=== PATIENT | male | born 1955 | race Caucasian/White ===

== ENCOUNTER → 2019-01-05 | Outpatient (CLI) | payer MEDICAID ==
--- NOTE | 2019-01-05 14:54 | Diagnostic Imaging Report ---
INDICATION: Chronic neck pain. Time of exam 2:34 p.m. FINDINGS: Three-view cervical spine were obtained. There is significant degenerative disc disease identified at the C5-6 and C6-7 levels. C7-T1 levels not included on the study. Prevertebral tissues are normal. Odontoid appears intact. No fractures are seen. IMPRESSION: Cervical spondylosis. No acute bony abnormality is detected. Dictated by: Dictated on workstation # [id number]
== END ==
LOC: RAD FS 14:28
PROVIDERS: ATTEND Family Medicine
DX: M47.812 Spondylosis without myelopathy or radiculopathy, cervical region (principal)
CPT/HCPCS: 72040

== ENCOUNTER 2019-07-08 11:59 | Emergency (ER) | payer MEDICAID ==
[~2019-07-08] VITALS: Ht 175 cm; Wt 93.0 kg
--- NOTE | 2019-07-08 12:27 | ED General ---
General Chief Complaint: General Problems/Pain Stated Complaint: GI/SOB Nursing Triage Note: NAUSEA AND HAD SOME COUGH WHEN LYING DOWN WITH SOB LAST PM Nursing Sepsis Screen: No Definite Risk Source of Information: Patient, EMS History of Present Illness Date Seen by Provider: Jul 08, 2019 Time Seen by Provider: 12:08 Initial Comments 64 yo M presenting with complaints of shortness of breath and epigastric bloating and discomfort. He states he was feeling bad at home and became so short of breath that he passed out. he has been constipated as well. He feels he has not been drinking enough water. This morning he felt that his mouth was dry and his stomach was bothering him some so he drank a coke instead of drinking his usual water or tea. Then he had increased gas and belching after that. He had some nausea with this as well. He also felt short of breath and took his breathing treatment at home. He felt light headed and was having a panic attack and states he passed out and his his left hand causing a bruise to it. He then had crawled to the couch and was trying to rest and make himself relax. He could not get the gas and bloating to improve so he finally called EMS to bring him to the hospital. Allergies and Home Medications Allergies Coded Allergies: No Known Drug Allergies (Unverified , 07/08/19) Home Medications Prednisone 20 Mg Tab, 40 MG PO DAILY Prescribed by: VASILE SMITH on 07/08/19 5592 Patient Home Medication List Home Medication List Reviewed: Yes Review of Systems Review of Systems Constitutional: No chills, No fever; malaise EENTM: No ear discharge, No ear pain, No hoarseness, No epistaxis, No nose congestion, No throat pain Respiratory: cough, dyspnea on exertion; No hemoptysis; phlegm, short of breath; No stridor; wheezing Cardiovascular: No chest pain, No palpitations; syncope (states he passed out when he became short of breath and panicked) Gastrointestinal: abdominal pain (bloating and gas since drinking coke this am), constipation; No diarrhea; nausea; No vomiting Genitourinary: no symptoms reported Musculoskeletal: other (bruise to left hand after hitting it when he passed out this am.) Skin: other (bruise to left hand from hitting it this am after he passed out) Psychiatric/Neurological: Denies Headache, Denies Seizure Past Cwuvmdq-Zxkyih-Mqkfrw Hx Past Med/Social Hx: Reviewed Nursing Past Med/Soc Hx Patient Social History Alcohol Use: Denies Use Recreational Drug Use: No Smoking Status: Never a Smoker 2nd Hand Smoke Exposure: No Recent Foreign Travel: No Contact w/Someone Who Travel: No Recent Infectious Disease Expo: No Recent Hopitalizations: No Physical Abuse: No Sexual Abuse: No Mistreated: No Fear: No Seasonal Allergies Seasonal Allergies: No Past Medical History Surgeries: Yes Gallbladder Respiratory: Yes COPD Cardiac: No Neurological: No Genitourinary: No Gastrointestinal: No Musculoskeletal: No Endocrine: No HEENT: No Cancer: No Psychosocial: No Integumentary: No Blood Disorders: No (CARLOS) Physical Exam Vital Signs Vital Signs - First Documented 07/08/19 07/08/19 12:11 13:52 Temp 36.9 Pulse 72 Resp 18 B/P (MAP) 139/85 (103) Pulse Ox 99 O2 Delivery Room Air Capillary Refill : Less Than 3 Seconds Height, Weight, BMI Height: '" Weight: lbs. oz. kg; 30.00 BMI Method: General Appearance: No Apparent Distress, WD/WN HEENT: PERRL/EOMI, Normal ENT Inspection, Pharynx Normal Neck: Full Range of Motion, Normal Inspection, Non Tender, Supple Respiratory: Chest Non Tender, Lungs Clear, Normal Breath Sounds, No Accessory Muscle Use, No Respiratory Distress Cardiovascular: Regular Rate, Rhythm, No Murmur, Normal Peripheral Pulses Gastrointestinal: No Pulsatile Mass, Soft, Abnormal Bowel Sounds (hyperactive), Distended; No Guarding, No Hepatomegaly, No Hernia, No Mass, No Rebound; Tenderness (mild epigastric tenderness) Rectal: Deferred Extremity: Normal Capillary Refill, Normal Inspection, Normal Range of Motion, Non Tender, No Pedal Edema Neurologic/Psychiatric: Alert, Oriented x3, No Motor/Sensory Deficits, Normal 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, 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 Skin: Warm/Dry, Other (mild faint bruise to back of left hand) Progress/Results/Core Measures Suspected Sepsis Recent Fever Within 48 Hours: No Infection Criteria Present: None New/Unexplained Altered Menta: No Sepsis Screen: No Definite Risk SIRS Temperature: Pulse: 72 Respiratory Rate: 18 Laboratory Tests 07/08/19 12:13: White Blood Count 13.8H Blood Pressure 139 /85 Mean: 103 Laboratory Tests 1/10/20 12:13: Creatinine 1.01, Platelet Count 242, Total Bilirubin 0.4 Results/Orders Lab Results Laboratory Tests Test 07/08/19 12:13 07/08/19 12:30 Range/Units White Blood Count 13.8 H 4.3-11.0 10^3/uL Red Blood Count 4.93 4.35-5.85 10^6/uL Hemoglobin 13.7 13.3-17.7 G/DL Hematocrit 43 40-54 % Mean Corpuscular Volume 87 80-99 FL Mean Corpuscular Hemoglobin 28 25-34 PG Mean Corpuscular Hemoglobin Concent 32 32-36 G/DL Red Cell Distribution Width 13.0 10.0-14.5 % Platelet Count 242 130-400 10^3/uL Mean Platelet Volume 10.0 7.4-10.4 FL Neutrophils (%) (Auto) 90 H 42-75 % Lymphocytes (%) (Auto) 3 L 12-44 % Monocytes (%) (Auto) 6 0-12 % Eosinophils (%) (Auto) 1 0-10 % Basophils (%) (Auto) 0 0-10 % Neutrophils # (Auto) 12.4 H 1.8-7.8 X 10^3 Lymphocytes # (Auto) 0.5 L 1.0-4.0 X 10^3 Monocytes # (Auto) 0.8 0.0-1.0 X 10^3 Eosinophils # (Auto) 0.1 0.0-0.3 10^3/uL Basophils # (Auto) 0.0 0.0-0.1 10^3/uL Neutrophils % (Manual) 85 % Lymphocytes % (Manual) 3 % Monocytes % (Manual) 3 % Eosinophils % (Manual) 1 % Band Neutrophils 8 % Blood Morphology Comment NORMAL Sodium Level 141 135-145 MMOL/L Potassium Level 3.9 3.6-5.0 MMOL/L Chloride Level 105 98-107 MMOL/L Carbon Dioxide Level 21 21-32 MMOL/L Anion Gap 15 H 5-14 MMOL/L Blood Urea Nitrogen 25 H 7-18 MG/DL Creatinine 1.01 0.60-1.30 MG/DL Estimat Glomerular Filtration Rate > 60 BUN/Creatinine Ratio 25 Glucose Level 138 H 70-105 MG/DL Calcium Level 8.8 8.5-10.1 MG/DL Corrected Calcium 8.6 8.5-10.1 MG/DL Total Bilirubin 0.4 0.1-1.0 MG/DL Aspartate Amino Transf (AST/SGOT) 26 5-34 U/L Alanine Aminotransferase (ALT/SGPT) 25 0-55 U/L Alkaline Phosphatase 52 40-136 U/L Total Protein 6.9 6.4-8.2 GM/DL Albumin 4.2 3.2-4.5 GM/DL Lipase 19 8-78 U/L Urine Color YELLOW Urine Clarity CLEAR Urine pH 6.0 5-9 Urine Specific [place] 1.025 H 1.016-1.022 Urine Protein NEGATIVE NEGATIVE Urine Glucose (UA) NEGATIVE NEGATIVE Urine Ketones NEGATIVE NEGATIVE Urine Nitrite NEGATIVE NEGATIVE Urine Bilirubin NEGATIVE NEGATIVE Urine Urobilinogen 0.2 < = 1.0 MG/DL Urine Leukocyte Esterase NEGATIVE NEGATIVE Urine RBC (Auto) NEGATIVE NEGATIVE Urine RBC NONE /HPF Urine WBC 0-2 /HPF Urine Squamous Epithelial Cells 0-2 /HPF Urine Crystals NONE /LPF Urine Bacteria NEGATIVE /HPF Urine Casts NONE /LPF Urine Mucus LARGE H /LPF Urine Culture Indicated NO My Orders Orders - VASILE SMITH MD Comprehensive Metabolic Panel (07/08/19 12:26) Lipase (07/08/19 12:26) Ua Culture If Indicated (07/08/19 12:26) Ed Iv/Invasive Line Start (07/08/19 12:26) Acute Abd Series (07/08/19 12:26) Cbc With Automated Diff (07/08/19 12:26) Manual Differential (07/08/19 12:13) Methylprednisolone Sod Succ (Solu-Medrol (07/08/19 13:41) Vital Signs/I&O 07/08/19 07/08/19 12:11 13:52 Temp 36.9 36.1 Pulse 72 72 Resp 18 18 B/P (MAP) 139/85 (103) 128/76 Pulse Ox 99 O2 Delivery Room Air Room Air Capillary Refill : Less Than 3 Seconds Blood Pressure Mean: 103 Progress Note #1: Progress Note obtain basic labs and check acute abdomen series films to check chest and abdomen. Give IVF for hydration. Progress Note #2: Progress Note No acute abnormality on Acute abdomen series. He does have increased stool and gas but no obstruction. no infiltrate on his lungs. Progress Note #3: Progress Note Labs stable with mild elevation of WBC count. He has improved symptoms with treatment in the ED. Will treat with steroid by IV and continue po at home for burst to help with his breathing and COPD. Check with pcp for continued concerns. For constipation try to push fluids and take stool softener. Take gas x medicine and limit soda to decrease his gas Diagnostic Imaging Diagonstic Imaging: Xray Plain Films/CT/US/NM/MRI: chest, abdomen Comments NAME: MAVIS GREENBERG [facility] REC#: [id number] PT STATUS: REG ER : 1955 PHYSICIAN: VASILE SMITH MD ADMIT DATE: 07/08/19/ER FS Draft Date of Exam:07/08/19 ACUTE ABD SERIES INDICATION: Cough, nausea COMPARISON: None available TECHNIQUE: 4 radiographs of the abdomen and chest dated 07/08/2019. FINDINGS: The cardiac silhouette is within normal limits in size. No significant pulmonary vascular congestion. The lungs are clear of focal pulmonary opacity. No pleural effusion. No pneumothorax. No acute osseous abnormality. Surgical clips are present within the right upper quadrant of the abdomen. Gas and stool is noted throughout the colon. No dilated loops of small bowel. No differential air-fluid levels. No free air. No suspicious calcifications overlying the renal shadows. No acute osseous abnormality. IMPRESSION: No acute abnormality identified. Dictated on workstation # [id number] Dict: 07/08/19 1251 Trans: 07/08/19 1256 [facility] [id number] Interpreted by: LAZARO FORBES MD Electronically signed by: Departure Impression Primary Impression: Mild dehydration Additional Impressions: COPD (chronic obstructive pulmonary disease) Qualified Codes: J41.0 - Simple chronic bronchitis Abdominal bloating Constipation Qualified Codes: K59.00 - Constipation, unspecified Disposition: HOME, SELF-CARE Condition: Stable Departure-Patient Inst. Decision time for Depature: 13:42 Referrals: DANYELLE CANTU MD (PCP/Family) Primary Care Physician Patient Instructions: Dehydration, Adult (DC), COPD Including Emphysema (DC), Constipation, Adult (DC) Add. Discharge Instructions: Continue to drink plenty of water and stay well hydrated. Avoid Coke and soda as they can cause you to have more gas and bloating. Try using the stool softener you have at home to help with the constipation and the Gas pill you have to help with gas and bloating. Check with clinic for continued problems and concerns All discharge instructions reviewed with patient and/or family. Voiced understanding. Scripts Prednisone (Prednisone) 20 Mg Tab 40 MG PO DAILY for COPD for 4 Days, #8 TAB 0 Refills Prov: VASILE SMITH MD 07/08/19 VASILE SMITH MD Jul 08, 2019 12:27
--- NOTE | 2019-07-08 12:56 | Diagnostic Imaging Report ---
INDICATION: Cough, nausea COMPARISON: None available TECHNIQUE: 4 radiographs of the abdomen and chest dated 07/08/2019. FINDINGS: The cardiac silhouette is within normal limits in size. No significant pulmonary vascular congestion. The lungs are clear of focal pulmonary opacity. No pleural effusion. No pneumothorax. No acute osseous abnormality. Surgical clips are present within the right upper quadrant of the abdomen. Gas and stool is noted throughout the colon. No dilated loops of small bowel. No differential air-fluid levels. No free air. No suspicious calcifications overlying the renal shadows. No acute osseous abnormality. IMPRESSION: No acute abnormality identified. Dictated by: Dictated on workstation # [id number]
[2019-07-08 13:10] LABS: CLARITY,URINE CLEAR; COLOR,URINE YELLOW
[2019-07-08 13:11] LABS: BACTERIA,URINE NEGATIVE /HPF; BILIRUBIN,URINE NEGATIVE (NEGATIVE); GLUCOSE, URINE (UA) NEGATIVE (NEGATIVE); KETONES,URINE NEGATIVE (NEGATIVE); LEUKOCYTE ESTERASE ,URINE NEGATIVE (NEGATIVE); NITRITE,URINE NEGATIVE (NEGATIVE); PROTEIN,URINE NEGATIVE (NEGATIVE); SQUAMOUS EPITHELIAL CELL,UR 0-2 /HPF; WBC,URINE 0-2 /HPF
[2019-07-08 13:12] LABS: ALKALINE PHOSPHATASE 52 U/L (40-136); BILIRUBIN,TOTAL 0.4 MG/DL (0.1-1.0); BUN/CREATININE RATIO 25; CALCIUM 8.8 MG/DL (8.5-10.1); CARBON DIOXIDE 21 MMOL/L (21-32); CHLORIDE 105 MMOL/L (98-107); CREATININE SERUM 1.01 MG/DL (0.60-1.30); GFR ESTIMATED > 60; GLUCOSE 138 MG/DL (70-105); POTASSIUM 3.9 MMOL/L (3.6-5.0); SODIUM 141 MMOL/L (135-145)
[2019-07-08 13:13] LABS: ALANINE AMINOTRANSFERASE 25 U/L (0-55); ALBUMIN 4.2 GM/DL (3.2-4.5); HEMATOCRIT 43 % (40-54); HEMOGLOBIN 13.7 G/DL (13.3-17.7); LIPASE 19 U/L (8-78); MEAN CORPUSCULAR HEMOGLOBIN 28 PG (25-34); MEAN CORPUSCULAR HGB CONC 32 G/DL (32-36); MEAN CORPUSCULAR VOLUME 87 FL (80-99); TOTAL PROTEIN 6.9 GM/DL (6.4-8.2); WHITE BLOOD COUNT 13.8 10^3/uL (4.3-11.0)
[2019-07-08 13:14] LABS: BASOPHILS % (AUTO) 0 % (0-10); EOSINOPHILS # (AUTO) 0.1 10^3/uL (0.0-0.3); EOSINOPHILS % (AUTO) 1 % (0-10); LYMPHOCYTES # (AUTO) 0.5 X 10^3 (1.0-4.0); LYMPHOCYTES % (AUTO) 3 % (12-44); MONOCYTES # (AUTO) 0.8 X 10^3 (0.0-1.0); MONOCYTES % (AUTO) 6 % (0-12); NEUTROPHILS # (AUTO) 12.4 X 10^3 (1.8-7.8); NEUTROPHILS % (AUTO) 90 % (42-75); PLATELET COUNT 242 10^3/uL (130-400)
[2019-07-08 13:15] LABS: BAND NEUTROPHILS 8 %; EOSINOPHILS % (MANUAL) 1 %; LYMPHOCYTES % (MANUAL) 3 %; MONOCYTES % (MANUAL) 3 %; NEUTROPHILS % (MANUAL) 85 %; RBC MORPH NORMAL
[2019-07-08] MEDS ORDERED: methylPREDNISolone 125 MG (Solu-MEDROL) VIAL IVP STA (13:41)
[2019-07-08] MEDS ORDERED: PRD20T PO (13:42)
[2019-07-08 13:52] VITALS: BP 128/76
== END 2019-07-08 13:53 | disposition home or self-care (01) ==
LOC: EDUNIT# 11:59 → ER FS 12:00
DX: E86.0 Dehydration (principal); J44.9 Chronic obstructive pulmonary disease, unspecified; K59.00 Constipation, unspecified
CPT/HCPCS: 36415; 74022; 80053; 81000; 83690; 85007; 85027

== ENCOUNTER 2019-07-12 12:51 | Emergency (ER) | payer MEDICAID ==
[~2019-07-12] VITALS: Ht 175.3 cm; Wt 72.7 kg
[~2019-07-12 12:51] MED LIST: PRD20T PO
--- NOTE | 2019-07-12 13:21 | ED Abdominal Pain ---
General Chief Complaint: Abdominal/GI Problems Stated Complaint: BOWEL CONSTIPATION Source of Information: Patient Exam Limitations: No Limitations History of Present Illness Date Seen by Provider: Jul 12, 2019 Time Seen by Provider: 13:00 Initial Comments The patient is a pleasant 64-year-old male presents for evaluation of abdominal discomfort and constipation for the last 2 weeks or so. He states that he came to the emergency department earlier and had an x-ray and some labs performed which were essentially unremarkable and he was sent home. He states he has not had a bowel movement since his ER visit. He also is complaining of some gas discomfort/left chest discomfort. He is alert and oriented 4, calm, and appears to be in no distress. He denies fevers or chills, nausea or vomiting, shortness of breath, back pain, dizziness, syncope, or any other complaints. Allergies and Home Medications Allergies Coded Allergies: No Known Drug Allergies (Unverified , 07/08/19) Home Medications Prednisone 20 Mg Tab, 40 MG PO DAILY Prescribed by: VASILE SMITH on 07/08/19 1342 Patient Home Medication List Home Medication List Reviewed: Yes Review of Systems Review of Systems Constitutional: no symptoms reported EENTM: No Symptoms Reported Respiratory: No Symptoms Reported Cardiovascular: No Symptoms Reported Gastrointestinal: Abdominal Pain, Constipated Genitourinary: No Symptoms Reported Musculoskeletal: no symptoms reported Skin: no symptoms reported Psychiatric/Neurological: No Symptoms Reported Endocrine: No Symptoms Reported Hematologic/Lymphatic: No Symptoms Reported All Other Systems Reviewed Negative Unless Noted: Yes Past Otjpwbv-Ztarmx-Qxrevf Hx Past Med/Social Hx: Reviewed Nursing Past Med/Soc Hx Patient Social History 2nd Hand Smoke Exposure: No Recent Foreign Travel: Yes Recent Hopitalizations: No Seasonal Allergies Seasonal Allergies: No Past Medical History Surgeries: Yes Gallbladder Respiratory: Yes COPD Cardiac: No Neurological: No Genitourinary: No Gastrointestinal: No Musculoskeletal: No Endocrine: No HEENT: No Cancer: No Psychosocial: No Integumentary: No Blood Disorders: No (CARLOS) Physical Exam Vital Signs Vital Signs - First Documented 07/12/19 12:55 Temp 36.7 Pulse 70 Resp 18 B/P (MAP) 142/99 (113) Pulse Ox 94 O2 Delivery Room Air Capillary Refill : Height/Weight/BMI Height: '" Weight: lbs. oz. kg; 30.00 BMI Method: General Appearance: WD/WN, no apparent distress HEENT: PERRL/EOMI, normal ENT inspection, TMs normal Neck: non-tender, full range of motion, supple Respiratory: chest non-tender, lungs clear, normal breath sounds, no respirato ry distress Cardiovascular: normal peripheral pulses, regular rate, rhythm, no edema, no gallop Gastrointestinal: normal bowel sounds, non tender, soft, abnormal bowel sounds (hypoactive), distended (mildly), tenderness (generalized, mild) Extremities: normal range of motion, non-tender, normal inspection, no pedal e bur[place], normal capillary refill 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, no motor/sensory deficits, alert, normal mood/affect, oriented x 3 Skin: normal color, warm/dry Progress/Results/Core Measures Results/Orders Lab Results Laboratory Tests Test 07/12/19 13:05 Range/Units White Blood Count 10.8 4.3-11.0 10^3/uL Red Blood Count 4.80 4.35-5.85 10^6/uL Hemoglobin 13.4 13.3-17.7 G/DL Hematocrit 41 40-54 % Mean Corpuscular Volume 85 80-99 FL Mean Corpuscular Hemoglobin 28 25-34 PG Mean Corpuscular Hemoglobin Concent 33 32-36 G/DL Red Cell Distribution Width 13.1 10.0-14.5 % Platelet Count 276 130-400 10^3/uL Mean Platelet Volume 10.1 7.4-10.4 FL Neutrophils (%) (Auto) 61 42-75 % Lymphocytes (%) (Auto) 26 12-44 % Monocytes (%) (Auto) 9 0-12 % Eosinophils (%) (Auto) 2 0-10 % Basophils (%) (Auto) 1 0-10 % Neutrophils # (Auto) 6.6 1.8-7.8 X 10^3 Lymphocytes # (Auto) 2.9 1.0-4.0 X 10^3 Monocytes # (Auto) 1.0 0.0-1.0 X 10^3 Eosinophils # (Auto) 0.2 0.0-0.3 10^3/uL Basophils # (Auto) 0.1 0.0-0.1 10^3/uL Sodium Level 141 135-145 MMOL/L Potassium Level 3.1 L 3.6-5.0 MMOL/L Chloride Level 104 98-107 MMOL/L Carbon Dioxide Level 22 21-32 MMOL/L Anion Gap 15 H 5-14 MMOL/L Blood Urea Nitrogen 12 7-18 MG/DL Creatinine 0.92 0.60-1.30 MG/DL Estimat Glomerular Filtration Rate > 60 BUN/Creatinine Ratio 13 Glucose Level 116 H 70-105 MG/DL Calcium Level 9.1 8.5-10.1 MG/DL Corrected Calcium 8.9 8.5-10.1 MG/DL Total Bilirubin 0.3 0.1-1.0 MG/DL Aspartate Amino Transf (AST/SGOT) 17 5-34 U/L Alanine Aminotransferase (ALT/SGPT) 36 0-55 U/L Alkaline Phosphatase 64 40-136 U/L Troponin I < 0.30 <0.30 NG/ML Total Protein 6.9 6.4-8.2 GM/DL Albumin 4.2 3.2-4.5 GM/DL My Orders Orders - RAMIREZ HOOKS DO Cbc With Automated Diff (07/12/19 13:01) Ekg Tracing (07/12/19 13:01) Comprehensive Metabolic Panel (07/12/19 13:01) O2 (07/12/19 13:01) Monitor-Rhythm Ecg Trace Only (07/12/19 13:01) Ed Iv/Invasive Line Start (07/12/19 13:01) Troponin I Fs (07/12/19 13:01) Acute Abd Series (07/12/19 13:01) Ct Abdomen/Pelvis W (07/12/19 13:13) Iohexol Injection (Omnipaque 350 Mg/Ml 1 (07/12/19 13:45) Received Contrast (Hold Metformin- Contr (07/12/19 13:45) Sodium Chloride Flush (Catheter Flush Sy (07/12/19 13:45) Ns (Ivpb) (Sodium Chloride 0.9% Ivpb Bag (07/12/19 13:45) Potassium Cl 10meq/50ml Ivpb (Kcl 10 Meq (07/12/19 14:45) Docusate Sodium Oral Solution (Colace Or (07/12/19 15:15) Magnesium Citrate Oral Soln (Citrate Of (07/12/19 15:15) Bisacodyl Suppository (Dulcolax Supposit (07/12/19 15:15) Potassium Chloride (Tablet) (K Dur Table (07/12/19 15:15) Medications Given in ED Current Medications Medications Dose Ordered Sig/Ghanshyam Route Start Time Stop Time Status Last Admin Dose Admin Iohexol 100 ml ONCE ONCE IV 07/12/19 13:45 07/12/19 13:46 DC 07/12/19 14:32 100 ML Sodium Chloride 10 ml NEEDED PRN IV 07/12/19 13:45 07/12/19 14:32 10 ML Sodium Chloride 100 ml ONCE ONCE IV 07/12/19 13:45 07/12/19 13:46 DC 07/12/19 14:32 100 ML Vital Signs/I&O 07/12/19 12:55 Temp 36.7 Pulse 70 Resp 18 B/P (MAP) 142/99 (113) Pulse Ox 94 O2 Delivery Room Air Progress Progress Note : Progress Note @1530 - Patient updated on lab and imaging results. There is no evidence of bowel obstruction. He states he would like to go home. He denies any chest discomfort or any other complaints at this time. He'll be given medications here and then additional medications to go home with to relieve his constipation. Advised patient to follow with his PCP in the next 1-2 days and to return to the Emergency Department immediately for new or worsening symptoms. Diagnostic Imaging Diagonstic Imaging: CT Comments CT ABDOMEN/PELVIS W EXAMINATION: CT Abdomen and Pelvis with intravenous contrast. TECHNIQUE: Multiple contiguous axial images were obtained through the abdomen and pelvis after the uneventful administration of intravenous contrast. All CT scans use one or more of the following dose optimizing techniques: automated exposure control, MA and/or KvP adjustment based on a patient size and exam type, or iterative reconstruction. HISTORY: Constipation for 3 days. COMPARISON: Abdominal radiographs performed earlier the same date. FINDINGS: The heart is unremarkable. The included lung bases are clear. There is a saccular aneurysm off the right renal artery measuring 1.7 x 1.3 cm (image 31 series 2). The kidneys have an unremarkable appearance without evidence of hydronephrosis or obstructing calculi. No enhancing renal masses are seen. The liver, spleen, pancreas, and adrenal glands have a normal appearance. The gallbladder is surgically absent. There is no pathologically enlarged mesenteric or retroperitoneal adenopathy. The bowel loops are nondilated. The appendix is visualized in the right lower quadrant and has a normal appearance. Diverticulosis of the colon is seen without evidence of acute diverticulitis. There is no free fluid or free air. No acute osseous abnormalities. There is calcified aortic and iliac atherosclerotic plaque without evidence of aneurysm. Ureters and bladder are grossly normal. There is no free air, loculated collection, or adenopathy in the pelvis. IMPRESSION: 1. No significant stool burden or evidence of bowel obstruction. 2. Diverticulosis without evidence of acute diverticulitis. 3. 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 Recommend follow-up in 6 months with CTA of the abdomen and pelvis to document stability. Dictated on workstation # [id number] Dict: 07/12/19 1444 Trans: 07/12/[address] [facility] [id number] Interpreted by: NGHIA TRUJILLO DO Electronically signed by: Departure Impression Primary Impression: Constipation Additional Impression: Hypokalemia Disposition: HOME, SELF-CARE Condition: Stable Departure-Patient Inst. Decision time for Depature: 15:42 Referrals: ADNYELLE CANTU MD (PCP/Family) Primary Care Physician Patient Instructions: Constipation, Adult (DC), Hypokalemia (DC) Add. Discharge Instructions: Take the prescribed medication as directed. Return to the Emergency Department immediately for new or worsening symptoms. Follow-up with your doctor in the next 2-3 days. Scripts Potassium Chloride (Potassium Chloride) 20 Meq Tablet.er 40 MEQ PO DAILY for 5 Days, #10 TAB Prov: RAMIREZ HOOKS DO 07/12/19 Magnesium Citrate (Magnesium Citrate) 296 Ml Solution 296 ML PO BID for Constipation for 7 Days, #14 EA Prov: RAMIREZ HOOKS DO 07/12/19 Bisacodyl (Dulcolax) 10 Mg Supp.rect 10 MG RC Q6H PRN for CONSTIPATION-1ST LINE for 7 Days, #14 SUPP.RECT Prov: RAMIREZ HOOKS DO 07/12/19 Docusate Sodium (Colace) 100 Mg Capsule 100 MG PO BID for 10 Days, #20 CAP Prov: RAMIREZ HOKOS DO 07/12/19 RAMIREZ HOOKS DO Jul 12, 2019 13:21
[2019-07-12] MEDS ORDERED: CATHETER FLUSH 10 ML SYR IV PRN (13:45)
[2019-07-12] MEDS ORDERED: HOLD METFORMIN - RECEIVED CONTRAST 20 ML VIAL IV SCH (13:45)
[2019-07-12] MEDS ORDERED: NS 100 ML (IVPB) BAG IV ONE (13:45)
[2019-07-12] MEDS ORDERED: IOHEXOL 350 MG/ML 100 ML (OMNIPAQUE 350) VIAL IV ONE (13:45)
--- NOTE | 2019-07-12 13:46 | Diagnostic Imaging Report ---
INDICATION: Constipation. TIME OF EXAM: 01:11 p.m. FINDINGS: The heart size is normal. The lungs are clear. No free air is detected. There is moderate stool throughout the colon. Bowel gas pattern is nonobstructed. No pathologic calcifications are seen. IMPRESSION: Moderate stool. The study is otherwise unremarkable. Dictated by: Dictated on workstation # [id number]
[2019-07-12 13:50] LABS: ALKALINE PHOSPHATASE 64 U/L (40-136); BILIRUBIN,TOTAL 0.3 MG/DL (0.1-1.0); BUN/CREATININE RATIO 13; CALCIUM 9.1 MG/DL (8.5-10.1); CARBON DIOXIDE 22 MMOL/L (21-32); CHLORIDE 104 MMOL/L (98-107); CREATININE SERUM 0.92 MG/DL (0.60-1.30); GFR ESTIMATED > 60; GLUCOSE 116 MG/DL (70-105); POTASSIUM 3.1 MMOL/L (3.6-5.0); SODIUM 141 MMOL/L (135-145)
[2019-07-12 13:51] LABS: ALANINE AMINOTRANSFERASE 36 U/L (0-55); ALBUMIN 4.2 GM/DL (3.2-4.5); HEMATOCRIT 41 % (40-54); HEMOGLOBIN 13.4 G/DL (13.3-17.7); MEAN CORPUSCULAR HEMOGLOBIN 28 PG (25-34); MEAN CORPUSCULAR VOLUME 85 FL (80-99); TOTAL PROTEIN 6.9 GM/DL (6.4-8.2); WHITE BLOOD COUNT 10.8 10^3/uL (4.3-11.0)
[2019-07-12 13:52] LABS: BASOPHILS # (AUTO) 0.1 10^3/uL (0.0-0.1); BASOPHILS % (AUTO) 1 % (0-10); EOSINOPHILS # (AUTO) 0.2 10^3/uL (0.0-0.3); EOSINOPHILS % (AUTO) 2 % (0-10); LYMPHOCYTES # (AUTO) 2.9 X 10^3 (1.0-4.0); LYMPHOCYTES % (AUTO) 26 % (12-44); MEAN CORPUSCULAR HGB CONC 33 G/DL (32-36); MEAN PLATELET VOLUME 10.1 FL (7.4-10.4); MONOCYTES % (AUTO) 9 % (0-12); NEUTROPHILS # (AUTO) 6.6 X 10^3 (1.8-7.8); NEUTROPHILS % (AUTO) 61 % (42-75); PLATELET COUNT 276 10^3/uL (130-400); RED CELL DISTRIBUTION WIDTH 13.1 % (10.0-14.5)
[2019-07-12] MEDS ORDERED: POTASSIUM CL 10MEQ/50ML IVPB 50 ML IV SCH (14:45)
--- NOTE | 2019-07-12 14:52 | Diagnostic Imaging Report ---
EXAMINATION: CT Abdomen and Pelvis with intravenous contrast. TECHNIQUE: Multiple contiguous axial images were obtained through the abdomen and pelvis after the uneventful administration of intravenous contrast. All CT scans use one or more of the following dose optimizing techniques: automated exposure control, MA and/or KvP adjustment based on a patient size and exam type, or iterative reconstruction. HISTORY: Constipation for 3 days. COMPARISON: Abdominal radiographs performed earlier the same date. FINDINGS: The heart is unremarkable. The included lung bases are clear. There is a saccular aneurysm off the right renal artery measuring 1.7 x 1.3 cm (image 31 series 2). The kidneys have an unremarkable appearance without evidence of hydronephrosis or obstructing calculi. No enhancing renal masses are seen. The liver, spleen, pancreas, and adrenal glands have a normal appearance. The gallbladder is surgically absent. There is no pathologically enlarged mesenteric or retroperitoneal adenopathy. The bowel loops are nondilated. The appendix is visualized in the right lower quadrant and has a normal appearance. Diverticulosis of the colon is seen without evidence of acute diverticulitis. There is no free fluid or free air. No acute osseous abnormalities. There is calcified aortic and iliac atherosclerotic plaque without evidence of aneurysm. Ureters and bladder are grossly normal. There is no free air, loculated collection, or adenopathy in the pelvis. IMPRESSION: 1. No significant stool burden or evidence of bowel obstruction. 2. Diverticulosis without evidence of acute diverticulitis. 3. 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 Recommend follow-up in 6 months with CTA of the abdomen and pelvis to document stability. Dictated by: Dictated on workstation # [id number]
[2019-07-12] MEDS ORDERED: BISACODYL 10 MG SUPP (DULCOLAX) PR ONE (15:15)
[2019-07-12] MEDS ORDERED: MAGNESIUM CITRATE 300 ML BTL PO ONE (15:15)
[2019-07-12] MEDS ORDERED: DOCUSATE SODIUM 10 MG/ML 10 ML UDC (COLACE) PO PRN (15:15)
[2019-07-12] MEDS ORDERED: KCL 20 MEQ TAB (K-DUR) PO ONE (15:15)
[2019-07-12] MEDS ORDERED: DOCU-143 PO (15:51)
[2019-07-12] MEDS ORDERED: BISA10SU58 RC (15:51)
[2019-07-12] MEDS ORDERED: MAGN296S50 PO (15:51)
[2019-07-12] MEDS ORDERED: POTA-51 PO (15:52)
[2019-07-12 16:30] VITALS: BP 122/74
== END 2019-07-12 16:30 | disposition home or self-care (01) ==
LOC: EDUNIT# 12:51 → ER FS 12:52
DX: K59.00 Constipation, unspecified (principal); E87.6 Hypokalemia; J44.9 Chronic obstructive pulmonary disease, unspecified
CPT/HCPCS: 36415; 74022; 74177; 80053; 84484; 85025; 93005; 93041; 96360

== ENCOUNTER 2020-04-02 13:48 | Emergency (ER) | payer MEDICAID ==
[~2020-04-02] VITALS: Ht 175.2 cm; Wt 97.0 kg
[~2020-04-02 13:48] MED LIST changes: +BISA10SU58 RC; +DOCU-143 PO; +MAGN296S71 PO; +POTA-51 PO
[2020-04-02 14:13] LABS: BASOPHILS % (AUTO) 1 % (0-10); EOSINOPHILS % (AUTO) 2 % (0-10); HEMATOCRIT 41 % (40-54); HEMOGLOBIN 13.5 G/DL (13.3-17.7); LYMPHOCYTES # (AUTO) 2.1 X 10^3 (1.0-4.0); LYMPHOCYTES % (AUTO) 25 % (12-44); MEAN CORPUSCULAR HEMOGLOBIN 28 PG (25-34); MEAN CORPUSCULAR HGB CONC 33 G/DL (32-36); MEAN CORPUSCULAR VOLUME 86 FL (80-99); MEAN PLATELET VOLUME 9.8 FL (7.4-10.4); MONOCYTES % (AUTO) 9 % (0-12); NEUTROPHILS # (AUTO) 5.3 X 10^3 (1.8-7.8); NEUTROPHILS % (AUTO) 62 % (42-75); PLATELET COUNT 285 10^3/uL (130-400); WHITE BLOOD COUNT 8.5 10^3/uL (4.3-11.0)
[2020-04-02 14:14] LABS: BASOPHILS # (AUTO) 0.1 10^3/uL (0.0-0.1); EOSINOPHILS # (AUTO) 0.2 10^3/uL (0.0-0.3); MONOCYTES # (AUTO) 0.8 X 10^3 (0.0-1.0)
[2020-04-02 14:20] LABS: INR 0.9 (0.8-1.4); PROTHROMBIN TIME PATIENT 12.7 SEC (12.2-14.7)
[2020-04-02 14:33] LABS: ALANINE AMINOTRANSFERASE 88 U/L (0-55); ALKALINE PHOSPHATASE 81 U/L (40-136); BILIRUBIN,TOTAL 0.2 MG/DL (0.1-1.0); BUN/CREATININE RATIO 19; CALCIUM 9.7 MG/DL (8.5-10.1); CARBON DIOXIDE 24 MMOL/L (21-32); CHLORIDE 104 MMOL/L (98-107); CREATININE SERUM 0.89 MG/DL (0.60-1.30); GFR ESTIMATED > 60; GLUCOSE 112 MG/DL (70-105); POTASSIUM 3.8 MMOL/L (3.6-5.0); SODIUM 142 MMOL/L (135-145)
[2020-04-02 14:34] LABS: ALBUMIN 4.4 GM/DL (3.2-4.5); TOTAL PROTEIN 7.4 GM/DL (6.4-8.2)
--- NOTE | 2020-04-02 14:35 | Diagnostic Imaging Report ---
HISTORY: Chest pain, cough, shortness of breath. COMPARISON: 07/12/2019. TECHNIQUE: Frontal view of the chest. FINDINGS: Lung volumes are normal. There is subtle airspace opacity in the right midlung. No pleural effusion or pneumothorax is seen. The cardiac silhouette is normal in size. IMPRESSION: 1. Mild airspace opacity in the right midlung, may represent infection in the appropriate clinical setting. Dictated by: Dictated on workstation # [id number]
--- NOTE | 2020-04-02 15:00 | ED General ---
General Chief Complaint: Chest Pain Stated Complaint: CHEST PAIN Nursing Triage Note: Patient presents to the ED with c/o of left chest pain. He states that the pain woke him up around 2am and he described it as very light pain. Patient reports that the pain started worsening around 0600 and has not improved. He denies anyother symptoms at this time. Nursing Sepsis Screen: No Definite Risk History of Present Illness Date Seen by Provider: Apr 02, 2020 Time Seen by Provider: 14:55 Initial Comments 64-year-old male has history of COPD no known cardiac history he states reports that at 2 AM 12 hours ago he had an episode of coughing pretty hard he noticed a twinge of pain in his left anterior ribs after that he noticed it again at 6 AM and has noted it intermittently since he has tenderness to palpation on the left anterior ribs and has pain with taking a deep breath is worried about a blood clot no hx of same Allergies and Home Medications Allergies Coded Allergies: No Known Drug Allergies (Unverified , 07/08/19) Home Medications Bisacodyl 10 Mg Supp.rect, 10 MG RC Q6H PRN for CONSTIPATION-1ST LINE Prescribed by: RAMIREZ HOOKS on 07/12/19 1551 Docusate Sodium 100 Mg Capsule, 100 MG PO BID Prescribed by: RAMIREZ HOOKS on 07/12/19 1551 Magnesium Citrate 296 Ml Solution, 296 ML PO BID Prescribed by: RAMIREZ HOOKS on 07/12/19 1551 Potassium Chloride 20 Meq Tablet.er, 40 MEQ PO DAILY Prescribed by: RAMIREZ HOOKS on 07/12/19 1552 Prednisone 20 Mg Tab, 40 MG PO DAILY Prescribed by: VASILE SMITH on 07/08/19 1342 Patient Home Medication List Home Medication List Reviewed: Yes Review of Systems Review of Systems Constitutional: no symptoms reported EENTM: no symptoms reported Respiratory: cough, other (episode at 2 AM has not persisted) Cardiovascular: chest pain; No palpitations, No syncope Gastrointestinal: no symptoms reported Genitourinary: no symptoms reported Musculoskeletal: no symptoms reported Past Vclcbcc-Mdxoyx-Bkpzaj Hx Patient Social History Alcohol Use: Denies Use Recreational Drug Use: No (HX of Drug use hasn't used since 1995) Smoking Status: Former Smoker Former Smoker, Quit: Jun 29, 1995 2nd Hand Smoke Exposure: No Recent Foreign Travel: No Contact w/Someone Who Travel: No Recent Infectious Disease Expo: No Recent Hopitalizations: No Physical Abuse: No Sexual Abuse: No Mistreated: No Fear: No Seasonal Allergies Seasonal Allergies: No Past Medical History Surgeries: Yes Gallbladder Respiratory: Yes COPD Cardiac: No Neurological: No Genitourinary: No Gastrointestinal: No Musculoskeletal: No Endocrine: No HEENT: No Cancer: No Psychosocial: No Integumentary: No Blood Disorders: No (CARLOS) Physical Exam Vital Signs Vital Signs - First Documented 04/02/20 13:59 Temp 36.7 Pulse 83 Resp 23 B/P (MAP) 154/90 (111) O2 Delivery Room Air Capillary Refill : Less Than 3 Seconds Height, Weight, BMI Height: '" Weight: lbs. oz. kg; 31.00 BMI Method: General Appearance: No Apparent Distress HEENT: Normal ENT Inspection, Moist Mucous Membranes Neck: Normal Inspection Respiratory: Lungs Clear, Normal Breath Sounds, No Accessory Muscle Use Cardiovascular: Regular Rate, Rhythm, Other (patient has definite left anterior rib cage tenderness to palpation which he states is the same pain he was concerned about) Gastrointestinal: Normal Bowel Sounds, Non Tender, Soft Extremity: Normal Inspection Progress/Results/Core Measures Suspected Sepsis Recent Fever Within 48 Hours: No Infection Criteria Present: None New/Unexplained Altered Menta: No Sepsis Screen: No Definite Risk SIRS Temperature: Pulse: 83 Respiratory Rate: 23 Laboratory Tests 04/02/20 13:55: White Blood Count 8.5 Blood Pressure 154 /90 Mean: 111 Laboratory Tests 04/02/20 13:55: Creatinine 0.89, INR Comment 0.9, Platelet Count 285, Total Bilirubin 0.2 Results/Orders Lab Results Laboratory Tests Test 04/02/20 13:55 Range/Units White Blood Count 8.5 4.3-11.0 10^3/uL Red Blood Count 4.78 4.35-5.85 10^6/uL Hemoglobin 13.5 13.3-17.7 G/DL Hematocrit 41 40-54 % Mean Corpuscular Volume 86 80-99 FL Mean Corpuscular Hemoglobin 28 25-34 PG Mean Corpuscular Hemoglobin Concent 33 32-36 G/DL Red Cell Distribution Width 12.8 10.0-14.5 % Platelet Count 285 130-400 10^3/uL Mean Platelet Volume 9.8 7.4-10.4 FL Immature Granulocyte % (Auto) 1 % Neutrophils (%) (Auto) 62 42-75 % Lymphocytes (%) (Auto) 25 12-44 % Monocytes (%) (Auto) 9 0-12 % Eosinophils (%) (Auto) 2 0-10 % Basophils (%) (Auto) 1 0-10 % Neutrophils # (Auto) 5.3 1.8-7.8 X 10^3 Lymphocytes # (Auto) 2.1 1.0-4.0 X 10^3 Monocytes # (Auto) 0.8 0.0-1.0 X 10^3 Eosinophils # (Auto) 0.2 0.0-0.3 10^3/uL Basophils # (Auto) 0.1 0.0-0.1 10^3/uL Immature Granulocyte # (Auto) 0.1 0.0-0.1 10^3/uL Prothrombin Time 12.7 12.2-14.7 SEC INR Comment 0.9 0.8-1.4 D-Dimer 0.32 0.00-0.49 UG/ML Sodium Level 142 135-145 MMOL/L Potassium Level 3.8 3.6-5.0 MMOL/L Chloride Level 104 98-107 MMOL/L Carbon Dioxide Level 24 21-32 MMOL/L Anion Gap 14 5-14 MMOL/L Blood Urea Nitrogen 17 7-18 MG/DL Creatinine 0.89 0.60-1.30 MG/DL Estimat Glomerular Filtration Rate > 60 BUN/Creatinine Ratio 19 Glucose Level 112 H 70-105 MG/DL Calcium Level 9.7 8.5-10.1 MG/DL Corrected Calcium 9.4 8.5-10.1 MG/DL Total Bilirubin 0.2 0.1-1.0 MG/DL Aspartate Amino Transf (AST/SGOT) 39 H 5-34 U/L Alanine Aminotransferase (ALT/SGPT) 88 H 0-55 U/L Alkaline Phosphatase 81 40-136 U/L Troponin I < 0.30 <0.30 NG/ML Total Protein 7.4 6.4-8.2 GM/DL Albumin 4.4 3.2-4.5 GM/DL My Orders Orders - ALESSIO BEASLEY MD Ekg Tracing (04/02/20 14:04) Chest 1 View Ap/Pa Only (04/02/20 14:04) Monitor-Rhythm Ecg Trace Only (04/02/20 14:04) Iv Heplock-Insert (Order) (04/02/20 14:04) Cbc With Automated Diff (04/02/20 14:04) Comprehensive Metabolic Panel (04/02/20 14:04) Troponin I Fs (04/02/20 14:04) Protime With Inr (04/02/20 14:04) Fibrin Degradation Products (04/02/20 14:39) Vital Signs/I&O 04/02/20 04/02/20 13:59 13:59 Temp 36.7 Pulse 83 Resp 23 B/P (MAP) 154/90 (111) O2 Delivery Room Air Capillary Refill : Less Than 3 Seconds Blood Pressure Mean: 111 Progress Note : Progress Note Chest x-ray does not show any definite infiltrate radiology notes "mild airspace capacity in the right mid lung may represent infection in the appropriate clinical setting" patient has not coughed since he's been here has no fever no increased white count Hemoglobin 13.5 white blood count 8500 CMP ess normal shows AST 39 ALT 88 troponin is negative d-dimer - neg INR 0.9 ECG Comment EKG shows a sinus rhythm at [address] changes Departure Impression Primary Impression: Chest pain Qualified Codes: R07.81 - Pleurodynia Disposition: 01 HOME, SELF-CARE Condition: Stable Departure-Patient Inst. Referrals: DANYELLE CANTU MD (PCP/Family) Primary Care Physician Patient Instructions: Pleuritic Chest Pain (DC) ALESSIO BEASLEY MD Apr 02, 2020 15:00
[2020-04-02 15:40] VITALS: BP 123/82
== END 2020-04-02 15:37 | disposition home or self-care (01) ==
LOC: EDUNIT# 13:48 → ER FS 13:50
DX: R07.9 Chest pain, unspecified (principal); J44.9 Chronic obstructive pulmonary disease, unspecified; Z87.891 Personal history of nicotine dependence; Z79.52 Long term (current) use of systemic steroids
CPT/HCPCS: 36415; 71045; 80053; 84484; 85025; 85379; 85610; 93005

== ENCOUNTER → 2021-06-14 | Outpatient (CLI) | payer MEDICAID ==
--- NOTE | 2021-06-14 14:38 | Diagnostic Imaging Report ---
Ultrasound head and neck. Indication: Throat pain There are no prior studies available for comparison. There is no solid or cystic mass identified. There is no adenopathy noted either. The thyroid gland was imaged during the course of the study. The right lobe measures 4.1 x 2.2 x 1.4 cm. Left lobe is estimated at 4.2 x 1.1 x 1.8 cm (normal gland 4-5 x 2 x 2 cm or less). Each lobe of the thyroid seems homogeneous. Impression: 1. There is no acute abnormality of the neck. There is no adenopathy identified either. 2. The thyroid gland is within normal limits. 3. If clinical concern regarding an underlying abnormality persists and further imaging is desired, then CT of the neck with contrast would be recommended. Dictated by: Dictated on workstation # [id number]
== END ==
LOC: RAD 13:50
PROVIDERS: ATTEND Otolaryngology Otolaryngology/Facial Plastic Surgery
DX: M54.2 Cervicalgia (principal); R07.0 Pain in throat
CPT/HCPCS: 76536

== ENCOUNTER 2021-12-16 16:07 | Inpatient (IN) | payer MEDICAID ==
[~2021-12-16] VITALS: Ht 172.7 cm; Wt 96.6 kg
--- NOTE | 2021-12-16 16:16 | ED General ---
General Stated Complaint: N/V/D,ABD PAIN Source of Information: Patient, EMS History of Present Illness Date Seen by Provider: Dec 16, 2021 Time Seen by Provider: 16:14 Initial Comments 66-year-old male presents with upper abdominal pain greater on the right than the left. Along with maybe some mild left-sided chest pain. He reports that abdominal pain started 2 days ago and was little bit worse today. That he started having some vomiting last night. He also complains of just some very minimal pain in the right side of his chest that started last night. Patient was brought in by EMS. In route he was given Compazine, 4 baby aspirin and a nitro. He reports that pain in his chest seems to be better. He feels like his belly is a little bit swollen. No reports of fever or chills. He reports about 2 hours ago he had a normal bowel movement. No cough, shortness of breath, suzi phoresis Allergies and Home Medications Allergies Coded Allergies: No Known Drug Allergies (Unverified , 07/08/19) Patient Home Medication List Home Medication List Reviewed: Yes Bisacodyl (Dulcolax) 10 Mg Supp.rect, 10 MG RC Q6H PRN for CONSTIPATION-1ST LINE Prescribed by: RAMIREZ HOOKS on 07/12/19 1551 Docusate Sodium (Colace) 100 Mg Capsule, 100 MG PO BID Prescribed by: RAMIREZ HOOKS on 07/12/19 1551 Magnesium Citrate (Magnesium Citrate) 296 Ml Solution, 296 ML PO BID Prescribed by: RAMIREZ HOOKS on 07/12/19 1551 Potassium Chloride (Potassium Chloride) 20 Meq Tablet.er, 40 MEQ PO DAILY Prescribed by: RAMIREZ HOOKS on 07/12/19 1552 Prednisone (Prednisone) 20 Mg Tab, 40 MG PO DAILY Prescribed by: VASILE SMITH on 07/08/19 1342 Review of Systems Review of Systems Constitutional: No chills, No fever Respiratory: No cough, No short of breath Cardiovascular: chest pain; No palpitations, No syncope Gastrointestinal: abdominal pain; No constipation, No diarrhea; nausea, vomiting Genitourinary: no symptoms reported Musculoskeletal: no symptoms reported Skin: no symptoms reported Psychiatric/Neurological: No Symptoms Reported Hematologic/Lymphatic: No Symptoms Reported Immunological/Allergic: no symptoms reported Past Czjlnwc-Ymcpuo-Ngwqyg Hx Seasonal Allergies Seasonal Allergies: No Past Medical History Surgeries: Yes Gallbladder Respiratory: Yes COPD Cardiac: No Neurological: No Genitourinary: No Gastrointestinal: No Musculoskeletal: No Endocrine: No HEENT: No Cancer: No Psychosocial: No Integumentary: No Blood Disorders: No (CARLOS) Physical Exam Vital Signs Vital Signs - First Documented 12/16/21 16:11 Temp 36.9 Pulse 78 Resp 18 B/P (MAP) 106/68 (81) O2 Delivery Room Air Capillary Refill : Height, Weight, BMI Height: '" Weight: lbs. oz. kg; 31.00 BMI Method: General Appearance: No Apparent Distress, WD/WN HEENT: PERRL/EOMI Neck: Non Tender, Supple Respiratory: Lungs Clear, Normal Breath Sounds Cardiovascular: Regular Rate, Rhythm, No Edema Gastrointestinal: Soft, Tenderness (Upper abdomen) Extremity: Normal Capillary Refill, Normal Inspection Neurologic/Psychiatric: Alert, Oriented x3, No Motor/Sensory Deficits, Normal Mood/Affect, solution developer II-XII Norm as Tested Skin: Normal Color, Warm/Dry Progress/Results/Core Measures Suspected Sepsis SIRS Temperature: Pulse: Respiratory Rate: Laboratory Tests 12/16/21 16:16: White Blood Count 7.7 Blood Pressure / Mean: Laboratory Tests 12/16/21 16:16: Creatinine 0.86, Platelet Count 239, Total Bilirubin 0.4 Results/Orders Lab Results Laboratory Tests Test 12/16/21 16:16 12/16/21 17:20 12/16/21 17:40 Range/Units White Blood Count 7.7 4.3-11.0 10^3/uL Red Blood Count 4.68 4.30-5.52 10^6/uL Hemoglobin 13.2 L 13.3-17.7 g/dL Hematocrit 37 L 40-54 % Mean Corpuscular Volume 79 L 80-99 fL Mean Corpuscular Hemoglobin 28 25-34 pg Mean Corpuscular Hemoglobin Concent 36 32-36 g/dL Red Cell Distribution Width 11.9 10.0-14.5 % Platelet Count 239 130-400 10^3/uL Mean Platelet Volume 9.1 9.0-12.2 fL Immature Granulocyte % (Auto) 1 % Neutrophils (%) (Auto) 62 42-75 % Lymphocytes (%) (Auto) 20 12-44 % Monocytes (%) (Auto) 16 H 0-12 % Eosinophils (%) (Auto) 1 0-10 % Basophils (%) (Auto) 1 0-10 % Neutrophils # (Auto) 4.8 1.8-7.8 10^3/uL Lymphocytes # (Auto) 1.5 1.0-4.0 10^3/uL Monocytes # (Auto) 1.2 H 0.0-1.0 10^3/uL Eosinophils # (Auto) 0.1 0.0-0.3 10^3/uL Basophils # (Auto) 0.1 0.0-0.1 10^3/uL Immature Granulocyte # (Auto) 0.0 0.0-0.1 10^3/uL Sodium Level 123 *L 122 *L 135-145 MMOL/L Potassium Level 3.6 3.6-5.0 MMOL/L Chloride Level 88 L 98-107 MMOL/L Carbon Dioxide Level 23 21-32 MMOL/L Anion Gap 12 5-14 MMOL/L Blood Urea Nitrogen 10 7-18 MG/DL Creatinine 0.86 0.60-1.30 MG/DL Estimat Glomerular Filtration Rate 97 BUN/Creatinine Ratio 12 Glucose Level 113 H 70-105 MG/DL Calcium Level 8.9 8.5-10.1 MG/DL Corrected Calcium 8.7 8.5-10.1 MG/DL Magnesium Level 1.7 1.6-2.4 MG/DL Total Bilirubin 0.4 0.1-1.0 MG/DL Aspartate Amino Transf (AST/SGOT) 26 5-34 U/L Alanine Aminotransferase (ALT/SGPT) 50 0-55 U/L Alkaline Phosphatase 73 40-136 U/L Troponin I < 0.30 <0.30 NG/ML C-Reactive Protein < 0.30 <0.50 MG/DL Total Protein 6.5 6.4-8.2 GM/DL Albumin 4.3 3.2-4.5 GM/DL Lipase 17 8-78 U/L Serum Alcohol < 10 <10 MG/DL Urine Color YELLOW Urine Clarity CLEAR Urine pH 7.0 5-9 Urine Specific [place] 1.010 L 1.016-1.022 Urine Protein NEGATIVE NEGATIVE Urine Glucose (UA) NEGATIVE NEGATIVE Urine Ketones NEGATIVE NEGATIVE Urine Nitrite NEGATIVE NEGATIVE Urine Bilirubin NEGATIVE NEGATIVE Urine Urobilinogen 0.2 < = 1.0 MG/DL Urine Leukocyte Esterase NEGATIVE NEGATIVE Urine RBC (Auto) NEGATIVE NEGATIVE Urine RBC NONE /HPF Urine WBC RARE /HPF Urine Squamous Epithelial Cells NONE /HPF Urine Crystals NONE /LPF Urine Bacteria NEGATIVE /HPF Urine Casts NONE /LPF Urine Mucus NEGATIVE /LPF Urine Culture Indicated NO My Orders Orders - VICENTA JOE L DO Cbc With Automated Diff (12/16/21 16:17) Comprehensive Metabolic Panel (12/16/21 16:17) Lipase (12/16/21 16:17) Magnesium (12/16/21 16:17) Ua Culture If Indicated (12/16/21 16:17) Crp Fs (12/16/21 16:17) Troponin I Fs (12/16/21 16:17) Acute Abd Series (12/16/21 16:17) Ed Iv/Invasive Line Start (12/16/21 16:17) Ekg Tracing (12/16/21 16:17) Monitor-Rhythm Ecg Trace Only (12/16/21 16:17) Ns Iv 1000 Ml (Sodium Chloride 0.9%) (12/16/21 16:17) Alcohol (12/16/21 16:55) Thyroid Stimulating Hormone (12/16/21 16:55) Phosphorus (12/16/21 16:55) Sodium (12/16/21 17:09) Sodium Chloride 3% (Hypertonic Sodium Ch (12/16/21 18:00) Vital Signs/I&O 12/16/21 16:11 Temp 36.9 Pulse 78 Resp 18 B/P (MAP) 106/68 (81) O2 Delivery Room Air Capillary Refill : Progress Note : Progress Note Patient with initial sodium of 123. Recheck to ensure that was not abnormal lab value came back at 122. Patient does have a GFR of 97. Discussed further with patient and he admits to drinking possibly gallons of free water a day. He does not drink any tea coffee or any other drink. I suspect he has hyponatremia from dilution. Initially was going to treat him with 3% saline however feel that he would likely do fine with a fluid restriction of free water. Patient to be transferred to [facility] for further inpatient evaluation and monitoring. Patient was accepted by Dr. Raymundo. Patient was transferred in stable condition ECG Initial ECG Impression Date: Dec 16, 2021 Initial ECG Impression Time: 16:16 Initial ECG Rate: 71 Initial ECG Rhythm: Normal Sinus Initial ECG Intervals: Normal Initial ECG Impression: Nonspecific Changes Comment no acute st changes Diagnostic Imaging Diagonstic Imaging: Xray Plain Films/CT/US/NM/MRI: abdomen Comments Date of Exam:12/16/21 ACUTE ABD SERIES INDICATION: Nausea and vomiting. Chest pain. Abdominal pain. COMPARISON: 04/02/2020 FINDINGS: Supine and upright views of the abdomen show a nondistended bowel gas pattern. No abnormal air fluid levels or free intraperitoneal air is seen. Moderate air and stool is noted within the ascending and transverse colon. No abnormal extraosseous calcifications are seen. Bony and soft tissue structures are within normal limits. No organomegaly is identified. Accompanying upright chest shows normal heart size and pulmonary vascularity. The lungs are well aerated and clear. The mediastinum is normal in appearance. IMPRESSION: 1. No bowel obstruction or free air. 2. Normal chest. No pneumonia or pulmonary edema. 3. Moderate colonic air and stool. Please correlate for constipation. Departure Impression Primary Impression: Hyponatremia Disposition: 30 STILL A PATIENT Condition: Stable Admissions Decision to Admit Reason: Admit from ER (General) Decision to Admit/Date: Dec 16, 2021 Time/Decision to Admit Time: 17:56 Departure-Patient Inst. Referrals: DANYELLE CANTU MD (PCP/Family) Primary Care Physician VICENTA JOE DO Dec 16, 2021 16:16
[2021-12-16] MEDS ORDERED: NS IV 1000 ML 1,000 ML IV STA (16:17)
[2021-12-16 16:30] LABS: BASOPHILS # (AUTO) 0.1 10^3/uL (0.0-0.1); BASOPHILS % (AUTO) 1 % (0-10); EOSINOPHILS # (AUTO) 0.1 10^3/uL (0.0-0.3); EOSINOPHILS % (AUTO) 1 % (0-10); HEMATOCRIT 37 % (40-54); HEMOGLOBIN 13.2 g/dL (13.3-17.7); LYMPHOCYTES # (AUTO) 1.5 10^3/uL (1.0-4.0); LYMPHOCYTES % (AUTO) 20 % (12-44); MEAN CORPUSCULAR HEMOGLOBIN 28 pg (25-34); MEAN CORPUSCULAR HGB CONC 36 g/dL (32-36); MEAN CORPUSCULAR VOLUME 79 fL (80-99); MEAN PLATELET VOLUME 9.1 fL (9.0-12.2); MONOCYTES # (AUTO) 1.2 10^3/uL (0.0-1.0); MONOCYTES % (AUTO) 16 % (0-12); NEUTROPHILS # (AUTO) 4.8 10^3/uL (1.8-7.8); NEUTROPHILS % (AUTO) 62 % (42-75); PLATELET COUNT 239 10^3/uL (130-400); WHITE BLOOD COUNT 7.7 10^3/uL (4.3-11.0)
--- NOTE | 2021-12-16 16:46 | Diagnostic Imaging Report ---
INDICATION: Nausea and vomiting. Chest pain. Abdominal pain. COMPARISON: 04/02/2020 FINDINGS: Supine and upright views of the abdomen show a nondistended bowel gas pattern. No abnormal air fluid levels or free intraperitoneal air is seen. Moderate air and stool is noted within the ascending and transverse colon. No abnormal extraosseous calcifications are seen. Bony and soft tissue structures are within normal limits. No organomegaly is identified. Accompanying upright chest shows normal heart size and pulmonary vascularity. The lungs are well aerated and clear. The mediastinum is normal in appearance. IMPRESSION: 1. No bowel obstruction or free air. 2. Normal chest. No pneumonia or pulmonary edema. 3. Moderate colonic air and stool. Please correlate for constipation. Dictated by: Dictated on workstation # [id number]
[2021-12-16 16:47] LABS: ALANINE AMINOTRANSFERASE 50 U/L (0-55); ALBUMIN 4.3 GM/DL (3.2-4.5); ALKALINE PHOSPHATASE 73 U/L (40-136); BILIRUBIN,TOTAL 0.4 MG/DL (0.1-1.0); BUN/CREATININE RATIO 12; CALCIUM 8.9 MG/DL (8.5-10.1); CARBON DIOXIDE 23 MMOL/L (21-32); CHLORIDE 88 MMOL/L (98-107); CREATININE SERUM 0.86 MG/DL (0.60-1.30); GFR ESTIMATED 97; GLUCOSE 113 MG/DL (70-105); LIPASE 17 U/L (8-78); MAGNESIUM 1.7 MG/DL (1.6-2.4); POTASSIUM 3.6 MMOL/L (3.6-5.0); TOTAL PROTEIN 6.5 GM/DL (6.4-8.2)
[2021-12-16 16:49] LABS: SODIUM 123 MMOL/L (135-145)
[2021-12-16 17:46] LABS: BILIRUBIN,URINE NEGATIVE (NEGATIVE); CLARITY,URINE CLEAR; COLOR,URINE YELLOW; GLUCOSE, URINE (UA) NEGATIVE (NEGATIVE); KETONES,URINE NEGATIVE (NEGATIVE); LEUKOCYTE ESTERASE ,URINE NEGATIVE (NEGATIVE); NITRITE,URINE NEGATIVE (NEGATIVE); PROTEIN,URINE NEGATIVE (NEGATIVE)
[2021-12-16 17:52] LABS: BACTERIA,URINE NEGATIVE /HPF; WBC,URINE RARE /HPF
[2021-12-16] MEDS ORDERED: SODIUM CHLORIDE 3% 500 ML IV SCH (18:00)
[2021-12-16 20:35] VITALS: BP 113/71
[2021-12-16] MEDS ORDERED: MELO15TA39 PO (21:19)
[2021-12-16] MEDS ORDERED: ZOLP10TA PO (21:19)
[2021-12-16] MEDS ORDERED: CETI10TA17 PO (21:19)
[2021-12-16] MEDS ORDERED: LISI10TA25 PO (21:19)
[2021-12-16] MEDS ORDERED: IPRA3AMP31 IH (21:24)
[2021-12-16] MEDS ORDERED: MILK OF MAGNESIA 400 MG/5 ML 30 ML UDC PO PRN (22:00)
[2021-12-16] MEDS ORDERED: RT-ALBUTEROL SULF 2.5 MG/3 ML PRE-MIX VIAL ONE (22:12)
[2021-12-16 22:34] LABS: POTASSIUM 4.2 MMOL/L (3.6-5.0)
[2021-12-16] MEDS ORDERED: ZOLPIDEM 5 MG (AMBIEN) TAB ONE (22:34)
[2021-12-16 22:35] LABS: CALCIUM 9.2 MG/DL (8.5-10.1)
[2021-12-16 22:39] LABS: CREATININE SERUM 0.95 MG/DL (0.60-1.30)
[2021-12-16] MEDS: ZOLPIDEM 5 MG (AMBIEN) TAB PO SCH (22:39)
[2021-12-16 23:13] VITALS: BP 130/72
[2021-12-17] MEDS ORDERED: RT-ALBUTEROL SULF 2.5 MG/3 ML PRE-MIX VIAL INH SCH (03:00)
[2021-12-17 03:44] VITALS: BP 118/70
--- NOTE | 2021-12-17 05:35 | History & Physical-Hospitalist ---
History of Present Illness HPI/Chief Complaint CC: Hyponatremia HPI: This is a 66 yr old male. He presented with nausea, vomiting, and abdominal pain. He was found to have a sodium level of 121, repeat was 122. He was placed on fluid restriction. 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 I did clinical counselor him on the need to limit his fluid intake. He will be monitored closely. I will discontinue telemetry. I will order MagCitrate for his constipation. Source: patient Exam Limitations: no limitations Date Seen 12/17/21 Time Seen by a Provider: 09:00 Attending Physician Corinna Leal Aprn PCP Admitting Physician: Lisset Raymundo MD Attending Physician: Lisset Raymundo MD Referring Physician Date of Admission Dec 16, 2021 at 20:35 Home Medications & Allergies Home Medications Reviewed patient Home Medication Reconciliation performed by pharmacy medication reconciliations furniture technician and/or nursing. Patients Allergies have been reviewed. Allergies Allergies Coded Allergies No Known Drug Allergies (Unverified07/08/19) Past Iiovlni-Nvzdlu-Mfsynd Hx Patient Social History Marrital Status: single Employed/Student: unemployed Tobacco Use?: No Smoking Status: Never a Smoker Smokeless Tobacco Frequency: Never a User Use of E-Cig and/or Vaping dev: No Use of E-Cig and/or Vaping Tanvir: Never a User Substance use?: No Alcohol Use?: No Pt feels they are or have been: No Seasonal Allergies Seasonal Allergies: No Current Status Advance Directives: No Communicates: Verbally Primary Language: Ethiopian Preferred Spoken Language: Ethiopian Is interpretation needed?: No Sensory deficits: Vision impairment Implanted or Applied Medical D: None Past Medical History Surgeries: Gallbladder COPD Hypertension Depression Blood Disorders: No (CARLOS) Review of Systems Constitutional: see HPI, malaise, weakness EENTM: no symptoms reported Respiratory: no symptoms reported Cardiovascular: no symptoms reported Gastrointestinal: no symptoms reported Genitourinary: no symptoms reported Musculoskeletal: no symptoms reported Skin: no symptoms reported Psychiatric/Neurological: No Symptoms Reported All Other Systems Reviewed Negative Unless Noted: Yes Physical Exam Physical Exam Vital Signs Vital Signs - First Documented 12/16/21 12/16/21 16:11 19:27 Temp 36.9 Pulse 78 Resp 18 B/P (MAP) 106/68 (81) Pulse Ox 97 O2 Delivery Room Air Capillary Refill : Less Than 3 Seconds Height, Weight, BMI Height: '" Weight: lbs. oz. kg; 32.38 BMI Method: General Appearance: No Apparent Distress, Chronically ill Eyes: Right Eye Normal Inspection, Right Eye PERRL HEENT: PERRL/EOMI, Normal ENT Inspection, Pharynx Normal, Moist Mucous Membranes Neck: Full Range of Motion, Normal Inspection, Non Tender Respiratory: Chest Non Tender, Lungs Clear, Normal Breath Sounds, No Accessory Muscle Use, No Respiratory Distress Cardiovascular: Regular Rate, Rhythm, No Edema, No Gallop, No JVD, No Murmur, Normal Peripheral Pulses Gastrointestinal: Normal Bowel Sounds, No Organomegaly, No Pulsatile Mass, Non Tender, Soft Back: Normal Inspection, No CVA Tenderness, No Vertebral Tenderness Extremity: Normal Capillary Refill, Normal Inspection, Normal Range of Motion, Non Tender, No Calf Tenderness, No Pedal Edema Neurologic/Psychiatric: Alert, Oriented x3, No Motor/Sensory Deficits, Normal Mood/Affect Skin: Normal Color, Warm/Dry Lymphatic: No Adenopathy Results Results/Procedures Labs Laboratory Tests 12/16/21 16:16 12/16/21 17:20 12/16/21 22:07 12/17/21 05:24 Patient resulted labs reviewed. Assessment/Plan Admission Diagnosis Assessment: Hyponatermia due to HCTZ and psychogenic polydipsia HTN Constipation Plan: Fluid restriction BM tx Admission Status: Inpatient Order (span 2 midnights) Reason for Inpatient Admission: hyponatremia Diagnosis/Problems Diagnosis/Problems (1) Hyponatremia Status: Acute SNEHA TRAN DO Dec 17, 2021 05:35
[2021-12-17] MEDS: CATHETER FLUSH 10 ML SYR IVP SCH ×3 (06:15→22:01)
[2021-12-17 06:20] LABS: BASOPHILS % (AUTO) 1 % (0-10); EOSINOPHILS # (AUTO) 0.1 10^3/uL (0.0-0.3); EOSINOPHILS % (AUTO) 1 % (0-10); HEMATOCRIT 41 % (40-54); HEMOGLOBIN 14.2 g/dL (13.3-17.7); LYMPHOCYTES # (AUTO) 1.8 10^3/uL (1.0-4.0); LYMPHOCYTES % (AUTO) 23 % (12-44); MEAN CORPUSCULAR HEMOGLOBIN 28 pg (25-34); MEAN CORPUSCULAR HGB CONC 35 g/dL (32-36); MEAN CORPUSCULAR VOLUME 82 fL (80-99); MEAN PLATELET VOLUME 9.7 fL (9.0-12.2); MONOCYTES # (AUTO) 1.2 10^3/uL (0.0-1.0); MONOCYTES % (AUTO) 15 % (0-12); NEUTROPHILS # (AUTO) 4.7 10^3/uL (1.8-7.8); NEUTROPHILS % (AUTO) 60 % (42-75); PLATELET COUNT 298 10^3/uL (130-400); WHITE BLOOD COUNT 7.8 10^3/uL (4.3-11.0)
[2021-12-17] MEDS: RT-ALBUTEROL SULF 2.5 MG/3 ML PRE-MIX VIAL INH SCH (06:24)
[2021-12-17 06:32] LABS: ALBUMIN 4.4 GM/DL (3.2-4.5); POTASSIUM 3.9 MMOL/L (3.6-5.0)
[2021-12-17 06:34] LABS: CALCIUM 9.4 MG/DL (8.5-10.1)
[2021-12-17 06:35] LABS: TOTAL PROTEIN 7.4 GM/DL (6.4-8.2)
[2021-12-17 06:37] LABS: BILIRUBIN,TOTAL 0.5 MG/DL (0.1-1.0)
[2021-12-17 06:39] LABS: CREATININE SERUM 0.94 MG/DL (0.60-1.30)
[2021-12-17 06:40] LABS: BILIRUBIN,DIRECT 0.2 MG/DL (0.0-0.3); BILIRUBIN,INDIRECT 0.3 MG/DL
[2021-12-17 08:13] VITALS: BP 134/76
[2021-12-17] MEDS ORDERED: CALCIUM CARBONATE 500 MG (TUMS) TAB.CHEW PO PRN (09:15)
[2021-12-17] MEDS ORDERED: ALPRAZolam 0.25 MG (XANAX) TAB PO PRN (09:15)
[2021-12-17] MEDS ORDERED: diphenhydrAMINE 25 MG TAB (BENADRYL) PO PRN (09:15)
[2021-12-17] MEDS ORDERED: MELATONIN 3 MG TABLET PO PRN (09:15)
[2021-12-17] MEDS ORDERED: ONDANSETRON 4 MG (ZOFRAN) ORAL DISSOLVE TAB PO PRN (09:15)
[2021-12-17] MEDS ORDERED: ONDANSETRON 4 MG/2 ML (SDV) Z0FRAN IVP PRN (09:15)
[2021-12-17] MEDS ORDERED: RT-ALBUTEROL/IPRATROPIUM 3 ML (DUONEB) VIAL ONE (09:27)
[2021-12-17] MEDS ORDERED: SENNA W/DOCUSATE (SENOKOT S) TABLET PO ONE (09:30)
[2021-12-17] MEDS ORDERED: MAGNESIUM CITRATE 300 ML BTL PO ONE (09:30)
[2021-12-17] MEDS: RT-ALBUTEROL/IPRATROPIUM 3 ML (DUONEB) VIAL IH SCH ×3 (09:33→20:53)
[2021-12-17] MEDS: SENNA W/DOCUSATE (SENOKOT S) TABLET PO SCH ×2 (09:53→21:00)
[2021-12-17] MEDS: LORATADINE (CLARITIN) 10 MG TAB PO SCH (09:54)
[2021-12-17] MEDS: HYDROcodone/APAP 5 MG/325 MG (LORTAB) TAB PO PRN ×3 (09:54→22:00)
[2021-12-17] MEDS: ENOXAPARIN 40 MG/0.4 ML (LOVENOX) SYR SC SCH (09:54)
[2021-12-17] MEDS: DOCUSATE SODIUM 100 MG (COLACE) CAP PO SCH ×2 (09:54→21:00)
[2021-12-17] MEDS ORDERED: MULT-1029 PO (10:13)
[2021-12-17] MEDS ORDERED: CARB200T6 PO (10:13)
[2021-12-17] MEDS ORDERED: FLUT1AER4 INH (10:13)
[2021-12-17] MEDS ORDERED: LISI1TAB46 PO (10:13)
[2021-12-17] MEDS ORDERED: ATOR10TA66 PO (10:13)
[2021-12-17 10:23] LABS: PHOSPHORUS 2.7 MG/DL (2.3-4.7)
[2021-12-17 11:40] VITALS: BP 132/77
[2021-12-17] MEDS ORDERED: RT-ALBUTEROL/IPRATROPIUM 3 ML (DUONEB) VIAL IH PRN (13:45)
[2021-12-17] MEDS: RT--FLUTICASONE/SALMETEROL 113-14 (AIRDUO RespiCLICK) IH SCH (15:03)
[2021-12-17 16:06] VITALS: BP 136/64
[2021-12-17 19:38] VITALS: BP 122/73
[2021-12-17] MEDS ORDERED: SENNA W/DOCUSATE (SENOKOT S) TABLET PO SCH (21:00)
[2021-12-17] MEDS: ZOLPIDEM 5 MG (AMBIEN) TAB PO SCH (22:00)
[2021-12-17 23:35] VITALS: BP 125/84
[2021-12-18] MEDS: RT-ALBUTEROL SULF 2.5 MG/3 ML PRE-MIX VIAL INH SCH (01:38)
[2021-12-18] MEDS ORDERED: RT-ALBUTEROL SULF 2.5 MG/3 ML PRE-MIX VIAL INH PRN (01:45)
[2021-12-18] MEDS: RT-ALBUTEROL/IPRATROPIUM 3 ML (DUONEB) VIAL IH SCH ×3 (02:59→15:09)
[2021-12-18] MEDS: CATHETER FLUSH 10 ML SYR IVP SCH ×2 (05:58→14:15)
[2021-12-18] MEDS ORDERED: MULTIVIT W/MINERALS TAB (THERAGRAN M) PO SCH (07:00)
[2021-12-18 07:29] VITALS: BP 132/85
[2021-12-18] MEDS: DOCUSATE SODIUM 100 MG (COLACE) CAP PO SCH (08:16)
[2021-12-18] MEDS: LORATADINE (CLARITIN) 10 MG TAB PO SCH (08:16)
[2021-12-18] MEDS: ENOXAPARIN 40 MG/0.4 ML (LOVENOX) SYR SC SCH (08:17)
[2021-12-18] MEDS: SENNA W/DOCUSATE (SENOKOT S) TABLET PO SCH (08:17)
[2021-12-18] MEDS: RT--FLUTICASONE/SALMETEROL 113-14 (AIRDUO RespiCLICK) IH SCH ×2 (08:25→08:29)
[2021-12-18] MEDS ORDERED: lisINopril 20 MG (PRINIVIL) TABLET PO SCH (09:00)
[2021-12-18] MEDS ORDERED: carBAMazepine 200 MG (TEGretol) TAB PO SCH (09:00)
[2021-12-18] MEDS ORDERED: NON-FORMULARY MEDICATION 1 EA EA (Multivit-Min/FA/Lycopene/Lut (Centrum Silver Tablet) 1 E PO SCH (09:00)
[2021-12-18] MEDS ORDERED: lisINopril 10 MG (PRINIVIL) TABLET PO SCH (09:00)
[2021-12-18] MEDS ORDERED: MELOXICAM 7.5 MG (MOBIC) TABLET PO SCH (09:00)
[2021-12-18] MEDS ORDERED: AtorvaSTATin TABLET 10 MG TABLET PO SCH (09:00)
[2021-12-18 09:52] LABS: HEMATOCRIT 39 % (40-54); HEMOGLOBIN 13.5 g/dL (13.3-17.7); MEAN CORPUSCULAR HEMOGLOBIN 29 pg (25-34); MEAN CORPUSCULAR HGB CONC 35 g/dL (32-36); MEAN CORPUSCULAR VOLUME 83 fL (80-99); MEAN PLATELET VOLUME 9.4 fL (9.0-12.2); PLATELET COUNT 261 10^3/uL (130-400); WHITE BLOOD COUNT 7.3 10^3/uL (4.3-11.0)
[2021-12-18 10:21] LABS: CALCIUM 9.2 MG/DL (8.5-10.1); CREATININE SERUM 0.93 MG/DL (0.60-1.30); POTASSIUM 3.8 MMOL/L (3.6-5.0)
[2021-12-18] MEDS ORDERED: LISI20TA26 PO (12:39)
--- NOTE | 2021-12-18 12:40 | Discharge Summary ---
Discharge [facility] Discharge Medications New, Converted or Re-Newed RX: Transmitted to Pharmacy New Medications: Lisinopril (Lisinopril) 20 Mg Tablet 20 MG PO DAILY, #30 TAB 0 Refills Continued Medications: Atorvastatin Calcium (Atorvastatin Calcium) 10 Mg Tablet 10 MG PO DAILY, TAB Carbamazepine (Carbamazepine) 200 Mg Tablet 200 MG PO DAILY, TAB Cetirizine HCl (Cetirizine HCl) 10 Mg Tablet 10 MG PO DAILY Fluticasone/Salmeterol (Fluticasone-Salmeterol 113-14) 113 Mcg-14 Mcg/Actuation Aer.pow.ba 2 PUFF INH DAILY, EA Ipratropium/Albuterol Sulfate (Iprat-Albut 0.5-3(2.5) mg/3 ml) 0.5 Mg-3 Mg (2.5 Mg Base)/3 Ml Ampul.neb 3 ML IH Q6H PRN for SHORTNESS OF BREATH, EA Meloxicam (Meloxicam) 15 Mg Tablet 15 MG PO DAILY Multivit-Min/FA/Lycopene/Lut (Centrum Silver Tablet) 0.4 Mg-300 Mcg-250 Mcg Tab let 1 EACH PO DAILY, TAB Zolpidem Tartrate (Ambien) 10 Mg Tablet 10 MG PO HS Discontinued Medications: Lisinopril/Hydrochlorothiazide (Lisinopril-Hctz 20-12.5 mg Tab) 20 Mg-12.5 Mg Tablet 1 EA PO DAILY, TAB Patient Instructions Goal/Follow Up Appt: Follow up with primary provider within a week of discharge. Patient Instructions: Do not drink more than 2 liters of fluid daily. Talk to your primary to make sure you are up to date on cancer screeinngs and to recheck your sodium level. Return to The Hospital For: Fever, chest pain, shortness of breath, confusion, dizziness, weakness Activity & Diet Discharge Diet: Regular Diet Activity as Tolerated: Yes YURIDIA CARREON MD Dec 18, 2021 12:40
--- NOTE | 2021-12-18 15:25 | Discharge Summary ---
Discharge Summary Hospital Course Hospital Course Date of Admission: Dec 16, 2021 at 20:35 Admission Diagnosis : Hyponatremia Abdominal pain Constipation COPD Hypertension Family Physician/Provider: Corinna Leal Aprn Date of Discharge: 12/18/21 Discharge Diagnosis: Polydipsia Hyponatremia Abdominal pain Constipation COPD Hypertension Hospital Course: Pt admitted with sodium 121, admitted to drinking maybe gallons of water per day, he relates to dry mouth from medications. He also was on lisinopril/HCTZ combo. He was placed on fluid restriction and HCTZ was held and his sodium was up to 134 at d/c. Recommended 2 liters of water intake per day maximum for now and stay off of HCTZ and follow up with primary for further eval, suspect due to polydipsia and med, but need to follow up levels and ensure up to date on cancer screenings, etc, as SIADH may still be a possibility if hyponatremia persists when fluid restriction is discontinued. Labs and Pending Lab Test: Laboratory Tests 12/18/21 09:44: White Blood Count 7.3, Red Blood Count 4.69, Hemoglobin 13.5, Hematocrit 39L, Mean Corpuscular Volume 83, Mean Corpuscular Hemoglobin 29, Mean Corpuscular Hemoglobin Concent 35, Red Cell Distribution Width 12.4, Platelet Count 261, Mean Platelet Volume 9.4, Sodium Level 134L, Potassium Level 3.8, Chloride Level 100, Carbon Dioxide Level 25, Anion Gap 9, Blood Urea Nitrogen 8, Creatinine 0.93, Estimat Glomerular Filtration Rate 92, BUN/Creatinine Ratio 9, Glucose Level 88, Calcium Level 9.2 Home Meds Active Lisinopril 20 Mg Tablet 20 Mg PO DAILY Reported Centrum Silver Tablet (Multivit-Min/FA/Lycopene/Lut) 0.4 Mg-300 Mcg-250 Mcg Tablet 1 Each PO DAILY Atorvastatin Calcium 10 Mg Tablet 10 Mg PO DAILY Carbamazepine 200 Mg Tablet 200 Mg PO DAILY Fluticasone-Salmeterol 113-14 (Fluticasone/Salmeterol) 113 Mcg-14 Mcg/Actuation Aer.pow.ba 2 Puff INH DAILY Iprat-Albut 0.5-3(2.5) mg/3 ml (Ipratropium/Albuterol Sulfate) 0.5 Mg-3 Mg (2.5 Mg Base)/3 Ml Ampul.neb 3 Ml IH Q6H PRN Meloxicam 15 Mg Tablet 15 Mg PO DAILY Ambien (Zolpidem Tartrate) 10 Mg Tablet 10 Mg PO HS Cetirizine HCl 10 Mg Tablet 10 Mg PO DAILY Assessment/Pt DC Instructions Follow up with primary provider within a week of discharge. Discharge Diet: No Restrictions Activity as Tolerated: Yes Discharge Physical Examination Allergies: Coded Allergies: No Known Drug Allergies (Unverified , 07/08/19) General Appearance: No Apparent Distress Respiratory: Lungs Clear, Normal Breath Sounds Cardiovascular: Regular Rate, Rhythm, No Murmur Skin: Normal Color, Warm/Dry Neurologic/Psychiatric: Alert, Oriented x3, Normal Mood/Affect YURIDIA CARREON MD Dec 18, 2021 15:24
[2021-12-18 15:35] VITALS: BP 132/85
== END 2021-12-18 15:35 | disposition home or self-care (01) | DRG 641 ==
LOC: EDUNIT# 16:07 → ER FS 16:08 → 4TH 20:35
PROVIDERS: ADMIT Family Medicine; ATTEND Family Medicine
DX: E87.1 Hypo-osmolality and hyponatremia (principal); K59.00 Constipation, unspecified; J44.9 Chronic obstructive pulmonary disease, unspecified; I10 Essential (primary) hypertension; R63.1 Polydipsia; T50.2X5A Adverse effect of carbonic-anhydrase inhibitors, benzothiadiazides and other diuretics, initial encounter
CPT/HCPCS: 36415; 74022; 80048; 80053; 80076; 80320; 81000; 82436; 83690; 83735; 83930; 83935; 84100; 84295; 84300; 84443; 84484; 85025; 85027; 86141; 93005; 93041; 94640; 94760

== ENCOUNTER 2022-06-25 16:35 | Emergency (ER) | payer MEDICAID ==
[~2022-06-25] VITALS: Ht 175 cm; Wt 100.0 kg
[~2022-06-25 16:35] MED LIST changes: +ATOR10TA66 PO; +CARB200T6 PO; +CETI10TA17 PO; +FLUT1AER4 INH; +IPRA3AMP31 IH; +LISI10TA25 PO; +LISI1TAB46 PO; +LISI20TA26 PO; +MAGN296S68 PO; -MAGN296S71 PO; +MELO15TA39 PO; +MULT-1029 PO; +ZOLP10TA PO
[2022-06-25 16:46] VITALS: BP 152/86
--- NOTE | 2022-06-25 16:55 | ED General ---
General Chief Complaint: General Problems/Pain Stated Complaint: FATIGUE Source of Information: Patient, EMS Exam Limitations: No Limitations History of Present Illness Date Seen by Provider: Jun 25, 2022 Time Seen by Provider: 16:38 Initial Comments 67-year-old male with past medical history of hypertension, hyperlipidemia, and prior hyponatremia coming in due to concerns for his sodium being low. He states has been very thirsty, drinking likely gallons of water per day, and continues to have a dry tongue and feels thirsty despite this. Endorses some abdominal bloating, but denies any nausea, vomiting, diarrhea, severe abdominal pain, chest pain, shortness of breath, fever, chills, focal weakness or numbness , headache, or any other concerns. Allergies and Home Medications Allergies Coded Allergies: No Known Drug Allergies (Unverified , 07/08/19) Patient Home Medication List Home Medication List Reviewed: Yes Atorvastatin Calcium (Atorvastatin Calcium) 10 Mg Tablet, 10 MG PO DAILY, (Reported) Entered as Reported by: RUSSEL RAMIREZ on 12/17/21 1013 Carbamazepine (Carbamazepine) 200 Mg Tablet, 200 MG PO DAILY, (Reported) Entered as Reported by: RUSSEL RAMIREZ on 12/17/21 1013 Cetirizine HCl (Cetirizine HCl) 10 Mg Tablet, 10 MG PO DAILY, (Reported) Entered as Reported by: ROWAN CARLISLE on 12/16/212118 Fluticasone/Salmeterol (Fluticasone-Salmeterol 113-14) 113 Mcg-14 Mcg/Actuation Aer.pow.ba, 2 PUFF INH DAILY, (Reported) Entered as Reported by: RUSSEL RAMIREZ on 12/17/21 1013 Ipratropium/Albuterol Sulfate (Iprat-Albut 0.5-3(2.5) mg/3 ml) 0.5 Mg-3 Mg (2.5 Mg Base)/3 Ml Ampul.neb, 3 ML IH Q6H PRN for SHORTNESS OF BREATH, (Reported) Entered as Reported by: ROWAN CARLISLE on 12/16/212123 Lisinopril (Lisinopril) 20 Mg Tablet, 20 MG PO DAILY Prescribed by: YURIDIA CARREON on 12/18/21 1239 Meloxicam (Meloxicam) 15 Mg Tablet, 15 MG PO DAILY, (Reported) Entered as Reported by: ROWAN CARLISLE on 12/16/212118 Multivit-Min/FA/Lycopene/Lut (Centrum Silver Tablet) 0.4 Mg-300 Mcg-250 Mcg Tablet, 1 EACH PO DAILY, (Reported) Entered as Reported by: RUSSEL RAMIREZ on 12/17/21 1013 Zolpidem Tartrate (Ambien) 10 Mg Tablet, 10 MG PO HS, (Reported) Entered as Reported by: ROWAN CARLISLE on 12/16/212118 Review of Systems Review of Systems Constitutional: No fever EENTM: see HPI Respiratory: no symptoms reported Cardiovascular: no symptoms reported Gastrointestinal: no symptoms reported Genitourinary: no symptoms reported Musculoskeletal: no symptoms reported Skin: no symptoms reported Psychiatric/Neurological: No Symptoms Reported Hematologic/Lymphatic: No Symptoms Reported Immunological/Allergic: no symptoms reported All Other Systems Reviewed Negative Unless Noted: Yes Past Asuhcbc-Dwpgly-Nrberc Hx Patient Social History Tobacco Use?: No Use of E-Cig and/or Vaping dev: No Substance use?: No Alcohol Use?: No Pt feels they are or have been: Unable to obtain Seasonal Allergies Seasonal Allergies: No Past Medical History Surgeries: Yes Gallbladder Respiratory: Yes COPD Cardiac: No Hypertension Neurological: No Genitourinary: No Gastrointestinal: No Musculoskeletal: No Endocrine: No HEENT: No Cancer: No Psychosocial: No Depression Integumentary: No Blood Disorders: No (CARLOS) Physical Exam Vital Signs Vital Signs - First Documented 06/25/22 16:46 Temp 36.7 Pulse 87 Resp 18 B/P (MAP) 152/86 (108) Pulse Ox 95 O2 Delivery Room Air Capillary Refill : Height, Weight, BMI Height: '" Weight: lbs. oz. kg; 32.38 BMI Method: General Appearance: No Apparent Distress, WD/WN Eyes: Bilateral Eye Normal Inspection HEENT: PERRL/EOMI, Pharynx Normal, Other (dry tongue) Neck: Full Range of Motion, Normal Inspection, Non Tender, Supple Respiratory: Chest Non Tender, Lungs Clear, Normal Breath Sounds, No Accessory Muscle Use, No Respiratory Distress Cardiovascular: Regular Rate, Rhythm, No Edema, Normal Peripheral Pulses Gastrointestinal: Normal Bowel Sounds, Non Tender, Soft; No Distended, No Guarding Back: Normal Inspection, No CVA Tenderness, No Vertebral Tenderness Extremity: Normal Capillary Refill, Normal Inspection, Normal Range of Motion, Non Tender, No Calf Tenderness, No Pedal Edema Neurologic/Psychiatric: Alert, Oriented x3, No Motor/Sensory Deficits, Normal Mood/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, 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 Norm as Tested Skin: Normal Color, Warm/Dry Lymphatic: No Adenopathy Progress/Results/Core Measures Suspected Sepsis SIRS Temperature: Pulse: 87 Respiratory Rate: 18 Laboratory Tests 06/25/22 16:42: White Blood Count 9.5 Blood Pressure 152 /86 Mean: 108 Laboratory Tests 06/25/22 16:42: Creatinine 0.98, Platelet Count 255, Total Bilirubin 0.5 Results/Orders Lab Results Laboratory Tests Test 06/25/22 16:42 06/25/22 16:43 06/25/22 17:14 Range/Units White Blood Count 9.5 4.3-11.0 10^3/uL Red Blood Count 4.67 4.30-5.52 10^6/uL Hemoglobin 13.0 L 13.3-17.7 g/dL Hematocrit 39 L 40-54 % Mean Corpuscular Volume 84 80-99 fL Mean Corpuscular Hemoglobin 28 25-34 pg Mean Corpuscular Hemoglobin Concent 33 32-36 g/dL Red Cell Distribution Width 13.2 10.0-14.5 % Platelet Count 255 130-400 10^3/uL Mean Platelet Volume 9.6 9.0-12.2 fL Immature Granulocyte % (Auto) 0 % Neutrophils (%) (Auto) 87 H 42-75 % Lymphocytes (%) (Auto) 6 L 12-44 % Monocytes (%) (Auto) 6 0-12 % Eosinophils (%) (Auto) 0 0-10 % Basophils (%) (Auto) 0 0-10 % Neutrophils # (Auto) 8.3 H 1.8-7.8 10^3/uL Lymphocytes # (Auto) 0.5 L 1.0-4.0 10^3/uL Monocytes # (Auto) 0.6 0.0-1.0 10^3/uL Eosinophils # (Auto) 0.0 0.0-0.3 10^3/uL Basophils # (Auto) 0.0 0.0-0.1 10^3/uL Immature Granulocyte # (Auto) 0.0 0.0-0.1 10^3/uL Sodium Level 139 135-145 MMOL/L Potassium Level 4.0 3.6-5.0 MMOL/L Chloride Level 106 98-107 MMOL/L Carbon Dioxide Level 22 21-32 MMOL/L Anion Gap 11 5-14 MMOL/L Blood Urea Nitrogen 19 H 7-18 MG/DL Creatinine 0.98 0.60-1.30 MG/DL Estimat Glomerular Filtration Rate 86 BUN/Creatinine Ratio 19 Glucose Level 108 H 70-105 MG/DL Calcium Level 8.6 8.5-10.1 MG/DL Corrected Calcium 8.4 L 8.5-10.1 MG/DL Magnesium Level 1.9 1.6-2.4 MG/DL Total Bilirubin 0.5 0.1-1.0 MG/DL Aspartate Amino Transf (AST/SGOT) 274 H 5-34 U/L Alanine Aminotransferase (ALT/SGPT) 250 H 0-55 U/L Alkaline Phosphatase 104 40-136 U/L Total Protein 6.7 6.4-8.2 GM/DL Albumin 4.2 3.2-4.5 GM/DL Lipase 16 8-78 U/L Influenza Type A (RT-PCR) Not Detected Not Detecte Influenza Type B (RT-PCR) Not Detected Not Detecte SARS-CoV-2 RNA (RT-PCR) Not Detected Not Detecte My Orders Orders - DHAVAL GOMEZ MD Cbc With Automated Diff (06/25/22 16:39) Comprehensive Metabolic Panel (06/25/22 16:39) Lipase (06/25/22 16:39) Magnesium (06/25/22 16:39) Ua Culture If Indicated (06/25/22 16:39) Influenza A And B By Pcr (06/25/22 16:39) Covid 19 Inhouse Test (06/25/22 16:39) Acetaminophen Tablet (Tylenol Tablet) (06/25/22 17:30) Medications Given in ED Current Medications Medications Dose Ordered Sig/Ghanshyam Route Start Time Stop Time Status Last Admin Dose Admin Acetaminophen 1,000 mg ONCE ONCE PO 06/25/22 17:30 06/25/22 17:31 DC 06/25/22 17:28 1,000 MG Vital Signs/I&O 06/25/22 16:46 Temp 36.7 Pulse 87 Resp 18 B/P (MAP) 152/86 (108) Pulse Ox 95 O2 Delivery Room Air Capillary Refill : Progress Note : Progress Note 67-year-old male with above history coming in due to dry mucous membranes, feeling thirsty, concerned that his sodium was low. ABCs were intact and vitals were stable on presentation. Physical exam with some dry mucous membranes, but otherwise no acute abnormality. Neuro exam is normal. An IV was placed and labs were drawn and were significant for normal white blood cell count, normal sodium, normal creatinine, elevated transaminases which is nonspecific. Flu and COVID test negative. Abdominal exam reassuring. Unclear the etiology, however I will have him follow-up with his PCP for continued work-up. He may need a referral to a inserting machine operator if he has persistent thirst symptoms. It is possible of psychogenic. Departure Impression Primary Impression: Transaminitis Additional Impression: Always thirsty Disposition: 01 HOME, SELF-CARE Condition: Stable Departure-Patient Inst. Decision time for Depature: 17:42 Referrals: RAMESH LUONG APRN (PCP/Family) Primary Care Physician Patient Instructions: Dehydration, Adult (DC) Add. Discharge Instructions: Your sodium was normal today at 139. If you feel thirsty, drink water, but try not to overdo it. Please schedule an appointment tomorrow with your regular doctor to discuss your symptoms and see if they want to refer you to a inserting machine operator given your thirst. Your liver enzymes were also elevated around 200 for your AST and ALT. You need to have these redrawn within the next month or so to see if they improve on their own or if you need a work-up regarding this. Work/School Note: Work Release Form Date Seen in the Emergency Department: Jun 25, 2022 Return to Work: Jun 26, 2022 Restrictions: No Restrictions DHAVAL GOMEZ MD Jun 25, 2022 16:55
[2022-06-25 17:03] LABS: BASOPHILS % (AUTO) 0 % (0-10); EOSINOPHILS % (AUTO) 0 % (0-10); HEMATOCRIT 39 % (40-54); LYMPHOCYTES # (AUTO) 0.5 10^3/uL (1.0-4.0); LYMPHOCYTES % (AUTO) 6 % (12-44); MEAN CORPUSCULAR HEMOGLOBIN 28 pg (25-34); MEAN CORPUSCULAR HGB CONC 33 g/dL (32-36); MEAN CORPUSCULAR VOLUME 84 fL (80-99); MEAN PLATELET VOLUME 9.6 fL (9.0-12.2); MONOCYTES # (AUTO) 0.6 10^3/uL (0.0-1.0); MONOCYTES % (AUTO) 6 % (0-12); NEUTROPHILS # (AUTO) 8.3 10^3/uL (1.8-7.8); NEUTROPHILS % (AUTO) 87 % (42-75); PLATELET COUNT 255 10^3/uL (130-400); WHITE BLOOD COUNT 9.5 10^3/uL (4.3-11.0)
[2022-06-25] MEDS ORDERED: ACETAMINOPHEN 500 MG TAB (TYLENOL) PO ONE (17:30)
[2022-06-25 17:37] LABS: ALBUMIN 4.2 GM/DL (3.2-4.5); BILIRUBIN,TOTAL 0.5 MG/DL (0.1-1.0); CALCIUM 8.6 MG/DL (8.5-10.1); CREATININE SERUM 0.98 MG/DL (0.60-1.30); MAGNESIUM 1.9 MG/DL (1.6-2.4); TOTAL PROTEIN 6.7 GM/DL (6.4-8.2)
[2022-06-25 17:53] LABS: BILIRUBIN,URINE NEGATIVE (NEGATIVE); CLARITY,URINE CLEAR; COLOR,URINE YELLOW; GLUCOSE, URINE (UA) NEGATIVE (NEGATIVE); KETONES,URINE NEGATIVE (NEGATIVE); LEUKOCYTE ESTERASE ,URINE NEGATIVE (NEGATIVE); NITRITE,URINE NEGATIVE (NEGATIVE); PROTEIN,URINE NEGATIVE (NEGATIVE)
[2022-06-25 18:20] LABS: AMORPHOUS SEDIMENT,UR FEW AMOR URATES /LPF; BACTERIA,URINE TRACE /HPF; RBC,URINE 0-2 /HPF; SQUAMOUS EPITHELIAL CELL,UR 0-2 /HPF; WBC,URINE 0-2 /HPF
[2022-06-25 18:21] LABS: HYALINE CASTS, URINE RARE /LPF
== END 2022-06-25 18:05 | disposition home or self-care (01) ==
LOC: EDUNIT# 16:35 → ER FS 16:36
DX: R74.01 Elevation of levels of liver transaminase levels (principal); R63.1 Polydipsia; Z20.822 Contact with and (suspected) exposure to COVID-19
CPT/HCPCS: 36415; 80053; 81000; 83690; 83735; 85025; 87636; 99283

== ENCOUNTER 2023-03-30 23:14 | Emergency (ER) | payer MEDICAID ==
[~2023-03-30] VITALS: Ht 175.2 cm; Wt 102.5 kg
[~2023-03-30 23:14] MED LIST changes: +POTA-330 PO; -POTA-51 PO
--- NOTE | 2023-03-30 23:23 | ED Respiratory ---
General Chief Complaint: Respiratory Problems Source: patient Exam Limitations: no limitations History of Present Illness Date Seen by Provider: Mar 30, 2023 Time Seen by Provider: 23:12 Initial Comments 67-year-old male with COPD presents for shortness of breath. He states symptoms came on abruptly about 30 to 45 minutes prior to arrival. He states he had onset of wheezing and shortness of breath. No chest pain. No fevers or chills. No nausea or vomiting. No abdominal pain or changes in bowel or bladder habits. No sick contacts. EMS gave him a breathing treatment in route. He was noted to have significantly elevated blood pressures in route. On arrival he tells me he missed his blood pressure medicine this morning. On oxygen at home and arrives on 4 L of oxygen via nasal cannula. All other systems reviewed and negative except documented per HPI. Voice recognition software was used to help create this chart Allergies and Home Medications Allergies Coded Allergies: No Known Drug Allergies (Unverified , 03/30/23) Patient Home Medication List Home Medication List Reviewed: Yes Atorvastatin Calcium (Atorvastatin Calcium) 10 Mg Tablet, 10 MG PO DAILY, (Reported) Entered as Reported by: RUSSEL RAMIREZ on 12/17/21 1013 Carbamazepine (Carbamazepine) 200 Mg Tablet, 200 MG PO DAILY, (Reported) Entered as Reported by: RUSSEL RAMIREZ on 12/17/21 1013 Cetirizine HCl (Cetirizine HCl) 10 Mg Tablet, 10 MG PO DAILY, (Reported) Entered as Reported by: ROWAN CARLISLE on 12/16/212118 Fluticasone/Salmeterol (Fluticasone-Salmeterol 113-14) 113 Mcg-14 Mcg/Actuation Aer.pow.ba, 2 PUFF INH DAILY, (Reported) Entered as Reported by: RUSSEL RAMIREZ on 12/17/21 1013 Ipratropium/Albuterol Sulfate (Iprat-Albut 0.5-3(2.5) mg/3 ml) 0.5 Mg-3 Mg (2.5 Mg Base)/3 Ml Ampul.neb, 3 ML IH Q6H PRN for SHORTNESS OF BREATH, (Reported) Entered as Reported by: ROWAN CARLISLE on 12/16/212123 Lisinopril (Lisinopril) 20 Mg Tablet, 20 MG PO DAILY Prescribed by: YURIDIA CARREON on 12/18/21 1239 Meloxicam (Meloxicam) 15 Mg Tablet, 15 MG PO DAILY, (Reported) Entered as Reported by: ROWAN CARLISLE on 12/16/212118 Multivit-Min/FA/Lycopene/Lut (Centrum Silver Tablet) 0.4 Mg-300 Mcg-250 Mcg Tablet, 1 EACH PO DAILY, (Reported) Entered as Reported by: RUSSEL RAMIREZ on 12/17/21 1013 Prednisone (Prednisone) 50 Mg Tab, 50 MG PO DAILY Prescribed by: CESAR BAGLEY MD on 03/31/23 0018 Zolpidem Tartrate (Ambien) 10 Mg Tablet, 10 MG PO HS, (Reported) Entered as Reported by: ROWAN CARLISLE on 12/16/212118 Review of Systems Review of Systems Constitutional: see HPI Past Ckwdanv-Bxbsmq-Bpspup Hx Patient Social History Tobacco Use?: No Use of E-Cig and/or Vaping dev: No Substance use?: No Alcohol Use?: No Seasonal Allergies Seasonal Allergies: No Past Medical History Surgeries: Yes Gallbladder Respiratory: Yes COPD Cardiac: No Hypertension Neurological: No Genitourinary: No Gastrointestinal: No Musculoskeletal: No Endocrine: No HEENT: No Cancer: No Psychosocial: No Depression Integumentary: No Blood Disorders: No (CARLOS) Physical Exam Vital Signs - First Documented Capillary Refill : Height: '" Weight: lbs. oz. kg; 32.00 BMI Method: General Appearance: WD/WN, no apparent distress HEENT: normal ENT inspection, pharynx normal Neck: non-tender, supple Respiratory: chest non-tender, no respiratory distress, wheezing (Mild inspiratory and expiratory wheezes bilaterally) Cardiovascular: regular rate, rhythm, no murmur Gastrointestinal: normal bowel sounds, non tender, soft, no organomegaly Extremities: normal range of motion, normal inspection, no pedal edema Neurologic/Psychiatric: alert, oriented x 3 Skin: normal color, warm/dry Progress/Results/Core Measures Suspected Sepsis SIRS Temperature: Pulse: Respiratory Rate: Laboratory Tests 03/30/23 23:25: White Blood Count 9.6 Blood Pressure / Mean: Laboratory Tests 03/30/23 23:25: Creatinine 0.92, Platelet Count 241 Results/Orders Lab Results Laboratory Tests Test 03/30/23 23:25 Range/Units White Blood Count 9.6 4.3-11.0 10^3/uL Red Blood Count 4.89 4.30-5.52 10^6/uL Hemoglobin 13.8 13.3-17.7 g/dL Hematocrit 42 40-54 % Mean Corpuscular Volume 86 80-99 fL Mean Corpuscular Hemoglobin 28 25-34 pg Mean Corpuscular Hemoglobin Concent 33 32-36 g/dL Red Cell Distribution Width 12.9 10.0-14.5 % Platelet Count 241 130-400 10^3/uL Mean Platelet Volume 9.7 9.0-12.2 fL Immature Granulocyte % (Auto) 1 % Neutrophils (%) (Auto) 51 42-75 % Lymphocytes (%) (Auto) 34 12-44 % Monocytes (%) (Auto) 11 0-12 % Eosinophils (%) (Auto) 2 0-10 % Basophils (%) (Auto) 1 0-10 % Neutrophils # (Auto) 4.9 1.8-7.8 10^3/uL Lymphocytes # (Auto) 3.2 1.0-4.0 10^3/uL Monocytes # (Auto) 1.1 H 0.0-1.0 10^3/uL Eosinophils # (Auto) 0.2 0.0-0.3 10^3/uL Basophils # (Auto) 0.1 0.0-0.1 10^3/uL Immature Granulocyte # (Auto) 0.1 0.0-0.1 10^3/uL Sodium Level 138 135-145 MMOL/L Potassium Level 3.8 3.6-5.0 MMOL/L Chloride Level 101 98-107 MMOL/L Carbon Dioxide Level 25 21-32 MMOL/L Anion Gap 12 5-14 MMOL/L Blood Urea Nitrogen 11 7-18 MG/DL Creatinine 0.92 0.60-1.30 MG/DL Estimat Glomerular Filtration Rate 92 BUN/Creatinine Ratio 12 Glucose Level 109 H 70-105 MG/DL Calcium Level 8.9 8.5-10.1 MG/DL SARS-CoV-2 RNA (RT-PCR) Not Detected Not Detecte My Orders Orders - CESAR BAGLEY DO Cbc And Automated Diff (03/30/23 23:19) Basic Metabolic Panel (03/30/23 23:19) Chest 1 View Ap/Pa Only (03/30/23 23:19) Covid 19 Inhouse Test (03/30/23 23:19) Prednisone Tablet (Prednisone Tablet) (03/30/23 23:30) Lisinopril Tablet (Lisinopril Tablet) (03/30/23 23:30) Hydralazine Injection (Hydralazine Injec (03/30/23 23:30) Medications Given in ED Current Medications Medications Dose Ordered Sig/Ghanshyam Route Start Time Stop Time Status Last Admin Dose Admin Hydralazine HCl 10 mg ONCE ONCE IV 03/30/23 23:30 03/30/23 23:31 DC 03/30/23 23:44 10 MG Lisinopril 40 mg ONCE ONCE PO 03/30/23 23:30 03/30/23 23:31 DC 03/30/23 23:42 40 MG Prednisone 50 mg ONCE ONCE PO 03/30/23 23:30 03/30/23 23:31 DC 03/30/23 23:40 50 MG Vital Signs/I&O 03/30/23 03/30/23 23:15 23:15 Temp 36.7 Pulse 88 Resp 20 B/P (MAP) 218/112 (147) Pulse Ox 95 O2 Delivery Room Air Room Air Capillary Refill : Departure Communication (Admissions) Patient is hemodynamically stable. Oxygen saturation on room air on arrival is 96% he is in no respiratory distress but he does have some significant wheezing. This is cleared up after DuoNeb. The patient himself states he feels 100% better now back to normal. Was also given p.o. prednisone. Chest x-ray is clear on my independent review. Labs are reassuring and unremarkable. COVID test is negative. We discharged home with oral steroids and close follow-up. Impression Primary Impression: COPD exacerbation Disposition: 01 HOME, SELF-CARE Condition: Stable Departure-Patient Inst. Referrals: RAMESH LUONG APRN (PCP/Family) Primary Care Physician Patient Instructions: COPD Exacerbation, Adult ED Add. Discharge Instructions: Take the steroids as prescribed until they are gone. Continue your inhalers at home. Continue all blood pressure medication previously prescribed. Return to the emergency department for any severe concerns. Follow with your primary doctor within the next week for further treatment recommendations All discharge instructions reviewed with patient and/or family. Voiced understanding. Scripts Prednisone (Prednisone) 50 Mg Tab 50 MG PO DAILY for 5 Days, #5 TAB Prov: CESAR BAGLEY DO 03/31/23 CESAR BAGLEY DO Mar 30, 2023 23:23
[2023-03-30] MEDS ORDERED: hydrALAZINE INJECTION 20 MG/ML VIAL IV ONE (23:30)
[2023-03-30] MEDS ORDERED: predniSONE 20 MG TABLET PO ONE (23:30)
[2023-03-30 23:35] LABS: BASOPHILS # (AUTO) 0.1 10^3/uL (0.0-0.1); BASOPHILS % (AUTO) 1 % (0-10); EOSINOPHILS # (AUTO) 0.2 10^3/uL (0.0-0.3); EOSINOPHILS % (AUTO) 2 % (0-10); HEMATOCRIT 42 % (40-54); HEMOGLOBIN 13.8 g/dL (13.3-17.7); LYMPHOCYTES # (AUTO) 3.2 10^3/uL (1.0-4.0); LYMPHOCYTES % (AUTO) 34 % (12-44); MEAN CORPUSCULAR HEMOGLOBIN 28 pg (25-34); MEAN CORPUSCULAR HGB CONC 33 g/dL (32-36); MEAN CORPUSCULAR VOLUME 86 fL (80-99); MEAN PLATELET VOLUME 9.7 fL (9.0-12.2); MONOCYTES # (AUTO) 1.1 10^3/uL (0.0-1.0); MONOCYTES % (AUTO) 11 % (0-12); NEUTROPHILS # (AUTO) 4.9 10^3/uL (1.8-7.8); NEUTROPHILS % (AUTO) 51 % (42-75); PLATELET COUNT 241 10^3/uL (130-400); WHITE BLOOD COUNT 9.6 10^3/uL (4.3-11.0)
[2023-03-31 00:06] LABS: CALCIUM 8.9 MG/DL (8.5-10.1); CREATININE SERUM 0.92 MG/DL (0.60-1.30); POTASSIUM 3.8 MMOL/L (3.6-5.0)
[2023-03-31] MEDS ORDERED: PRD50T PO (00:18)
[2023-03-31 00:32] VITALS: BP 143/81
--- NOTE | 2023-03-31 08:52 | Diagnostic Imaging Report ---
EXAMINATION: Portable erect AP chest at 2327 hours. INDICATION: Dyspnea, wheezing. COMPARISON: 04/02/2020. FINDINGS: The heart size is stable when compared to the prior exam. The lungs are clear. There is no evidence for failure, pneumonia, or pleural effusion. The mediastinum is not widened. The osseous structures are intact. IMPRESSION: There is no evidence for active disease. When compared to the prior exam, there has been no significant change. Dictated by: Dictated on workstation # [id number]
== END 2023-03-31 00:32 | disposition home or self-care (01) ==
LOC: EDUNIT# 23:14 → ER FS 23:16
DX: J44.9 Chronic obstructive pulmonary disease, unspecified (principal); Z99.81 Dependence on supplemental oxygen; Z20.822 Contact with and (suspected) exposure to COVID-19
CPT/HCPCS: 36415; 71045; 80048; 85025; 87636

== ENCOUNTER 2023-04-18 22:55 | Emergency (ER) | payer MEDICAID ==
[~2023-04-18] VITALS: Ht 69 cm; Wt 108.0 kg
[~2023-04-18 22:55] MED LIST changes: +PRD50T PO
--- NOTE | 2023-04-18 23:06 | ED Cardiac General ---
History of Present Illness General Stated Complaint: RAPID HEART RATE Source: patient, EMS (LITZY ANDRADE DO) History of Present Illness Date Seen by Provider: Apr 18, 2023 Time Seen by Provider: 22:57 Initial Comments PT ARRIVES VIA [facility] EMS FROM [facility] C/O SUDDEN ONSET OF DIZZINESS AND RAPID HEART BEAT AND SHORTNESS OF BREATH AT 2130 HE HAD BEEN SITTING IN A CHAIR AND STOOD UP TO GET A DRINK AND BEGAN HAVING THESE SYMPTOMS NO CHEST PAIN NO SWEATS NO NAUSEA/VOMITING NO SYNCOPE NO SWELLING IN LEGS/FEET EMS FOUND PT TO BE IN ATRIAL FIB/FLUTTER WITH HR IN 150'S EMS GAVE CARDIZEM 20 MG IV NO HISTORY OF HEART PROBLEMS PT HAS HTN AND COPD PT HAS HISTORY OF CIGARETTE SMOKING, ALCOHOL AND POLYSUBSTANCE ABUSE--STATES HE QUIT IT ALL IN 1988 PCP: MAGNO LUONG AT [facility] (LITZY ANDRADE DO) Allergies and Home Medications Allergies Coded Allergies: No Known Drug Allergies (Unverified , 03/30/23) Patient Home Medication List Home Medication List Reviewed: Yes (JONATHAN VALE MD) Apixaban (Eliquis) 5 Mg Tablet, 5 MG PO BID Prescribed by: JONATHAN ZAPATA on 04/19/23 1610 Atorvastatin Calcium (Atorvastatin Calcium) 10 Mg Tablet, 10 MG PO DAILY, (Reported) Entered as Reported by: RUSSEL RAMIREZ on 12/17/21 1013 Carbamazepine (Carbamazepine) 200 Mg Tablet, 200 MG PO DAILY, (Reported) Entered as Reported by: RUSSEL RAMIREZ on 12/17/21 1013 Cetirizine HCl (Cetirizine HCl) 10 Mg Tablet, 10 MG PO DAILY, (Reported) Entered as Reported by: ROWAN CARLISLE on 12/16/219 Diltiazem HCl (Cardizem Cd) 180 Mg Cap.er.24h, 180 MG PO DAILY Prescribed by: JONATHAN ZAPATA on 04/19/23 1610 Fluticasone/Salmeterol (Fluticasone-Salmeterol 113-14) 113 Mcg-14 Mcg/Actuation Aer.pow.ba, 2 PUFF INH DAILY, (Reported) Entered as Reported by: RUSSEL RAMIREZ on 12/17/21 1013 Ipratropium/Albuterol Sulfate (Iprat-Albut 0.5-3(2.5) mg/3 ml) 0.5 Mg-3 Mg (2.5 Mg Base)/3 Ml Ampul.neb, 3 ML IH Q6H PRN for SHORTNESS OF BREATH, (Reported) Entered as Reported by: ROWAN CARLISLE on 12/16/212123 Lisinopril (Lisinopril) 20 Mg Tablet, 20 MG PO DAILY Prescribed by: YURIDIA CARREON on 12/18/21 1239 Meloxicam (Meloxicam) 15 Mg Tablet, 15 MG PO DAILY, (Reported) Entered as Reported by: ROWAN CARLISLE on 12/16/212118 Multivit-Min/FA/Lycopene/Lut (Centrum Silver Tablet) 0.4 Mg-300 Mcg-250 Mcg Tablet, 1 EACH PO DAILY, (Reported) Entered as Reported by: RUSSEL RAMIREZ on 12/17/21 1013 Prednisone (Prednisone) 50 Mg Tab, 50 MG PO DAILY Prescribed by: CESAR BAGLEY MD on 03/31/23 0018 Zolpidem Tartrate (Ambien) 10 Mg Tablet, 10 MG PO HS, (Reported) Entered as Reported by: ROWAN CARLISLE on 12/16/212118 Review of Systems Review of Systems Constitutional: no symptoms reported; No diaphoresis; dizziness EENTM: No Symptoms Reported Respiratory: See HPI, Shortness of Air Cardiovascular: See HPI; Denies Chest Pain; Irregular Heart Rate, Lightheadedness, Palpitations Gastrointestinal: No Symptoms Reported Genitourinary: No Symptoms Reported Musculoskeletal: no symptoms reported Psychiatric/Neurological: See HPI (DIZZINESS) Endocrine: No Symptoms Reported Hematologic/Lymphatic: No Symptoms Reported (RAYMONDLITZY Victorina DO) Past Twseowx-Wqdwjz-Wmcpgc Hx Patient Social History Tobacco Use?: Yes Tobacco type used: Cigarettes Smoking Status: Former Smoker Substance use?: Yes Alcohol Use?: Yes (LITZY ANDRADE DO) Immunizations Up To Date First/Initial COVID19 Vaccinat: 2 shots (LITZY ANDRADE DO) Seasonal Allergies Seasonal Allergies: No (ROB ANDRADEA Victorina ARTEAGA) Past Medical History Surgery/Hospitalization HX: htn, copd, mental health meds, insomnia cant remember Surgeries: Yes Gallbladder Respiratory: Yes COPD Cardiac: Yes Hypertension Neurological: Yes Headaches /Migraines Genitourinary: No Gastrointestinal: No Musculoskeletal: Yes (CHRONIC NECK PAIN ) Endocrine: No HEENT: No Cancer: No Psychosocial: Yes (POLYSUBSTANCE ABUSE) Anxiety, Depression Integumentary: No Blood Disorders: No (CARLOS) (LITZY ANDRADE DO) Family Medical History SOCIAL HISTORY: -PT SMOKED 4-5 PPD, QUIT 1988 -ETOH--DRANK AT LEAST 2 FIFTHS OF VODKA PLUS TEQUILA EVERY DAY--QUIT 1988 -DRUGS--"ANYTHING I COULD GET MY HANDS ON"--METH, CRACK COCAINE, SPEED, "YELLOW JACKETS" --"EVERYTHING", INCLUDING IV DRUG USE--QUIT 1988 (LITZY ANDRADE DO) Physical Exam Vital Signs Vital Signs - First Documented 04/18/23 22:55 Temp 36.9 Pulse 150 Resp 18 B/P (MAP) 186/129 (148) Pulse Ox 93 O2 Delivery Room Air (JONATHAN VALE MD) Vital Signs Capillary Refill : (LITZY ANDRADE DO) Height, Weight, BMI Height: '" Weight: lbs. oz. 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 as Tested Skin: Normal Color, Warm/Dry (LITZY ANDRADE DO) Progress/Results/Core Measures Results/Orders Lab Results Laboratory Tests Test 04/18/23 23:00 04/18/23 23:07 04/18/23 23:19 04/19/23 04:55 Range/Units White Blood Count 8.3 4.3-11.0 10^3/uL Red Blood Count 5.13 4.30-5.52 10^6/uL Hemoglobin 14.8 13.3-17.7 g/dL Hematocrit 44 40-54 % Mean Corpuscular Volume 85 80-99 fL Mean Corpuscular Hemoglobin 29 25-34 pg Mean Corpuscular Hemoglobin Concent 34 32-36 g/dL Red Cell Distribution Width 12.6 10.0-14.5 % Platelet Count 272 130-400 10^3/uL Mean Platelet Volume 9.5 9.0-12.2 fL Immature Granulocyte % (Auto) 0 % Neutrophils (%) (Auto) 68 42-75 % Lymphocytes (%) (Auto) 18 12-44 % Monocytes (%) (Auto) 11 0-12 % Eosinophils (%) (Auto) 2 0-10 % Basophils (%) (Auto) 1 0-10 % Neutrophils # (Auto) 5.7 1.8-7.8 10^3/uL Lymphocytes # (Auto) 1.5 1.0-4.0 10^3/uL Monocytes # (Auto) 0.9 0.0-1.0 10^3/uL Eosinophils # (Auto) 0.1 0.0-0.3 10^3/uL Basophils # (Auto) 0.1 0.0-0.1 10^3/uL Immature Granulocyte # (Auto) 0.0 0.0-0.1 10^3/uL Erythrocyte Sedimentation Rate 6 0-30 MM/HR Prothrombin Time 13.4 12.2-14.7 SEC INR Comment 1.0 0.8-1.4 Activated Partial Thromboplast Time 29 24-35 SEC D-Dimer 0.19 0.00-0.49 UG/ML Sodium Level 141 135-145 MMOL/L Potassium Level 3.8 3.6-5.0 MMOL/L Chloride Level 108 H 98-107 MMOL/L Carbon Dioxide Level 21 21-32 MMOL/L Anion Gap 12 5-14 MMOL/L Blood Urea Nitrogen 9 7-18 MG/DL Creatinine 0.92 0.60-1.30 MG/DL Estimat Glomerular Filtration Rate 92 BUN/Creatinine Ratio 10 Glucose Level 109 H 70-105 MG/DL Calcium Level 9.5 8.5-10.1 MG/DL Corrected Calcium 9.2 8.5-10.1 MG/DL Phosphorus Level 2.5 2.3-4.7 MG/DL Magnesium Level 2.2 1.6-2.4 MG/DL Total Bilirubin 0.4 0.1-1.0 MG/DL Aspartate Amino Transf (AST/SGOT) 18 5-34 U/L Alanine Aminotransferase (ALT/SGPT) 28 0-55 U/L Alkaline Phosphatase 72 40-136 U/L Total Creatine Kinase 65 30-200 U/L Creatine Kinase MB 0.5 <6.6 NG/ML Myoglobin 35.4 10.0-92.0 NG/ML Troponin I < 0.028 < 0.028 <0.028 NG/ML C-Reactive Protein High Sensitivity 0.11 0.00-0.50 MG/DL B-Type Natriuretic Peptide 40.3 <100.0 PG/ML Total Protein 7.5 6.4-8.2 GM/DL Albumin 4.4 3.2-4.5 GM/DL TSH [place] Testing 0.57 0.35-4.94 UIU/ML Serum Alcohol < 10 <10 MG/DL Urine Color YELLOW Urine Clarity CLEAR Urine pH 7.5 5-9 Urine Specific [place] 1.010 L 1.016-1.022 Urine Protein NEGATIVE NEGATIVE Urine Glucose (UA) NEGATIVE NEGATIVE Urine Ketones NEGATIVE NEGATIVE Urine Nitrite NEGATIVE NEGATIVE Urine Bilirubin NEGATIVE NEGATIVE Urine Urobilinogen 0.2 < = 1.0 MG/DL Urine Leukocyte Esterase NEGATIVE NEGATIVE Urine RBC (Auto) NEGATIVE NEGATIVE Urine RBC NEG /HPF Urine WBC NEG /HPF Urine Crystals NONE /LPF Urine Bacteria NEG /HPF Urine Casts NONE /LPF Urine Mucus NEGATIVE /LPF Urine Culture Indicated NO Urine Opiates Screen NEGATIVE NEGATIVE Urine Oxycodone Screen NEGATIVE NEGATIVE Urine Methadone Screen NEGATIVE NEGATIVE Urine Propoxyphene Screen NEGATIVE NEGATIVE Urine Barbiturates Screen NEGATIVE NEGATIVE Ur Tricyclic Antidepressants Screen NEGATIVE NEGATIVE Urine Phencyclidine Screen NEGATIVE NEGATIVE Urine Amphetamines Screen NEGATIVE NEGATIVE Urine Methamphetamines Screen NEGATIVE NEGATIVE Urine Benzodiazepines Screen POSITIVE H NEGATIVE Urine Cocaine Screen NEGATIVE NEGATIVE Urine Cannabinoids Screen NEGATIVE NEGATIVE Influenza Type A (RT-PCR) Not Detected Not Detecte Influenza Type B (RT-PCR) Not Detected Not Detecte SARS-CoV-2 RNA (RT-PCR) Not Detected Not Detecte (JONATHAN VALE MD) My Orders Orders - JONATHAN VALE MD Acetaminophen Tablet (Acetaminophen Ta (04/19/23 09:15) Diltiazem Er 24 Hr Capsule (Diltiazem Er (04/19/23 14:30) Heart Healthy (04/19/23 Lunch) Enoxaparin Injection (04/19/23 14:30) (JONATHAN VALE MD) Medications Given in ED Current Medications Medications Dose Ordered Sig/Ghanshyam Route Start Time Stop Time Status Last Admin Dose Admin Acetaminophen 1,000 mg ONCE ONCE PO 04/19/23 09:15 04/19/23 09:16 DC 04/19/23 09:11 1,000 MG Diltiazem HCl 180 mg ONCE ONCE PO 04/19/23 14:30 04/19/23 14:31 DC 04/19/23 14:45 180 MG Enoxaparin Sodium 120 mg ONCE ONCE SC 04/19/23 14:30 04/19/23 14:31 DC 04/19/23 15:48 120 MG (JONATHAN VALE MD) Vital Signs/I&O 04/18/23 04/18/23 04/18/23 04/19/23 22:55 23:11 23:11 17:15 Temp 36.9 Pulse 150 146 146 81 Resp 18 16 B/P (MAP) 186/129 (148) 173/114 173/114 141/90 Pulse Ox 93 96 O2 Delivery Room Air 04/19/23 00:00 Intake Total 500 ml Balance 500 ml (JONATHAN VALE MD) Progress Progress Note : Progress Note VITALS ON ARRIVAL: TEMP 36.9=98.4, HR 150, RR 18, BP 186/129, O2 SAT 93% ON ROOM AIR GIVEN: -ASPIRIN -LOVENOX -CARDIZEM BOLUS AND DRIP -TOPROL XL LABS: -CBC NORMAL -CMP NORMAL -MG NORMAL -TROPONIN NEGATIVE X 2 -BNP NORMAL -TSH NORMAL -SED RATE NORMAL -CRP NORMAL -PT/PTT/INR NORMAL -D-DIMER NEGATIVE -UA CLEAR -ETOH NEGATIVE -UDS + BENZO'S -COVID/FLU NEGATIVE EKG WITH A-FLUTTER MONITOR WITH A-FIB AND A-FLUTTER REPEAT EKG WITH SLOWER RATE, STILL IN A-FLUTTER CXR UNREMARKABLE, PENDING RADIOLOGIST REVIEW 0120--C/O NECK PAIN--CHRONIC PROBLEM, TYLENOL ORDERED 0250--C/O "MIGRAINE"--STATES THIS IS CHRONIC PROBLEM DUE TO CHRONIC NECK PAIN AND IS NO DIFFERENT IN ANY WAY FROM HIS NORMAL HEADACHES, FENTANYL ORDERED. HEADACHE AND NECK PAIN MUCH IMPROVED WITH FENTANYL 0600--CARE TURNED OVER TO DR. VALE AT SHIFT CHANGE. TRANSFER PENDING AT THIS TIME. VITALS ARE STABLE, WITH HR IN 70'S--STILL IN A-FLUTTER, BP 120'S/80'S, O2 SATS UPPER 90'S ON 2L/NC. PT IS SYMPTOM-FREE AT THIS TIME. (LITZY ANDRADE DO) Progress Note #1: Time: 13:51 Progress Note Patient has been completely stable since I assumed care this morning with pending transfer to [facility]. [facility] does not have a bed assignment. The transfer center states they are on admission diversion, so patient is essentially on a waiting list. Patient has been stable with a consistent heart rate in the 70s and 80s on Cardizem at 5 mg/h. I have discussed with him the possibility of converting to oral therapy and providing prescriptions for oral Cardizem and anticoagulation. He would like to explore that option. I requested consultation with the machine shop apprentice on-call, Dr. Mcnamara. He declines to discuss the case and defers to the current ER attending's discretion. He would not provide me with any advice or discussion about the case. Progress Note #2: Time: 16:13 Progress Note Mr. Greenberg remained in stable condition throughout his ER stay to this point. Heart rate has been steady in the 70s and 80s the majority of this time. He does, however, remain in atrial flutter on the nurse monitoring. He is asymptomatic. Blood pressure has improved significantly. Cardiology services and consult are not available at this facility today and will not be until [address] ANDRADE had arranged for transfer to [facility]. Transfer was excepted but no bed assignment was available as [facility] was on admission diversion. I discussed the case with Dr. Stanford, hospitalist on duty. It seemed reasonable after this discussion to offer a conversion to oral medications with plan to discharge home with close follow-up since he had remained stable. Risks and benefits of this plan were discussed with the patient. He elected an outpatient treatment plan after conversion to oral medication. Cardizem CD 180 mg was administered. The Cardizem drip was then turned off 30 minutes later. He was monitored for more than 30 minutes after discontinuing Cardizem drip. He presently remains in atrial flutter at a controlled rate of 82 bpm. Blood pressure is presently 137/108. Patient feels comfortable returning home. 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 I have discussed this plan with Dr. Hidalgo, outpatient provider on-call for [facility], and that she will help ensure that his treatment is facilitated and followed through. See discharge instructions for further discussion. [facility] did eventually call back with a bed assignment. However, this was after the outpatient plan was already set in motion and Mr. Greenberg received the oral Cardizem. He did not want to pursue admission at that point and requested discharge home, acknowledging the risks of returning home without continued monitoring, consultation with a machine shop apprentice, or further cardiac testing. I did inquire about contraindications for anticoagulation and patient did not report any contraindications that he could identify. (JONATHAN VALE MD) Initial ECG Impression Date: Apr 18, 2023 Initial ECG Impression Time: 23:00 Initial ECG Rate: 92 Initial ECG Rhythm: A Fib/Flutter (AFLUTTER) Initial ECG Intervals HI -N/A QRS 101 QT/QTC 382/432 Initial ECG Impression: Nonspecific Changes Initial ECG Comparisson: No Previous ECG Available Comment INTERPRETED BY ME EKG : EKG Time: 00:13 Rate: 77 Rhythm: A Fib/Flutter (AFLUTTER) Intervals HI N/A QRS 90 QT/QTC 378/409 (LITZY ANDRADE DO) Diagnostic Imaging Comments CXR--NO ACUTE PROCESS, PENDING RADIOLOGIST REVIEW Reviewed: Reviewed by Me (LITZY ANDRADE DO) Comments NAME: MAVIS GREENBERG MED REC#: [id number] PT STATUS: REG ER : 1955 PHYSICIAN: LITZY ANDRADE DO ADMIT DATE: 04/18/23/ER Signed Date of Exam:04/18/23 CHEST 1 VIEW, AP/PA ONLY Indication: Shortness of breath Portable chest 11:30 PM Heart size and pulmonary vascularity are normal. Lungs are clear. There are no effusions or pneumothoraces. 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 Decision time for Depature: 16:04 (JONATHAN VALE MD) Referrals: RAMESH LUONG APRN (PCP/Family) Primary Care Physician Patient Instructions: Atrial flutter, Going Home on Blood Thinners Add. Discharge Instructions: Please pickle water pump operator your medications immediately when the pharmacy opens tomorrow morning and take the first doses promptly. You will take the Eliquis twice daily and the Cardizem CD (long-acting diltiazem) in the morning. It is very important that you follow-up promptly in the clinic. Please schedule an appointment as soon as possible, preferably for a time this week. Be sure to inform the staff that this is an urgent follow-up from an ER visit. You need a referral to a machine shop apprentice promptly as well. Please ask your primary care provider to help you establish that referral. You are going home on a blood thinner medication. Please stop this medication promptly and seek help in an emergency room if you have any unusual bleeding of any kind or if you have any significant trauma such as a head injury. Return to the emergency room if you have any worsening of symptoms including a return of very rapid heart rate. Do not take meloxicam or any NSAID medications such as ibuprofen or naproxen while you are on Eliquis. Otherwise continue all of your usual medications as previously directed. Scripts Apixaban (Eliquis) 5 Mg Tablet 5 MG PO BID, #60 TAB Prov: JONATHAN VALE MD 04/19/23 Diltiazem HCl (Cardizem Cd) 180 Mg Cap.er.24h 180 MG PO DAILY, #30 CAP Prov: JONATHAN VALE MD 04/19/23 Copy Copies To 1: [facility]/LITZY HOLT DO Apr 18, 2023 23:06 JONATHAN VALE MD Apr 19, 2023 12:55
[2023-04-18] MEDS ORDERED: dilTIAZem INJ 25 MG/5 ML VIAL ONE (23:07)
[2023-04-18 23:09] LABS: BASOPHILS # (AUTO) 0.1 10^3/uL (0.0-0.1); BASOPHILS % (AUTO) 1 % (0-10); EOSINOPHILS # (AUTO) 0.1 10^3/uL (0.0-0.3); EOSINOPHILS % (AUTO) 2 % (0-10); HEMATOCRIT 44 % (40-54); HEMOGLOBIN 14.8 g/dL (13.3-17.7); LYMPHOCYTES # (AUTO) 1.5 10^3/uL (1.0-4.0); LYMPHOCYTES % (AUTO) 18 % (12-44); MEAN CORPUSCULAR HEMOGLOBIN 29 pg (25-34); MEAN CORPUSCULAR HGB CONC 34 g/dL (32-36); MEAN CORPUSCULAR VOLUME 85 fL (80-99); MEAN PLATELET VOLUME 9.5 fL (9.0-12.2); MONOCYTES # (AUTO) 0.9 10^3/uL (0.0-1.0); MONOCYTES % (AUTO) 11 % (0-12); NEUTROPHILS # (AUTO) 5.7 10^3/uL (1.8-7.8); NEUTROPHILS % (AUTO) 68 % (42-75); PLATELET COUNT 272 10^3/uL (130-400); WHITE BLOOD COUNT 8.3 10^3/uL (4.3-11.0)
[2023-04-18] MEDS ORDERED: ASPIRIN 81 MG CHEWABLE TABLET PO ONE (23:15)
[2023-04-18] MEDS ORDERED: dilTIAZem INJ 25 MG/5 ML VIAL IVP ONE (23:15)
[2023-04-18] MEDS ORDERED: dilTIAZem DRIP PRE-MIX 125 ML IV SCH (23:15)
[2023-04-18] MEDS ORDERED: ENOXAPARIN 120 MG/0.8 ML SYRINGE SQ ONE (23:15)
[2023-04-18 23:21] LABS: ALBUMIN 4.4 GM/DL (3.2-4.5); CHLORIDE 108 MMOL/L (98-107); POTASSIUM 3.8 MMOL/L (3.6-5.0); SODIUM 141 MMOL/L (135-145)
[2023-04-18 23:21] LABS: BACTERIA,URINE NEG /HPF; BILIRUBIN,URINE NEGATIVE (NEGATIVE); CLARITY,URINE CLEAR; COLOR,URINE YELLOW; GLUCOSE, URINE (UA) NEGATIVE (NEGATIVE); KETONES,URINE NEGATIVE (NEGATIVE); LEUKOCYTE ESTERASE ,URINE NEGATIVE (NEGATIVE); NITRITE,URINE NEGATIVE (NEGATIVE); PH,URINE 7.5 (5-9); PROTEIN,URINE NEGATIVE (NEGATIVE); RBC,URINE NEG /HPF; WBC,URINE NEG /HPF
[2023-04-18 23:22] LABS: CALCIUM 9.5 MG/DL (8.5-10.1)
[2023-04-18 23:24] LABS: ERYTHROCYTE SEDIMENTATION RATE 6 MM/HR (0-30); GLUCOSE 109 MG/DL (70-105); TOTAL PROTEIN 7.5 GM/DL (6.4-8.2)
[2023-04-18 23:25] LABS: BILIRUBIN,TOTAL 0.4 MG/DL (0.1-1.0); CARBON DIOXIDE 21 MMOL/L (21-32)
[2023-04-18 23:27] LABS: ALKALINE PHOSPHATASE 72 U/L (40-136); PHOSPHORUS 2.5 MG/DL (2.3-4.7)
[2023-04-18 23:28] LABS: CREATININE SERUM 0.92 MG/DL (0.60-1.30); GFR ESTIMATED 92
[2023-04-18 23:29] LABS: BUN/CREATININE RATIO 10
[2023-04-18 23:30] LABS: ALANINE AMINOTRANSFERASE 28 U/L (0-55); MAGNESIUM 2.2 MG/DL (1.6-2.4)
[2023-04-18 23:31] LABS: CREATINE KINASE 65 U/L (30-200)
[2023-04-18 23:32] LABS: AMPHETAMINE SCREEN, URINE NEGATIVE (NEGATIVE); BARBITURATE SCREEN URINE NEGATIVE (NEGATIVE); CANNABINOID SCREEN, URINE NEGATIVE (NEGATIVE); COCAINE SCREEN URINE NEGATIVE (NEGATIVE); METHADONE STAT NEGATIVE (NEGATIVE); OPIATE SCREEN URINE NEGATIVE (NEGATIVE); OXYCODONE STAT NEGATIVE (NEGATIVE); PROPOXYPHENE STAT NEGATIVE (NEGATIVE); TRICYCLIC ANTIDEPRESSANTS SCRE NEGATIVE (NEGATIVE)
[2023-04-18 23:33] LABS: FIBRIN DEGRADATION PRODUCTS 0.19 UG/ML (0.00-0.49)
--- NOTE | 2023-04-18 23:35 | Diagnostic Imaging Report ---
Indication: Shortness of breath Portable chest 11:30 PM Heart size and pulmonary vascularity are normal. Lungs are clear. There are no effusions or pneumothoraces. IMPRESSION: No acute abnormalities in the chest Dictated by: Dictated on workstation # [id number]
[2023-04-18 23:38] LABS: CREATINE KINASE MB 0.5 NG/ML (<6.6)
[2023-04-18 23:51] LABS: TSH (THYROID ANALYZER) 0.57 UIU/ML (0.35-4.94)
[2023-04-19 00:09] LABS: PROTHROMBIN TIME PATIENT 13.4 SEC (12.2-14.7)
[2023-04-19] MEDS ORDERED: ACETAMINOPHEN 500 MG TABLET PO ONE ×2 (01:30→09:15)
[2023-04-19] MEDS ORDERED: fentaNYL INJECTION 100 MCG/2 ML VIAL IVP ONE (03:00)
[2023-04-19] MEDS ORDERED: dilTIAZem ER 180 MG CAPSULE PO ONE (14:30)
[2023-04-19] MEDS ORDERED: ENOXAPARIN 60 MG/0.6 ML SYRINGE SC ONE (14:30)
[2023-04-19] MEDS ORDERED: APIX5TAB PO (16:10)
[2023-04-19] MEDS ORDERED: DILT180C67 PO (16:10)
[2023-04-19 17:15] VITALS: BP 141/90
[2023-04-20] MEDS ORDERED: ATOR20TA66 PO (15:57)
[2023-04-20] MEDS ORDERED: LISI40TA9 PO (15:57)
[2023-04-20] MEDS ORDERED: ACET-2840 PO (15:57)
[2023-04-20] MEDS ORDERED: DILT180C67 PO (15:57)
[2023-04-20] MEDS ORDERED: TRZ50T PO (15:57)
[2023-04-20] MEDS ORDERED: ALBU18HF2 INH (15:57)
[2023-04-20] MEDS ORDERED: APIX5TAB PO (15:57)
[2023-04-20] MEDS ORDERED: DIAZ5TAB49 PO (15:57)
== END 2023-04-19 17:15 | disposition home or self-care (01) ==
LOC: EDUNIT# 22:55 → ER 22:57
DX: I48.91 Unspecified atrial fibrillation (principal); I48.92 Unspecified atrial flutter; I10 Essential (primary) hypertension; Z87.891 Personal history of nicotine dependence
CPT/HCPCS: 71045; 80053; 80306; 81000; 82550; 82553; 83735; 83874; 83880; 84100; 84443; 84484 ×2; 85025; 85379; 85610; 85652; 85730; 86141; 87636; 93005; 93041; 99284; G0480; 36415; 80320

== ENCOUNTER 2023-04-20 10:29 | Inpatient (IN) | payer MEDICAID ==
[~2023-04-20] VITALS: Ht 175.3 cm; Wt 96.6 kg
[~2023-04-20 10:29] MED LIST changes: +APIX5TAB PO; +DILT180C67 PO
--- NOTE | 2023-04-20 10:53 | ED Cardiac General ---
History of Present Illness General Chief Complaint: Cardiac/General Problems Stated Complaint: SOB Nursing Triage Note: Patient has presented to ER with cc of palpitations that started about 0100. Source: patient, EMS, old records Exam Limitations: no limitations History of Present Illness Date Seen by Provider: Apr 20, 2023 Time Seen by Provider: 10:29 Initial Comments 67-year-old male with past medical history of hypertension, hyperlipidemia, COPD, and new a flutter coming in via EMS from home due to a flutter with rate in the 160s. The patient was seen in the ER on Thursday, diagnosed with a flutter at that time. He was given Lovenox and started on a Cardizem drip. They attempted transfer, were unable to do that him more than 12 hours based on bed availability at outside facilities. He was discharged home on Eliquis and extended release Cardizem. He took those medications this morning. He has been anticoagulated since Thursday night which is less than 48 hours. Around 1:30 AM this morning, he started feeling chest pain and like his heart was racing. Called EMS when he started feeling short of breath and having some chest discomfort this morning. On their arrival, he was in a flutter with a rate of 160s. They started an IV and gave him 20 mg of IV Cardizem as a bolus which brought him down to the 80s but still in a flutter. Patient states he feels better now. Allergies and Home Medications Allergies Coded Allergies: No Known Drug Allergies (Unverified , 03/30/23) Patient Home Medication List Home Medication List Reviewed: Yes Apixaban (Eliquis) 5 Mg Tablet, 5 MG PO BID Prescribed by: JONATHAN ZAPATA on 04/19/23 1610 Atorvastatin Calcium (Atorvastatin Calcium) 10 Mg Tablet, 10 MG PO DAILY, (Reported) Entered as Reported by: RUSSEL RAMIREZ on 12/17/21 1013 Carbamazepine (Carbamazepine) 200 Mg Tablet, 200 MG PO DAILY, (Reported) Entered as Reported by: RUSSEL RAMIREZ on 12/17/21 1013 Cetirizine HCl (Cetirizine HCl) 10 Mg Tablet, 10 MG PO DAILY, (Reported) Entered as Reported by: ROWAN CARLISLE on 12/16/212118 Diltiazem HCl (Cardizem Cd) 180 Mg Cap.er.24h, 180 MG PO DAILY Prescribed by: JONATHAN ZAPATA on 04/19/23 1610 Fluticasone/Salmeterol (Fluticasone-Salmeterol 113-14) 113 Mcg-14 Mcg/Actuation Aer.pow.ba, 2 PUFF INH DAILY, (Reported) Entered as Reported by: RUSSEL RAMIREZ on 12/17/21 1013 Ipratropium/Albuterol Sulfate (Iprat-Albut 0.5-3(2.5) mg/3 ml) 0.5 Mg-3 Mg (2.5 Mg Base)/3 Ml Ampul.neb, 3 ML IH Q6H PRN for SHORTNESS OF BREATH, (Reported) Entered as Reported by: ROWAN CARLISLE on 12/16/212123 Lisinopril (Lisinopril) 20 Mg Tablet, 20 MG PO DAILY Prescribed by: YURIDIA CARREON on 12/18/21 1239 Meloxicam (Meloxicam) 15 Mg Tablet, 15 MG PO DAILY, (Reported) Entered as Reported by: ROWAN CARLISLE on 12/16/212118 Multivit-Min/FA/Lycopene/Lut (Centrum Silver Tablet) 0.4 Mg-300 Mcg-250 Mcg Tablet, 1 EACH PO DAILY, (Reported) Entered as Reported by: RUSSEL RAMIREZ on 12/17/21 1013 Prednisone (Prednisone) 50 Mg Tab, 50 MG PO DAILY Prescribed by: CESAR BAGLEY MD on 03/31/23 0018 Zolpidem Tartrate (Ambien) 10 Mg Tablet, 10 MG PO HS, (Reported) Entered as Reported by: ROWAN CARLISLE on 12/16/212118 Review of Systems Review of Systems Constitutional: No fever EENTM: No Symptoms Reported Respiratory: No Symptoms Reported Cardiovascular: See HPI Gastrointestinal: No Symptoms Reported Genitourinary: No Symptoms Reported Musculoskeletal: no symptoms reported Skin: no symptoms reported Psychiatric/Neurological: No Symptoms Reported Endocrine: No Symptoms Reported Hematologic/Lymphatic: No Symptoms Reported All Other Systems Reviewed Negative Unless Noted: Yes Past Ngxtifj-Rskbol-Bivwhi Hx Patient Social History Tobacco Use?: No Substance use?: No Alcohol Use?: No Immunizations Up To Date First/Initial COVID19 Vaccinat: 2 shots Second COVID19 Vaccination Naman: 2 shots Third COVID19 Vaccination Date: 2 shots Seasonal Allergies Seasonal Allergies: No Past Medical History Surgery/Hospitalization HX: htn, copd, mental health meds, insomnia cant remember Surgeries: Yes Gallbladder Respiratory: Yes COPD Cardiac: Yes Hypertension Neurological: Yes Headaches /Migraines Genitourinary: No Gastrointestinal: No Musculoskeletal: Yes (CHRONIC NECK PAIN ) Endocrine: No HEENT: No Cancer: No Psychosocial: Yes (POLYSUBSTANCE ABUSE) Anxiety, Depression Integumentary: No Blood Disorders: No (CARLOS) Family Medical History SOCIAL HISTORY: -PT SMOKED 4-5 PPD, QUIT 1988 -ETOH--DRANK AT LEAST 2 FIFTHS OF VODKA PLUS TEQUILA EVERY DAY--QUIT 1988 -DRUGS--"ANYTHING I COULD GET MY HANDS ON"--METH, CRACK COCAINE, SPEED, "YELLOW JACKETS" --"EVERYTHING", INCLUDING IV DRUG USE--QUIT 1988 Physical Exam Vital Signs Vital Signs - First Documented 04/20/23 10:45 Temp 37.3 Pulse 100 Resp 16 B/P (MAP) 113/83 (93) Pulse Ox 16 O2 Delivery Room Air Capillary Refill : Height, Weight, BMI Height: '" Weight: lbs. oz. kg; 34.00 BMI Method: General Appearance: No Apparent Distress, WD/WN HEENT: PERRL/EOMI, Normal ENT Inspection, Pharynx Normal Neck: Full Range of Motion, Normal Inspection, Non Tender, Supple Respiratory: Chest Non Tender, Lungs Clear, Normal Breath Sounds, No Accessory Muscle Use, No Respiratory Distress Cardiovascular: Regular Rate, Rhythm, Normal Peripheral Pulses Gastrointestinal: Normal Bowel Sounds, Non Tender, Soft; No Distended, No Guarding Extremity: Normal Capillary Refill, Normal Inspection, Normal Range of Motion, Non Tender, No Calf Tenderness, No Pedal Edema Neurologic/Psychiatric: Alert, No Motor/Sensory Deficits, Normal Mood/Affect Skin: Normal Color, Warm/Dry Progress/Results/Core Measures Results/Orders Lab Results Laboratory Tests Test 04/20/23 10:51 Range/Units White Blood Count 10.8 4.3-11.0 10^3/uL Red Blood Count 5.18 4.30-5.52 10^6/uL Hemoglobin 14.8 13.3-17.7 g/dL Hematocrit 44 40-54 % Mean Corpuscular Volume 85 80-99 fL Mean Corpuscular Hemoglobin 29 25-34 pg Mean Corpuscular Hemoglobin Concent 34 32-36 g/dL Red Cell Distribution Width 13.0 10.0-14.5 % Platelet Count 316 130-400 10^3/uL Mean Platelet Volume 9.5 9.0-12.2 fL Immature Granulocyte % (Auto) 0 % Neutrophils (%) (Auto) 73 42-75 % Lymphocytes (%) (Auto) 15 12-44 % Monocytes (%) (Auto) 10 0-12 % Eosinophils (%) (Auto) 1 0-10 % Basophils (%) (Auto) 1 0-10 % Neutrophils # (Auto) 7.8 1.8-7.8 10^3/uL Lymphocytes # (Auto) 1.7 1.0-4.0 10^3/uL Monocytes # (Auto) 1.0 0.0-1.0 10^3/uL Eosinophils # (Auto) 0.1 0.0-0.3 10^3/uL Basophils # (Auto) 0.1 0.0-0.1 10^3/uL Immature Granulocyte # (Auto) 0.0 0.0-0.1 10^3/uL Percent Immature Platelet Fraction 2.0 0.0-7.6 % Prothrombin Time 13.2 12.2-14.7 SEC INR Comment 1.0 0.8-1.4 Activated Partial Thromboplast Time 32 24-35 SEC Sodium Level 137 135-145 MMOL/L Potassium Level 3.6 3.6-5.0 MMOL/L Chloride Level 104 98-107 MMOL/L Carbon Dioxide Level 20 L 21-32 MMOL/L Anion Gap 13 5-14 MMOL/L Blood Urea Nitrogen 13 7-18 MG/DL Creatinine 1.09 0.60-1.30 MG/DL Estimat Glomerular Filtration Rate 75 BUN/Creatinine Ratio 12 Glucose Level 109 H 70-105 MG/DL Calcium Level 9.4 8.5-10.1 MG/DL Corrected Calcium 9.3 8.5-10.1 MG/DL Magnesium Level 2.2 1.6-2.4 MG/DL Total Bilirubin 0.5 0.1-1.0 MG/DL Aspartate Amino Transf (AST/SGOT) 19 5-34 U/L Alanine Aminotransferase (ALT/SGPT) 33 0-55 U/L Alkaline Phosphatase 82 40-136 U/L Troponin I < 0.30 <0.30 NG/ML Pro-B-Type Natriuretic Peptide 2438.0 H <125.0 PG/ML Total Protein 6.9 6.4-8.2 GM/DL Albumin 4.1 3.2-4.5 GM/DL Lipase 14 8-78 U/L My Orders Orders - DHAVAL GOMEZ MD Cbc And Automated Diff (04/20/23 10:45) Magnesium (04/20/23 10:45) Chest 1 View Ap/Pa Only (04/20/23 10:45) Ekg Tracing (04/20/23 10:45) Comprehensive Metabolic Panel (04/20/23 10:45) Protime With Inr (04/20/23 10:45) Partial Thromboplastin Time (04/20/23 10:45) O2 (04/20/23 10:45) Monitor-Rhythm Ecg Trace Only (04/20/23 10:45) Ed Iv/Invasive Line Start (04/20/23 10:45) Lipase (04/20/23 10:45) Troponin I Fs (04/20/23 10:45) Probnp Fs (04/20/23 10:45) Diltiazem Injection (Diltiazem Injection (04/20/23 11:00) Ns (Ivpb) 100 Ml (S... W/Diltiazem Iv Fo (04/20/23 10:56) Diltiazem Drip Pre-Mix (Diltiazem Drip P (04/20/23 11:02) Potassium Chloride (Tablet) (Potassium C (04/20/23 12:00) Medications Given in ED Current Medications Medications Dose Ordered Sig/Ghanshyam Route Start Time Stop Time Status Last Admin Dose Admin Diltiazem HCl 20 mg ONCE ONCE IVP 04/20/23 11:00 04/20/23 11:01 DC 04/20/23 11:04 20 MG Vital Signs/I&O 04/20/23 04/20/23 04/20/23 10:45 11:04 11:10 Temp 37.3 Pulse 100 113 85 Resp 16 B/P (MAP) 113/83 (93) 123/95 108/80 Pulse Ox 16 O2 Delivery Room Air Blood Pressure Mean: 93 Progress Progress Note : Progress Note 67-year-old male with above history coming in via EMS from home due to elevated heart rate. The patient was in atrial flutter on arrival with a heart rate in the 80s after he received a diltiazem bolus by EMS. An IV was placed and we royer some basic labs including cardiac enzymes. EKG ordered and interpreted by me showing atrial flutter with a heart rate in the 80s with no acute ischemic changes. Patient feeling better when his heart rate was controlled. We decided to monitor him since he had already taken his oral diltiazem this morning, and see if his heart rate remained controlled. He stood up to use the restroom, heart rate immediately jumped up to 170s and he was feeling lightheaded and sym ptomatic. He was then started on a diltiazem drip after a repeat bolus here. Heart rate did improve after that, continue to get elevated with any type of movement even on the diltiazem drip. I contacted Dr. Goyal, he will be in consultation as a drama professor when the patient arrives to the ICU in [place]. I then contacted the resident on-call for Dr. Hidalgo, they will be admitting the patient. I then contacted the ICU physician for signout. Initial ECG Impression Date: Apr 20, 2023 Initial ECG Impression Time: 10:36 Initial ECG Rate: 84 Initial ECG Rhythm: A Fib/Flutter Comment Narrow QRS, normal axis, atrial flutter with 3-1 conduction, no STEMI Diagnostic Imaging Diagonstic Imaging: Xray (chest) Departure Impression Primary Impression: Atrial flutter Disposition: 30 STILL A PATIENT Condition: Stable Admissions Decision to Admit Reason: Admit from ER (General) Decision to Admit/Date: Apr 20, 2023 Time/Decision to Admit Time: 11:55 Departure-Patient Inst. Referrals: RAMESH LUONG APRN (PCP) Primary Care Physician [facility] (Family) Primary Care Physician DHAVAL GOMEZ MD Apr 20, 2023 10:53
[2023-04-20] MEDS ORDERED: dilTIAZem IV FOR DRIP 125 MG in NS (IVPB) 100 ML 100 ML IV STA (10:56)
[2023-04-20 10:57] LABS: BASOPHILS # (AUTO) 0.1 10^3/uL (0.0-0.1); BASOPHILS % (AUTO) 1 % (0-10); EOSINOPHILS # (AUTO) 0.1 10^3/uL (0.0-0.3); EOSINOPHILS % (AUTO) 1 % (0-10); HEMATOCRIT 44 % (40-54); HEMOGLOBIN 14.8 g/dL (13.3-17.7); LYMPHOCYTES # (AUTO) 1.7 10^3/uL (1.0-4.0); LYMPHOCYTES % (AUTO) 15 % (12-44); MEAN CORPUSCULAR HEMOGLOBIN 29 pg (25-34); MEAN CORPUSCULAR HGB CONC 34 g/dL (32-36); MEAN CORPUSCULAR VOLUME 85 fL (80-99); MEAN PLATELET VOLUME 9.5 fL (9.0-12.2); MONOCYTES % (AUTO) 10 % (0-12); NEUTROPHILS # (AUTO) 7.8 10^3/uL (1.8-7.8); NEUTROPHILS % (AUTO) 73 % (42-75); PLATELET COUNT 316 10^3/uL (130-400); WHITE BLOOD COUNT 10.8 10^3/uL (4.3-11.0)
[2023-04-20] MEDS ORDERED: dilTIAZem INJ 25 MG/5 ML VIAL IVP ONE (11:00)
[2023-04-20] MEDS ORDERED: dilTIAZem DRIP PRE-MIX 125 ML IV ONE (11:02)
[2023-04-20 11:15] LABS: CHLORIDE 104 MMOL/L (98-107); POTASSIUM 3.6 MMOL/L (3.6-5.0); PROTHROMBIN TIME PATIENT 13.2 SEC (12.2-14.7); SODIUM 137 MMOL/L (135-145)
--- NOTE | 2023-04-20 11:29 | Diagnostic Imaging Report ---
INDICATION: Substernal chest pain. EXAMINATION: Portable chest at 11:05 AM. FINDINGS: The heart size and pulmonary vascularity are normal. The lungs are clear. There are no effusions or pneumothoraces. IMPRESSION: Negative chest. Dictated by: Dictated on workstation # [id number]
[2023-04-20 11:30] LABS: BUN/CREATININE RATIO 12; CARBON DIOXIDE 20 MMOL/L (21-32); CREATININE SERUM 1.09 MG/DL (0.60-1.30); GFR ESTIMATED 75; GLUCOSE 109 MG/DL (70-105)
[2023-04-20 11:31] LABS: ALANINE AMINOTRANSFERASE 33 U/L (0-55); ALBUMIN 4.1 GM/DL (3.2-4.5); ALKALINE PHOSPHATASE 82 U/L (40-136); BILIRUBIN,TOTAL 0.5 MG/DL (0.1-1.0); CALCIUM 9.4 MG/DL (8.5-10.1); LIPASE 14 U/L (8-78); MAGNESIUM 2.2 MG/DL (1.6-2.4); TOTAL PROTEIN 6.9 GM/DL (6.4-8.2)
[2023-04-20] MEDS ORDERED: POTASSIUM CHLORIDE 20 MEQ TABLET PO ONE (12:00)
--- NOTE | 2023-04-20 12:18 | History & Physical ---
BLUE WYATT MD,RESIDENT 04/20/23 1218: HPI History of Present Illness: CC: HPI: 67-year-old male with past medical history significant for HTN, HLD, COPD, and new atrial flutter, presenting to ED via EMS from home due to a flutter with rate in the 160s. The patient was seen in the ER on Thursday, diagnosed with Aflutter at that time and was started on a Cardizem drip. They unsuccessfully attempted transfer, and he was discharged home on Eliquis and extended release Cardizem. He took those medications this morning (04/20), has been anticoagulated < 48hr. Around 1:30 AM this morning, he started feeling chest pain and like his heart was racing. He called EMS when he started feeling short of breath and having some chest discomfort this morning. On their arrival, he was in Aflutter with a rate of 160s. He was started on 20 mg of IV Cardizem as a bolus, this decreased his rate to the 80s, however his rhythm still irregular in Aflutter. Dr. Goyal was consulted in the ED. Pt admitted to ICU for further management. Source: patient Time Seen by Provider: 14:30 Attending Physician Corinna Leal Aprn PCP Admitting Physician: Attending Physician: Consult Date of Admission Home Medications Home Medications Reviewed patient Home Medication Reconciliation performed by pharmacy medication reconciliations plastic eye technician and/or nursing. Patients Allergies have been reviewed. Allergies Coded Allergies: No Known Drug Allergies (Unverified , 03/30/23) VNL-Txyczg-Hexkcp Hx Patient Social History 2nd Hand Smoke Exposure: No Recent Hopitalizations: No Alcohol Use?: No Immunizations Up To Date First/Initial COVID19 Vaccinat: 2 shots Second COVID19 Vaccination Naman: 2 shots Third COVID19 Vaccination Date: 2 shots Family Medical History Other Significan Family Hx: SOCIAL HISTORY: -PT SMOKED 4-5 PPD, QUIT 1988 -ETOH--DRANK AT LEAST 2 FIFTHS OF VODKA PLUS TEQUILA EVERY DAY--QUIT 1988 -DRUGS--"ANYTHING I COULD GET MY HANDS ON"--METH, CRACK COCAINE, SPEED, "YELLOW JACKETS" --"EVERYTHING", INCLUDING IV DRUG USE--QUIT 1988 Review of Systems ([facility]) Constitutional: no symptoms reported Respiratory: short of breath Cardiovascular: palpitations Gastrointestinal: no symptoms reported Musculoskeletal: no symptoms reported Skin: no symptoms reported Physical Ex[facility] Physical Exam Vital Signs VS - Last 72 Hours, by Label 04/20/23 04/20/23 04/20/23 04/20/23 10:45 11:04 11:10 12:34 Temp 37.3 Pulse 100 113 85 86 Resp 16 17 B/P (MAP) 113/83 (93) 123/95 108/80 121/80 Pulse Ox 16 95 O2 Delivery Room Air Room Air 04/20/23 04/20/23 14:00 14:20 Pulse 100 86 B/P (MAP) 133/93 (106) Pulse Ox 95 O2 Delivery Room Air Capillary Refill : General Appearance: no apparent distress Neck: full range of motion Respiratory: lungs clear, normal breath sounds, no respiratory distress, no accessory muscle use Cardiovascular: irregularly irregular Gastrointestinal: non tender, soft Extremities: no pedal edema Neurologic/Psychiatric: alert, normal mood/affect, oriented x 3 Skin: warm/dry Assessment/Plan Assessment/Plan Admission Dx Atrial flutter Admission Status: Inpatient Order (span 2 midnights) Reason for Inpatient Admission: Atrial flutter (1) Atrial flutter Status: Acute Assessment & Plan: Pt with new dx Aflutter a few days ago, now with uncontrolled atrial flutter on EKG PLAN: Consult cardiology Diltiazem gtt Telemetry ACCOUNT LIAISON Eliquis 5mg BID (last dose this morning 5mg) (2) Palpitations (3) COPD (chronic obstructive pulmonary disease) Assessment & Plan: Not on home O2 PLAN: MAT protocol Supplemental O2 if needed (4) HTN (hypertension) Assessment & Plan: PLAN: Resume ACCOUNT LIAISON lisinopril 40 mg when stable SVITLANA BURGESS MD 04/21/23 1731: Home Medications Allergies Coded Allergies: No Known Drug Allergies (Unverified , 03/30/23) Supervisory-Addendum Brief Supervisory Addendum I personally performed the logan portions of the visit, discussed case with resident and concur with resident documentation of history, physical exam, assessment and treatment plan unless otherwise noted. Patient seen by me for H&P 04/21 Reviewed Echo, normal EF with left ventricular hypertrophy BLUE WYATT MD,RESIDENT Apr 20, 2023 12:18 SVITLANA BURGESS MD Apr 21, 2023 17:31
[2023-04-20] MEDS ORDERED: LACTULOSE SYRUP 10GM/15ML 30ML UDC PO PRN (14:30)
[2023-04-20] MEDS ORDERED: ONDANSETRON INJECTION 4 MG/2 ML (SDV) IV PRN (14:30)
[2023-04-20] MEDS ORDERED: dilTIAZem IV FOR DRIP 125 MG in NS (IVPB) 100 ML 100 ML IV SCH (14:30)
[2023-04-20] MEDS ORDERED: diphenhydrAMINE 25 MG TABLET PO PRN (14:30)
[2023-04-20] MEDS ORDERED: diphenhydrAMINE INJ 50 MG/ML VIAL IVP PRN (14:30)
[2023-04-20] MEDS ORDERED: MELATONIN 3 MG TABLET PO PRN (14:30)
[2023-04-20] MEDS ORDERED: ANTACID SUSPENSION 30 ML UDC PO PRN (14:30)
[2023-04-20] MEDS ORDERED: ONDANSETRON 4 MG ORAL DISSOLVE TABLET PO PRN (14:30)
[2023-04-20] MEDS ORDERED: NS IV 500 ML 500 ML IV PRN (14:30)
[2023-04-20] MEDS ORDERED: BISACODYL 10 MG SUPPOSITORY PR PRN (14:30)
[2023-04-20] MEDS ORDERED: ACETAMINOPHEN 325 MG TABLET PO PRN (14:30)
[2023-04-20] MEDS ORDERED: ACETAMINOPHEN 500 MG TABLET PO PRN (14:30)
[2023-04-20] MEDS ORDERED: LIDOCAINE UROJET 2% GEL 10 ML PKG ONE (14:46)
--- NOTE | 2023-04-20 15:27 | Tele-ICU Progress Note ---
Subjective Date Seen by a Provider: Apr 20, 2023 Time Seen by a Provider: 15:25 Subjective/Events-last exam (Tele-ICU Physician , Progress Note ) Service provided via interactive audio and video telecommunications E-CARE system to a patient admitted to ICU bed in [facility]. Patient is seen today due to persistent need of ICU care Available chart/ vitals / labs / Images reviewed Video assessment done using teleICU camera, rest of exam as per RN He is a 67-year-old male with past medical history of hypertension, COPD, HLD and hyponatremia presented to the emergency room on 04/18/2023 with palpitation and found to have a atrial flutter with rapid ventricular rate. He is a treated with diltiazem and Eliquis. However today he presented again to the emergency room with chest pain and racing heart and found to have atrial flutter with rapid ventricular rate. Hence he is started again on diltiazem drip and admitted to the intensive care unit for further management and evaluation.. C ardiologist was consulted. He has no history of thyroid disorder. No history of coronary artery disease. Impression 1. New onset atrial flutter with rapid ventricular rate 2. Hypertension 3. History of COPD currently stable Recommendations 1. Continue diltiazem drip 2. Further evaluation and management 3. Continue anticoagulant therapy. 4. Hypertension management per cardiology and primary care. I have discussed the care with the UNDERWATER TRAPPER Yanet. Coordination of care with primary care physician and bedside consultants. I am remotely monitoring this patient from Tele icu station in [place]. I am unable to do the bedside exam, and history/physical and pertinent information is taken from other notes in the computer and bedside staff. Certain portions of this document may have been dictated utilizing voice recognition technology such as Zendesk. Inherent to this technology, t ypographical and grammatical errors may exist. As much as I am diligent to identify and correct to these mistakes, some errors may remain in the document. Critical care time devoted to this patient today is approximately is 20 minutes.-- Sepsis Event Evaluation Height, Weight, BMI Height: '" Weight: lbs. oz. kg; 200.58 BMI Method: Exam Exam Patient acknowledged, consented, and participated in this virtual visit which was conducted using real time audio/video Vital Signs Date Time Temp Pulse Resp B/P (MAP) Pulse Ox O2 Delivery O2 Flow Rate FiO2 04/20/23 14:20 86 04/20/23 14:00 100 133/93 (106) 95 Room Air 04/20/23 12:34 86 17 121/80 95 Room Air 04/20/23 11:10 85 108/80 04/20/23 11:04 113 123/95 04/20/23 10:45 37.3 100 16 113/83 (93) 16 Room Air Height & Weight Height: '" Weight: lbs. oz. kg; 200.58 BMI Method: General Appearance: No Apparent Distress, WD/WN HEENT: PERRL/EOMI, Normal ENT Inspection, Pharynx Normal Neck: Full Range of Motion, Normal Inspection, Non Tender, Supple Respiratory: Chest Non Tender, Lungs Clear, Normal Breath Sounds, No Accessory Muscle Use, No Respiratory Distress Cardiovascular: Regular Rate, Rhythm, Normal Peripheral Pulses Gastrointestinal: non tender, soft Extremity: Normal Capillary Refill, Normal Inspection, Normal Range of Motion, Non Tender, No Calf Tenderness, No Pedal Edema Neurologic/Psychiatric: Alert, No Motor/Sensory Deficits, Normal Mood/Affect Skin: Normal Color, Warm/Dry Results Lab Laboratory Tests 04/20/23 10:51 Assessment/Plan Assessment/Plan as above Critical Care: Critically Ill Patient Time spent with patient (mins): 20 TORSTEN RIVAS MD Apr 20, 2023 15:27
[2023-04-20] MEDS ORDERED: meTOprolol INJECTION 5 MG/5 ML VIAL IV NR (15:45)
[2023-04-20 15:56] VITALS: BP 133/93
[2023-04-20] MEDS ORDERED: TRZ50T PO (15:57)
[2023-04-20] MEDS ORDERED: DILT180C67 PO (15:57)
[2023-04-20] MEDS ORDERED: APIX5TAB PO (15:57)
[2023-04-20] MEDS ORDERED: ACET-2840 PO (15:57)
[2023-04-20] MEDS ORDERED: ALBU18HF2 INH (15:57)
[2023-04-20] MEDS ORDERED: ATOR20TA66 PO (15:57)
[2023-04-20] MEDS ORDERED: LISI40TA9 PO (15:57)
[2023-04-20] MEDS ORDERED: DIAZ5TAB49 PO (15:57)
[2023-04-20] MEDS ORDERED: RT-Ipratropium/Albuterol NEB 3 ML VIAL INH PRN (16:00)
--- NOTE | 2023-04-20 16:13 | Consultation-Cardiology ---
HPI-Cardiology Cardiology Consultation Date of Consultation 04/20/23 Date of Admission Time Seen by Provider: 16:09 Indication: Palpitation HPI 67-year-old gentleman with history of hypertension, started to have palpitation about 2 days ago, went to the emergency room and noted to be in atrial flutter with variable response, started on oral Cardizem which controlled his heart r ate, patient returned to the emergency room with recurrent episodes of palpitation feeling rapid heart rate. He was started on Cardizem drip and his heart rate is better controlled on the Cardizem drip but it started increasing with any movement. Denied any chest pain, no previous cardiac history Home Medications & Allergies Allergies: Coded Allergies: No Known Drug Allergies (Unverified , 03/30/23) Home Medication List Reviewed: Yes [id number] Hx Patient Social History Marital Status: Employed/Student: retired 2[employer] Smoke Exposure: No Recent Hopitalizations: No Alcohol Use?: No Past Medical History Discussed below Family Medical History Significant Family History: Heart Disease Family Medical Hx Sister has history of palpitation and irregular heartbeat Review of Systems-General Review of Systems Constitutional: no symptoms reported, malaise EENTM: see HPI, no symptoms reported Respiratory: see HPI; No cough, No dyspnea on exertion, No hemoptysis, No orthopnea, No phlegm; short of breath; No stridor, No wheezing, No other Cardiovascular: see HPI; No chest pain, No edema, No Hx of Intervention; palpitations; No syncope, No vascular heart diseas, No other Gastrointestinal: no symptoms reported Genitourinary: no symptoms reported, see HPI Musculoskeletal: no symptoms reported Skin: no symptoms reported Psychiatric/Neurological: No Symptoms Reported All Other Systems Reviewed Negative Unless Noted: Yes Reviewed Test Results Reviewed Test Results Lab Laboratory Tests Test 04/20/23 10:51 Range/Units White Blood Count 10.8 4.3-11.0 10^3/uL Red Blood Count 5.18 4.30-5.52 10^6/uL Hemoglobin 14.8 13.3-17.7 g/dL Hematocrit 44 40-54 % Mean Corpuscular Volume 85 80-99 fL Mean Corpuscular Hemoglobin 29 25-34 pg Mean Corpuscular Hemoglobin Concent 34 32-36 g/dL Red Cell Distribution Width 13.0 10.0-14.5 % Platelet Count 316 130-400 10^3/uL Mean Platelet Volume 9.5 9.0-12.2 fL Immature Granulocyte % (Auto) 0 % Neutrophils (%) (Auto) 73 42-75 % Lymphocytes (%) (Auto) 15 12-44 % Monocytes (%) (Auto) 10 0-12 % Eosinophils (%) (Auto) 1 0-10 % Basophils (%) (Auto) 1 0-10 % Neutrophils # (Auto) 7.8 1.8-7.8 10^3/uL Lymphocytes # (Auto) 1.7 1.0-4.0 10^3/uL Monocytes # (Auto) 1.0 0.0-1.0 10^3/uL Eosinophils # (Auto) 0.1 0.0-0.3 10^3/uL Basophils # (Auto) 0.1 0.0-0.1 10^3/uL Immature Granulocyte # (Auto) 0.0 0.0-0.1 10^3/uL Percent Immature Platelet Fraction 2.0 0.0-7.6 % Prothrombin Time 13.2 12.2-14.7 SEC INR Comment 1.0 0.8-1.4 Activated Partial Thromboplast Time 32 24-35 SEC Sodium Level 137 135-145 MMOL/L Potassium Level 3.6 3.6-5.0 MMOL/L Chloride Level 104 98-107 MMOL/L Carbon Dioxide Level 20 L 21-32 MMOL/L Anion Gap 13 5-14 MMOL/L Blood Urea Nitrogen 13 7-18 MG/DL Creatinine 1.09 0.60-1.30 MG/DL Estimat Glomerular Filtration Rate 75 BUN/Creatinine Ratio 12 Glucose Level 109 H 70-105 MG/DL Calcium Level 9.4 8.5-10.1 MG/DL Corrected Calcium 9.3 8.5-10.1 MG/DL Magnesium Level 2.2 1.6-2.4 MG/DL Total Bilirubin 0.5 0.1-1.0 MG/DL Aspartate Amino Transf (AST/SGOT) 19 5-34 U/L Alanine Aminotransferase (ALT/SGPT) 33 0-55 U/L Alkaline Phosphatase 82 40-136 U/L Troponin I < 0.30 <0.30 NG/ML Pro-B-Type Natriuretic Peptide 2438.0 H <125.0 PG/ML Total Protein 6.9 6.4-8.2 GM/DL Albumin 4.1 3.2-4.5 GM/DL Lipase 14 8-78 U/L Physical Exam Physical Exam Vital Signs Vital Signs - First Documented 04/20/23 10:45 Temp 37.3 Pulse 100 Resp 16 B/P (MAP) 113/83 (93) Pulse Ox 16 O2 Delivery Room Air Capillary Refill : Height, Weight, BMI Height: '" Weight: lbs. oz. kg; 200.58 BMI Method: General Appearance: No Apparent Distress, WD/WN Eyes: Bilateral Eye Normal Inspection, Bilateral Eye PERRL, Bilateral Eye EOMI HEENT: PERRL/EOMI, Normal ENT Inspection, Pharynx Normal Neck: Full Range of Motion, Normal Inspection, Non Tender, Supple Respiratory: Chest Non Tender, Lungs Clear, Normal Breath Sounds, No Accessory Muscle Use, No Respiratory Distress Cardiovascular: Regular Rate, Rhythm, Normal Peripheral Pulses Gastrointestinal: Normal Bowel Sounds, Non Tender, Soft; No Distended, No Guarding Back: Normal Inspection, No CVA Tenderness, No Vertebral Tenderness Extremity: Normal Capillary Refill, Normal Inspection, Normal Range of Motion, Non Tender, No Calf Tenderness, No Pedal Edema Neurologic/Psychiatric: Alert, No Motor/Sensory Deficits, Normal Mood/Affect Skin: Normal Color, Warm/Dry Lymphatic: No Adenopathy A/P-Cardiology Admission Diagnosis Atrial flutter Palpitation Hypertension Hyperlipidemia Assessment/Plan Atrial flutter of unknown duration, difficult to achieve adequate control Started on Cardizem CD 180 as an outpatient without improvement, heart rate at rest is controlled but increased significantly with minimal activity I will continue on Cardizem drip and added Lopressor Planning for PATO and electrical cardioversion if he did not convert on his own Palpitation, secondary to atrial flutter Hypertension, maintained on Cardizem and lisinopril. Monitor blood pressure [id number] score 2, started on Eliquis on April 18, 2023. Planning to continue on oral anticoagulation Hyperlipidemia, monitor lipids Arthritis and joint pain. Family history of irregular heartbeat and atrial fibrillation/flutter QUOC CLAROS MD Apr 20, 2023 16:12
[2023-04-20] MEDS: dilTIAZem DRIP 125 MG/125 ML DRIP IV SCH (16:44)
[2023-04-20 19:03] LABS: AMPHETAMINE SCREEN, URINE NEGATIVE (NEGATIVE); BARBITURATE SCREEN URINE NEGATIVE (NEGATIVE); CANNABINOID SCREEN, URINE NEGATIVE (NEGATIVE); COCAINE SCREEN URINE NEGATIVE (NEGATIVE); METHADONE STAT NEGATIVE (NEGATIVE); OPIATE SCREEN URINE NEGATIVE (NEGATIVE); OXYCODONE STAT NEGATIVE (NEGATIVE); PROPOXYPHENE STAT NEGATIVE (NEGATIVE); TRICYCLIC ANTIDEPRESSANTS SCRE NEGATIVE (NEGATIVE)
[2023-04-20] MEDS: meTOprolol TARTRATE (IR) 25 MG TABLET PO SCH (21:08)
[2023-04-20] MEDS: APIXABAN 5 MG TABLET PO SCH (21:08)
[2023-04-20] MEDS: DOCUSATE SODIUM 100 MG CAPSULE PO SCH (22:08)
[2023-04-21] MEDS: dilTIAZem DRIP 125 MG/125 ML DRIP IV SCH (01:31)
[2023-04-21 03:42] VITALS: BP 129/88
[2023-04-21 04:39] LABS: BASOPHILS # (AUTO) 0.1 10^3/uL (0.0-0.1); BASOPHILS % (AUTO) 0 % (0-10); EOSINOPHILS # (AUTO) 0.1 10^3/uL (0.0-0.3); EOSINOPHILS % (AUTO) 1 % (0-10); HEMATOCRIT 43 % (40-54); HEMOGLOBIN 14.4 g/dL (13.3-17.7); LYMPHOCYTES # (AUTO) 1.7 10^3/uL (1.0-4.0); LYMPHOCYTES % (AUTO) 13 % (12-44); MEAN CORPUSCULAR HEMOGLOBIN 28 pg (25-34); MEAN CORPUSCULAR HGB CONC 33 g/dL (32-36); MEAN CORPUSCULAR VOLUME 84 fL (80-99); MEAN PLATELET VOLUME 10.1 fL (9.0-12.2); MONOCYTES # (AUTO) 1.3 10^3/uL (0.0-1.0); MONOCYTES % (AUTO) 10 % (0-12); NEUTROPHILS # (AUTO) 10.2 10^3/uL (1.8-7.8); NEUTROPHILS % (AUTO) 76 % (42-75); PLATELET COUNT 302 10^3/uL (130-400); WHITE BLOOD COUNT 13.4 10^3/uL (4.3-11.0)
[2023-04-21 04:52] LABS: POTASSIUM 3.8 MMOL/L (3.6-5.0)
[2023-04-21 04:55] LABS: TOTAL PROTEIN 6.9 GM/DL (6.4-8.2)
[2023-04-21 04:56] LABS: BILIRUBIN,TOTAL 0.6 MG/DL (0.1-1.0)
[2023-04-21 04:58] LABS: CREATININE SERUM 1.02 MG/DL (0.60-1.30); PHOSPHORUS 3.1 MG/DL (2.3-4.7)
[2023-04-21] MEDS: MAGNESIUM 1 GM/100 ML IVPB 100 ML IV SCH (04:59)
[2023-04-21] MEDS: POTASSIUM CL 10MEQ/50ML IVPB 50 ML IV SCH (05:00)
[2023-04-21] MEDS: POTASSIUM CHLORIDE 20 MEQ TABLET PO SCH (05:00)
[2023-04-21] MEDS: RT-Ipratropium/Albuterol NEB 3 ML VIAL INH SCH ×3 (07:22→22:32)
--- NOTE | 2023-04-21 07:24 | Progress Note ---
BLUE WYATT MD,RESIDENT 04/21/23 0724: Subjective Subjective/Events-last exam No acute events overnight. Pt required breathing treatment early this morning, reports feeling much better afterwards. Objective Exam Last Set of Vital Signs Vital Signs Date Time Temp Pulse Resp B/P (MAP) Pulse Ox O2 Delivery O2 Flow Rate FiO2 04/21/23 06:00 82 20 100/71 (81) 97 Room Air 04/20/23 19:52 36.5 Capillary Refill : Less Than 3 Seconds I&O Intake and Output 04/20/23 23:59 Intake Total 500 ml Output Total 650 ml Balance -150 ml Intake Oral 500 ml Output Urine Total 650 ml Daily Weight Change No General: Alert, Oriented X3, No Acute Distress Lungs: Clear to Auscultation Heart: Other (Irregulary, irregular) Abdomen: Soft, No Tenderness Skin: No Rashes Neuro: Normal Speech Psych/Mental Status: Mental Status NL, Mood NL Results/Procedures Lab Laboratory Tests 04/20/23 10:51: White Blood Count 10.8, Red Blood Count 5.18, Hemoglobin 14.8, Hematocrit 44, Mean Corpuscular Volume 85, Mean Corpuscular Hemoglobin 29, Mean Corpuscular Hemoglobin Concent 34, Red Cell Distribution Width 13.0, Platelet Count 316, Mean Platelet Volume 9.5, Immature Granulocyte % (Auto) 0, Neutrophils (%) (Auto) 73, Lymphocytes (%) (Auto) 15, Monocytes (%) (Auto) 10, Eosinophils (%) (Auto) 1, Basophils (%) (Auto) 1, Neutrophils # (Auto) 7.8, Lymphocytes # (Auto) 1.7, Monocytes # (Auto) 1.0, Eosinophils # (Auto) 0.1, Basophils # (Auto) 0.1, Immature Granulocyte # (Auto) 0.0, Percent Immature Platelet Fraction 2.0, Prothrombin Time 13.2, INR Comment 1.0, Activated Partial Thromboplast Time 32, Sodium Level 137, Potassium Level 3.6, Chloride Level 104, Carbon Dioxide Level 20L, Anion Gap 13, Blood Urea Nitrogen 13, Creatinine 1.09, Estimat Glomerular Filtration Rate 75, BUN/Creatinine Ratio 12, Glucose Level 109H, Calcium Level 9.4, Corrected Calcium 9.3, Magnesium Level 2.2, Total Bilirubin 0.5, Aspartate Amino Transf (AST/SGOT) 19, Alanine Aminotransferase (ALT/SGPT) 33, Alkaline Phosphatase 82, Troponin I < 0.30, Pro-B-Type Natriuretic Peptide 2438.0H, Total Protein 6.9, Albumin 4.1, Lipase 14 04/20/23 17:30: Urine Opiates Screen NEGATIVE, Urine Oxycodone Screen NEGATIVE, Urine Methadone Screen NEGATIVE, Urine Propoxyphene Screen NEGATIVE, Urine Barbiturates Screen NEGATIVE, Ur Tricyclic Antidepressants Screen NEGATIVE, Urine Phencyclidine Screen NEGATIVE, Urine Amphetamines Screen NEGATIVE, Urine Methamphetamines Screen NEGATIVE, Urine Benzodiazepines Screen POSITIVEH, Urine Cocaine Screen NEGATIVE, Urine Cannabinoids Screen NEGATIVE 04/20/23 17:57: Thyroid Stimulating Hormone (TSH) 0.58 04/21/23 03:58: White Blood Count 13.4H, Red Blood Count 5.13, Hemoglobin 14.4, Hematocrit 43, Mean Corpuscular Volume 84, Mean Corpuscular Hemoglobin 28, Mean Corpuscular Hemoglobin Concent 33, Red Cell Distribution Width 12.7, Platelet Count 302, Mean Platelet Volume 10.1, Immature Granulocyte % (Auto) 0, Neutrophils (%) (Auto) 76H, Lymphocytes (%) (Auto) 13, Monocytes (%) (Auto) 10, Eosinophils (%) (Auto) 1, Basophils (%) (Auto) 0, Neutrophils # (Auto) 10.2H, Lymphocytes # (Auto) 1.7, Monocytes # (Auto) 1.3H, Eosinophils # (Auto) 0.1, Basophils # (Auto) 0.1, Immature Granulocyte # (Auto) 0.0, Sodium Level 138, Potassium Level 3.8, Chloride Level 106, Carbon Dioxide Level 20L, Anion Gap 12, Blood Urea Nitrogen 13, Creatinine 1.02, Estimat Glomerular Filtration Rate 82, BUN/Creatinine Ratio 13, Glucose Level 119H, Calcium Level 9.0, Corrected Calcium 9.0, Magnesium Level 2.0, Total Bilirubin 0.6, Aspartate Amino Transf (AST/SGOT) 21, Alanine Aminotransferase (ALT/SGPT) 34, Alkaline Phosphatase 75, Total Protein 6.9, Albumin 4.0, Phosphorus Level 3.1 Assessment/Plan Assessment/Plan Admission Dx Aflutter Admission Status: Inpatient Order (span 2 midnights) Reason for Inpatient Admission: Aflutter (1) Atrial flutter Status: Acute Assessment & Plan: Pt with new dx Aflutter a few days ago, now with uncontrolled atrial flutter on EKG PLAN: Consult cardiology - PATO cardioversion 04/21 Diltiazem gtt Telemetry HAND SOLE SEWER Eliquis 5mg BID (last dose this morning 5mg) (2) Palpitations (3) COPD (chronic obstructive pulmonary disease) Assessment & Plan: Not on home O2 PLAN: MAT protocol Supplemental O2 if needed (4) HTN (hypertension) Assessment & Plan: PLAN: Holding HAND SOLE SEWER lisinopril 40 SVITLANA BURGESS MD 04/21/23 1732: Supervisory-Addendum Brief Supervisory Addendum I personally performed the logan portions of the visit, discussed case with abran sy and concur with resident documentation of history, physical exam, assessment and treatment plan unless otherwise noted. See H&P BLUE WYATT MD,RESIDENT Apr 21, 2023 07:24 SVITLANA BURGESS MD Apr 21, 2023 17:32
[2023-04-21] MEDS ORDERED: LIDOCAINE 2% VISCOUS 15 ML UDC ONE (07:35)
[2023-04-21] MEDS ORDERED: MIDAZOLAM INJ 2 MG/2 ML VIAL ONE (07:58)
[2023-04-21] MEDS ORDERED: proPOfol INJECTION 200 MG/20 ML VIAL IV ONE (07:58)
[2023-04-21] MEDS ORDERED: LIDOCAINE 2% VISCOUS 15 ML UDC PO ONE (08:00)
[2023-04-21] MEDS ORDERED: POTASSIUM CHLORIDE 20 MEQ TABLET PO ONE (08:00)
--- NOTE | 2023-04-21 08:29 | Anesthesia-General Post-Op ---
MAC Patient Condition Mental Status/LOC: Same as Preop Cardiovascular: Satisfactory Nausea/Vomiting: Absent Respiratory: Satisfactory Pain: Controlled Complications: Absent Post Op Complications Complications None Follow Up Care/Instructions Patient Instructions None needed. Anesthesiology Discharge Order Discharge Order Patient is doing well, no complaints, stable vital signs, no apparent adverse anesthesia problems. No complications reported per nursing. MARIE BURCIAGA CRNA Apr 21, 2023 08:29
--- NOTE | 2023-04-21 08:31 | Cardiac Procedure Note-CS/ASA ---
Pre-Procedure Note Pre-Op Procedure Note Date of Available H&P: Apr 21, 2023 Date H&P Reviewed: Apr 21, 2023 Time H&P Reviewed: 08:00 History & Physical: H&P Reviewed, Patient Examed, No changes noted Pre-Operative Diagnosis: a flutter Moderate Sedation PreProcedure Time 08:31 ASA Score 3 Airway Lungs Heart ASA score ASA 1: a normal healthy patient ASA 2: a patient with a mild systemic disease (mid diabetes, controlled hypertension, obesity ASA 3: a patient with a severe systemic disease that limits activity (angina, COPD, prior Myocardial infarction) ASA 4: a patient with an incapacitating disease that is a constant threat to life (CHF, renal failure) ASA 5: a moribund patient not expected to survive 24 hrs. (ruptured aneurysm) ASA 6: a declared brain- patient whose organs are being harvested. For emergent operations, add the letter E after the classification Mallampati Classification Grade 3 Sedation Plan Analgesia, Amnesia, Plan communicated to team members, Discussed options with patient/fam, Discussed risks with patient/fam The patient is an appropriate candidate to undergo the planned procedure, sedation, and anesthesia. The patient immediately re-assessed prior to indication. QUOC CLAROS MD Apr 21, 2023 08:31
--- NOTE | 2023-04-21 08:32 | Cardioversion ---
Cardioversion PROCEDURE PHYSICIAN: Quoc Goyal DATE OF PROCEDURE: 04/21/23 DIRECT EXTERNAL ELECTRICAL CARDIOVERSION: Indications: Atrial flutter Preoperative diagnoses: Atrial flutter Postoperative diagnosis: Sinus rhythm, Successful Electrical Cardioversion History: 67-year-old gentleman with persistent atrial flutter, difficult to control heart rate. Has been maintained on diltiazem. Underwent PATO did not show any clot or thrombus within the left atrial appendage. Anesthesia: By Anesthesia services Complications: None Specimen: None Contrast: 0 Flouroscopy: none Procedure Details: The patient was brought the cardiac cath technician after informed consent was taken, all the risks and complications were explained including the risk of stroke. Electrical cardioversion was carried out with anesthesia support with propofol. 200 joules of synchronized shock was delivered through external patches which promptly restored sinus rhythm. The patient tolerated the procedure well. Conclusions: Successful electrical cardioversion terminating atrial flutter QUOC GOYAL MD Apr 21, 2023 08:32
--- NOTE | 2023-04-21 08:34 | Cardiology Progress Note ---
Subjective Date Seen by Provider: Apr 21, 2023 Time Seen by Provider: 08:33 Subjective/Events-last exam Patient was seen at bedside, still tachycardic with atrial flutter. We proceeded with cardioversion and it was successful Objective-Cardiology Exam Last Set of Vital Signs Vital Signs 04/21/23 04/21/23 04/21/23 07:24 07:48 08:25 Temp 36.4 Pulse 61 Resp 13 B/P (MAP) 82/45 (57) Pulse Ox 94 O2 Delivery Room Air O2 Flow Rate 2.00 I&O Intake and Output 04/21/23 00:00 Intake Total 500 ml Output Total 650 ml Balance -150 ml Intake Oral 500 ml Output Urine Total 650 ml Daily Weight Change No General: Alert, Oriented X3, Cooperative HEENT: Atraumatic, PERRLA Neck: Supple, No JVD, No Thyromegaly Lungs: Clear to Auscultation, Normal Air Movement Heart: Regular Rate, Normal S1, Normal S2, No Murmurs Abdomen: Normal Bowel Sounds, Soft, No Tenderness, No Hepatosplenomegaly, No Masses Extremities: No Clubbing, No Cyanosis, No Edema, Normal Pulses, No Tenderness/Swelling Skin: No Rashes, No Breakdown, No Significant Lesion Neuro: Normal Gait, Normal Speech, Strength at 5/5 X4 Ext, Normal Tone, Sensation Intact Psych/Mental Status: Mental Status NL, Mood NL Results Lab Laboratory Tests 04/20/23 10:51 04/21/23 03:58 A/P-Cardiology Admission Diagnosis Atrial flutter Palpitation Hypertension Hyperlipidemia Assessment/Plan Atrial flutter of unknown duration, difficult to achieve adequate control Started on Cardizem CD 180 as an outpatient without improvement, heart rate at rest is controlled but increased significantly with minimal activity Underwent PATO with electrical cardioversion on April 21, 2023 Currently in sinus rhythm, will start Cardizem CD 120 daily and continue on Eliquis Palpitation, secondary to atrial flutter Hypertension, maintained on Cardizem and lisinopril. Monitor blood pressure [id number] score 2, started on Eliquis on April 18, 2023. Planning to continue on oral anticoagulation Hyperlipidemia, monitor lipids Arthritis and joint pain. Family history of irregular heartbeat and atrial fibrillation/flutter Okay for discharge if he is tolerating Cardizem CD and arrange for follow-up as an outpatient Patient will need referral for EP evaluation and ablation QUOC CLAROS MD Apr 21, 2023 08:34
[2023-04-21] MEDS: DOCUSATE SODIUM 100 MG CAPSULE PO SCH ×3 (09:07→21:26)
[2023-04-21] MEDS: meTOprolol TARTRATE (IR) 25 MG TABLET PO SCH ×2 (09:24→21:26)
[2023-04-21] MEDS: dilTIAZem ER 120 MG CAPSULE PO SCH (09:25)
[2023-04-21] MEDS: APIXABAN 5 MG TABLET PO SCH ×2 (09:25→21:26)
[2023-04-21] MEDS: NS IV 500 ML 500 ML IV SCH ×2 (09:28→10:49)
--- NOTE | 2023-04-21 13:20 | Tele-ICU Progress Note ---
Subjective Date Seen by a Provider: Apr 21, 2023 Time Seen by a Provider: 13:17 Subjective/Events-last exam (Tele-ICU Physician , Progress Note ) Service provided via interactive audio and video telecommunications E-CARE system to a patient admitted to ICU bed in [facility]. Patient is seen today due to persistent need of ICU care Available chart/ vitals / labs / Images reviewed Video assessment done using teleICU camera, rest of exam as per RN Discussed with RN Events overnight : Afebrile hemodynamically stable Respiratory - I/O = Drips: Pressors- no Hospital course: (04/20) 67M Admitted for atrial flutter. Cardizem drip (04/21)- for PATO w/ electrical cardioversion A/P Atrial flutter s/p PATO with electrical cardioversion on April 21, 2023 in sinus rhythm -on Eliquis - plan as per cardiology mild dyspnea - off IVF OOB , IS Lines : per , (Central Line Necessity Reviewed) Lara: + = to remove OG: Nutrition: Analgesia: Anxiety/ delirium VTE Prophylaxis: eliquis Stress Ulcer Prophylaxis: Plans in collaboration with bedside consultants and IM MDs. Discussed with RN to reach out if any questions or concerns Case and care daily discussed on multidisciplinary rounds ( RN, PharmD, Human Performance Professor , Respiratory Therapy, turntable worker ) A total of 10 minutes of critical care time was devoted to this patient today, required to treat and/or prevent further deterioration of critical care condition ( as above ) . I am remotely monitoring this patient from another state. I am unable to do the bedside exam, and history/physical and pertinent information is taken from other notes in the computer and bedside staff. Sepsis Event Evaluation Height, Weight, BMI Height: '" Weight: lbs. oz. kg; 31.43 BMI Method: Exam Exam Patient acknowledged, consented, and participated in this virtual visit which was conducted using real time audio/video Vital Signs Date Time Temp Pulse Resp B/P (MAP) Pulse Ox O2 Delivery O2 Flow Rate FiO2 04/21/23 12:19 65 04/21/23 12:00 60 27 108/75 (86) 96 Room Air 04/21/23 11:10 Room Air 04/21/23 11:00 63 15 121/75 (90) 96 Room Air 04/21/23 10:00 65 28 106/62 (77) 95 Room Air 04/21/23 09:00 69 17 89/59 (69) 94 Room Air 04/21/23 08:55 71 15 97/60 (72) 94 Room Air 04/21/23 08:50 68 18 92/64 (73) 95 Room Air 04/21/23 08:45 67 23 106/69 (81) 95 Room Air 04/21/23 08:40 65 14 95/77 (83) 96 Room Air 04/21/23 08:35 66 24 98/65 (76) 97 Room Air 04/21/23 08:30 66 18 94/65 (75) 96 Room Air 04/21/23 08:25 61 04/21/23 08:25 61 13 82/45 (57) 94 Room Air 04/21/23 08:20 61 04/21/23 08:20 114 37 106/55 (72) 96 Room Air 04/21/23 08:15 154 14 152/80 (104) 95 Room Air 04/21/23 08:10 96 21 143/81 (101) 97 Room Air 04/21/23 08:05 115 30 110/78 (89) 98 Room Air 04/21/23 08:00 115 35 127/67 (87) 97 Room Air 04/21/23 07:55 Room Air 04/21/23 07:55 100 9 153/140 (144) 96 Room Air 04/21/23 07:50 93 04/21/23 07:50 100 25 127/66 (86) 97 Room Air 04/21/23 07:48 36.4 04/21/23 07:24 98 Nasal Cannula 2.00 04/21/23 07:00 80 20 135/83 (100) 95 Room Air 04/21/23 06:00 82 20 100/71 (81) 97 Room Air 04/21/23 05:00 80 19 98/66 (77) 96 Room Air 04/21/23 04:00 81 21 116/80 (92) 97 Room Air 04/21/23 04:00 Room Air 04/21/23 03:42 101 97 04/21/23 03:00 128 20 118/69 (85) 91 Room Air 04/21/23 02:10 97 Room Air 04/21/23 02:00 101 18 129/88 (102) 96 Room Air 04/21/23 01:31 84 134/97 04/21/23 01:00 81 20 134/97 (109) 94 Room Air 04/21/23 01:00 81 04/21/23 00:00 83 23 123/74 (90) 91 Room Air 04/20/23 23:45 Room Air 04/20/23 23:00 82 20 117/73 (88) 94 Room Air 04/20/23 22:00 82 30 142/96 (111) 92 Room Air 04/20/23 21:00 84 19 126/92 (103) 94 Room Air 04/20/23 20:00 85 15 144/96 (112) 94 Room Air 04/20/23 20:00 Room Air 04/20/23 19:52 36.5 86 130/80 (97) 92 Room Air 04/20/23 19:00 83 04/20/23 19:00 83 13 135/85 (102) 94 Room Air 04/20/23 18:00 86 17 130/86 (101) 94 Room Air 04/20/23 17:45 83 19 149/98 (115) 94 Room Air 04/20/23 17:30 84 26 146/95 (112) 93 Room Air 04/20/23 17:15 83 27 132/99 (110) 95 Room Air 04/20/23 16:44 86 118/86 04/20/23 16:00 Room Air 04/20/23 15:56 37.3 86 95 04/20/23 15:15 108 118/86 (97) 93 Room Air 04/20/23 14:20 86 04/20/23 14:00 100 133/93 (106) 95 Room Air I & O 04/21/23 07:00 Intake Total 750 ml Output Total 1050 ml Balance -300 ml Height & Weight Height: '" Weight: lbs. oz. kg; 31.43 BMI Method: General Appearance: No Apparent Distress, WD/WN HEENT: PERRL/EOMI, Normal ENT Inspection, Pharynx Normal Neck: Full Range of Motion, Normal Inspection, Non Tender, Supple Respiratory: Chest Non Tender, Lungs Clear, Normal Breath Sounds, No Accessory Muscle Use, No Respiratory Distress Cardiovascular: Regular Rate, Rhythm, Normal Peripheral Pulses Capillary Refill: Less Than 3 Seconds Gastrointestinal: non tender, soft Extremity: Normal Capillary Refill, Normal Inspection, Normal Range of Motion, Non Tender, No Calf Tenderness, No Pedal Edema Neurologic/Psychiatric: Alert, No Motor/Sensory Deficits, Normal Mood/Affect Skin: Normal Color, Warm/Dry Lymphatic: No Adenopathy Results Lab Laboratory Tests 04/20/23 10:51 04/21/23 03:58 Assessment/Plan Assessment/Plan 1 JEWEL OLVERA MD Apr 21, 2023 13:20
[2023-04-22] MEDS: RT-Ipratropium/Albuterol NEB 3 ML VIAL INH SCH ×2 (03:46→09:32)
[2023-04-22 04:43] LABS: BASOPHILS # (AUTO) 0.1 10^3/uL (0.0-0.1); BASOPHILS % (AUTO) 1 % (0-10); EOSINOPHILS # (AUTO) 0.3 10^3/uL (0.0-0.3); EOSINOPHILS % (AUTO) 3 % (0-10); HEMATOCRIT 37 % (40-54); HEMOGLOBIN 12.4 g/dL (13.3-17.7); LYMPHOCYTES # (AUTO) 2.9 10^3/uL (1.0-4.0); LYMPHOCYTES % (AUTO) 28 % (12-44); MEAN CORPUSCULAR HEMOGLOBIN 28 pg (25-34); MEAN CORPUSCULAR HGB CONC 33 g/dL (32-36); MEAN CORPUSCULAR VOLUME 85 fL (80-99); MONOCYTES # (AUTO) 1.2 10^3/uL (0.0-1.0); MONOCYTES % (AUTO) 12 % (0-12); NEUTROPHILS # (AUTO) 5.7 10^3/uL (1.8-7.8); NEUTROPHILS % (AUTO) 56 % (42-75); PLATELET COUNT 249 10^3/uL (130-400); WHITE BLOOD COUNT 10.2 10^3/uL (4.3-11.0)
[2023-04-22] MEDS: POTASSIUM CL 10MEQ/50ML IVPB 50 ML IV SCH (05:07)
[2023-04-22] MEDS: POTASSIUM CHLORIDE 20 MEQ TABLET PO SCH (05:08)
[2023-04-22] MEDS: MAGNESIUM 1 GM/100 ML IVPB 100 ML IV SCH (05:08)
[2023-04-22 05:37] LABS: ALBUMIN 3.7 GM/DL (3.2-4.5); BILIRUBIN,TOTAL 0.2 MG/DL (0.1-1.0); CALCIUM 8.5 MG/DL (8.5-10.1); CREATININE SERUM 0.99 MG/DL (0.60-1.30); MAGNESIUM 1.9 MG/DL (1.6-2.4); PHOSPHORUS 3.4 MG/DL (2.3-4.7); POTASSIUM 3.7 MMOL/L (3.6-5.0); TOTAL PROTEIN 6.1 GM/DL (6.4-8.2)
--- NOTE | 2023-04-22 06:30 | Progress Note ---
Objective Exam Last Set of Vital Signs Vital Signs Date Time Temp Pulse Resp B/P (MAP) Pulse Ox O2 Delivery O2 Flow Rate FiO2 04/22/23 04:00 71 13 111/72 (85) 95 Room Air 04/22/23 03:35 36.4 04/21/23 22:32 1.00 Capillary Refill : Less Than 3 Seconds I&O Intake and Output 04/22/23 00:00 Intake Total 2610 ml Output Total 1375 ml Balance 1235 ml Intake Oral 1985 ml IV Total 625 ml Output Urine Total 1375 ml # Voids 1 Results/Procedures Lab Laboratory Tests 04/22/23 04:12: White Blood Count 10.2, Red Blood Count 4.37, Hemoglobin 12.4L, Hematocrit 37L, Mean Corpuscular Volume 85, Mean Corpuscular Hemoglobin 28, Mean Corpuscular Hemoglobin Concent 33, Red Cell Distribution Width 12.9, Platelet Count 249, Mean Platelet Volume 10.0, Immature Granulocyte % (Auto) 0, Neutrophils (%) (Au to) 56, Lymphocytes (%) (Auto) 28, Monocytes (%) (Auto) 12, Eosinophils (%) (Auto) 3, Basophils (%) (Auto) 1, Neutrophils # (Auto) 5.7, Lymphocytes # (Auto) 2.9, Monocytes # (Auto) 1.2H, Eosinophils # (Auto) 0.3, Basophils # (Auto) 0.1, Immature Granulocyte # (Auto) 0.0, Sodium Level 136, Potassium Level 3.7, Chloride Level 107, Carbon Dioxide Level 20L, Anion Gap 9, Blood Urea Nitrogen 14, Creatinine 0.99, Estimat Glomerular Filtration Rate 85, BUN/Creatinine Ratio 14, Glucose Level 92, Calcium Level 8.5, Corrected Calcium 8.7, Phosphorus Level 3.4, Magnesium Level 1.9, Total Bilirubin 0.2, Aspartate Amino Transf (AST/SGOT) 40H, Alanine Aminotransferase (ALT/SGPT) 49, Alkaline Phosphatase 69, Total Protein 6.1L, Albumin 3.7 Assessment/Plan Assessment/Plan (1) Atrial flutter Status: Acute Assessment & Plan: Pt with new dx Aflutter a few days ago, now with uncontrolled atrial flutter on EKG PLAN: Consult cardiology - PATO cardioversion 04/21 Diltiazem gtt Telemetry RELEASE SPECIALIST Eliquis 5mg BID (last dose this morning 5mg) Qualifiers: Qualified Codes: I48.92 - Unspecified atrial flutter (2) Palpitations (3) COPD (chronic obstructive pulmonary disease) Assessment & Plan: Not on home O2 PLAN: MAT protocol Supplemental O2 if needed (4) HTN (hypertension) Assessment & Plan: PLAN: Holding RELEASE SPECIALIST lisinopril 40 CHACORTA PENDLETON MD, RESIDENT Apr 22, 2023 06:30
--- NOTE | 2023-04-22 08:53 | Cardiology Progress Note ---
Subjective Date Seen by Provider: Apr 22, 2023 Time Seen by Provider: 08:52 Subjective/Events-last exam Patient was seen at bedside, laying down comfortably, denied any chest pain. Review of Systems General: No Chills, No Night Sweats, No Fatigue, No Malaise, No Appetite, No Other HEENT: No Head Aches, No Visual Changes, No Eye Pain, No Ear Pain, No Dysphasia, No Sinus Congestion, No Post Nasal Drip, No Sore Throat, No Other Pulmonary: No Dyspnea, No Cough, No Pleuritic Chest Pain, No Other Cardiovascular: No: Chest Pain, Palpitations, Orthopnea, Paroxysmal Noc. Dyspnea, Edema, Lt Headedness, Other Objective-Cardiology Exam Last Set of Vital Signs Vital Signs 04/21/23 04/22/23 04/22/23 22:32 04:00 07:59 Temp 36.7 Pulse 71 Resp 13 B/P (MAP) 111/72 (85) Pulse Ox 95 O2 Delivery Room Air O2 Flow Rate 1.00 I&O Intake and Output 04/22/23 00:00 Intake Total 2610 ml Output Total 1375 ml Balance 1235 ml Intake Oral 1985 ml IV Total 625 ml Output Urine Total 1375 ml # Voids 1 General: Alert, Oriented X3, No Acute Distress HEENT: Atraumatic, PERRLA Neck: Supple, No JVD, No Thyromegaly Lungs: Clear to Auscultation Heart: Regular Rate, Normal S1, Normal S2 Abdomen: Soft, No Tenderness Extremities: No Clubbing, No Cyanosis, No Edema, Normal Pulses, No Tenderness/Swelling Skin: No Rashes Neuro: Normal Speech Psych/Mental Status: Mental Status NL, Mood NL Results Lab Laboratory Tests 04/22/23 04:12 A/P-Cardiology Admission Diagnosis Atrial flutter Palpitation Hypertension Hyperlipidemia Assessment/Plan Atrial flutter of unknown duration, difficult to achieve adequate control Started on Cardizem CD 180 as an outpatient without improvement, heart rate at rest is controlled but increased significantly with minimal activity Underwent PATO with electrical cardioversion on April 21, 2023 Currently in sinus rhythm, tolerating Cardizem CD 120 mg daily. Okay for discharge and follow-up as an outpatient Palpitation, secondary to atrial flutter Hypertension, maintained on Cardizem and lisinopril. Monitor blood pressure [id number] score 2, started on Eliquis on April 18, 2023. Planning to continue on oral anticoagulation Hyperlipidemia, monitor lipids Arthritis and joint pain. Family history of irregular heartbeat and atrial fibrillation/flutter Okay for discharge if he is tolerating Cardizem CD and arrange for follow-up as an outpatient Patient will need referral for EP evaluation and ablation QUOC CLAROS MD Apr 22, 2023 08:53
[2023-04-22] MEDS: APIXABAN 5 MG TABLET PO SCH (09:14)
[2023-04-22] MEDS: meTOprolol TARTRATE (IR) 25 MG TABLET PO SCH (09:14)
[2023-04-22] MEDS: DOCUSATE SODIUM 100 MG CAPSULE PO SCH (09:14)
[2023-04-22] MEDS: dilTIAZem ER 120 MG CAPSULE PO SCH (09:14)
[2023-04-22] MEDS ORDERED: APIX5TAB PO (10:26)
[2023-04-22] MEDS ORDERED: DILT-27 PO (10:26)
--- NOTE | 2023-04-22 10:27 | Discharge Summary ---
CHACORTA PENDLETON MD, RESIDENT 04/22/23 1027: Discharge Summary Hospital Course Problems Reviewed?: Yes Problems/Diagnosis: (1) Atrial flutter Status: Acute Assessment & Plan: Pt with new dx Aflutter a few days ago, now with uncontrolled atrial flutter on EKG. Patient underwent cardioversion yesterday which was successful and both rhythm and rate were well controlled post cardioversion. PLAN: Patient was well managed on Cardizem 120 mg with both for rate and rhythm control Cleared for discharge per cardiology Plan for close follow-up in the outpatient by cardiology and referral sent to EP Follow-up with PCP in 1 week Continue Eliquis 5 mg twice daily Qualifiers: Qualified Codes: I48.92 - Unspecified atrial flutter (2) Palpitations Status: Acute Assessment & Plan: See above (3) COPD (chronic obstructive pulmonary disease) Assessment & Plan: Not on home O2 PLAN: Continued home medications Supplemental O2 if needed (4) HTN (hypertension) Assessment & Plan: PLAN: Holding [employer] lisinopril 40 Hospital Course Date of Admission: Apr 20, 2023 at 14:07 Admission Diagnosis : Palpitations [facility] Date of [facility]charge: 04/22/23 Discharge Diagnosis: [Atrial flutter] Hospital Course: [Patient is a 67-year-old male with a past medical history of hypertension, hyperlipidemia and COPD with a new diagnosis of atrial flutter. He presented with atrial flutter with rates in the 160s. He was thus admitted to the hospital for further management. Cardiology was consulted who noted that patient was given an IV Cardizem bolus which helped decrease his rate however rhythm was still irregular. He thus underwent cardioversion yesterday which was successful. We maintained Cardizem 120 post cardioversion and patient continue to maintain rate and rhythm. He was otherwise stable for discharge home. We will follow-up closely with cardiology and PCP in the outpatient. We will also send referral to EP for evaluation for possible ablation.] Labs and Pending Lab Test: Laboratory Tests 04/22/23 04:12: White Blood Count 10.2, Red Blood Count 4.37, Hemoglobin 12.4L, Hematocrit 37L, Mean Corpuscular Volume 85, Mean Corpuscular Hemoglobin 28, Mean Corpuscular Hemoglobin Concent 33, Red Cell Distribution Width 12.9, Platelet Count 249, Mean Platelet Volume 10.0, Immature Granulocyte % (Auto) 0, Neutrophils (%) (Auto) 56, Lymphocytes (%) (Auto) 28, Monocytes (%) (Auto) 12, Eosinophils (%) (Auto) 3, Basophils (%) (Auto) 1, Neutrophils # (Auto) 5.7, Lymphocytes # (Auto) 2.9, Monocytes # (Auto) 1.2H, Eosinophils # (Auto) 0.3, Basophils # (Auto) 0.1, Immature Granulocyte # (Auto) 0.0, Sodium Level 136, Potassium Level 3.7, Chloride Level 107, Carbon Dioxide Level 20L, Anion Gap 9, Blood Urea Nitrogen 14, Creatinine 0.99, Estimat Glomerular Filtration Rate 85, BUN/Creatinine Ratio 14, Glucose Level 92, Calcium Level 8.5, Corrected Calcium 8.7, Phosphorus Level 3.4, Magnesium Level 1.9, Total Bilirubin 0.2, Aspartate Amino Transf (AST/SGOT) 40H, Alanine Aminotransferase (ALT/SGPT) 49, Alkaline Phosphatase 69, Total Protein 6.1L, Albumin 3.7 Home Meds Active Reported Trazodone HCl 50 Mg Tablet 50 Mg PO HS Atorvastatin Calcium 20 Mg Tablet 20 Mg PO DAILY Lisinopril 40 Mg Tablet 40 Mg PO DAILY Ventolin Hfa (Albuterol Sulfate) 90 Mcg Hfa.aer.ad 2 Puff INH Q6H PRN MDD E Cardizem Cd (Diltiazem HCl) 180 Mg Cap.er.24h 180 Mg PO DAILY Eliquis (Apixaban) 5 Mg Tablet 5 Mg PO BID Tylenol 8 Hour (Acetaminophen) 650 Mg Tablet.er 650 Mg PO Q6H PRN Diazepam 5 Mg Tablet 2.5 Mg PO HS TAKES OF A 5MG TAB Carbamazepine 200 Mg Tablet 200 Mg PO BID Iprat-Albut 0.5-3(2.5) mg/3 ml (Ipratropium/Albuterol Sulfate) 0.5 Mg-3 Mg (2.5 Mg Base)/3 Ml Ampul.neb 3 Ml IH Q6H PRN Meloxicam 15 Mg Tablet 15 Mg PO DAILY PRN Assessment/Pt DC Instructions Please see electronic discharge instructions given to patient. Discharge Diet: No Restrictions Activity as Tolerated: Yes Consulations Consultations Cardiology Discharge Physical Examination Allergies: Coded Allergies: No Known Drug Allergies (Unverified , 03/30/23) General Appearance: No Apparent Distress HEENT: PERRL/EOMI Respiratory: Chest Non Tender, Lungs Clear, Normal Breath Sounds, No Accessory Muscle Use, No Respiratory Distress Cardiovascular: Regular Rate, Rhythm, No Edema, No Murmur Gastrointestinal: Normal Bowel Sounds, Non Tender Extremity: No Pedal Edema Skin: Normal Color Neurologic/Psychiatric: Alert, Oriented x3 Copy Copies To 1: SVITLANA Melendez MD 04/22/23 1125: Discharge Summary Discharge Physical Examination Allergies: Coded Allergies: No Known Drug Allergies (Unverified , 03/30/23) Copy Copies To 1: Corinna Leal Supervisory-Addendum Brief Supervisory Addendum I personally performed the logan portions of the visit, discussed case with resident and concur with resident documentation of history, physical exam, assessment and treatment plan unless otherwise noted. CHACORTA PENDLETON MD, RESIDENT Apr 22, 2023 10:27 SVITLANA BURGESS MD Apr 22, 2023 11:25
== END 2023-04-22 13:00 | disposition home or self-care (01) | DRG 310 ==
LOC: EDUNIT# 10:29 → ER FS 10:30 → ICU 14:07
PROVIDERS: ADMIT Family Medicine; ATTEND Family Medicine
PROC: 5A2204Z Restoration of Cardiac Rhythm, Single (ICD-10-PCS; principal; 2023-04-21)
DX: I48.92 Unspecified atrial flutter (principal); J44.9 Chronic obstructive pulmonary disease, unspecified; I10 Essential (primary) hypertension; E78.5 Hyperlipidemia, unspecified; M19.90 Unspecified osteoarthritis, unspecified site; Z87.891 Personal history of nicotine dependence
CPT/HCPCS: 36415; 71045; 80053; 80306; 83690; 83735; 83880; 84100; 84443; 84484; 85025; 85027; 85610; 85730; 87081; 93005; 93041; 93306; 94640; 94760; 94799